=== PATIENT | male | born 1950 | race Caucasian/White ===

== ENCOUNTER 2016-05-10 12:56 | Inpatient (IN) | payer MEDICARE, OTHER ==
[~2016-05-10] VITALS: Ht 182.9 cm; Wt 111.1 kg
[2016-05-10 13:30] LABS: BASOPHILS % (AUTO) 0 % (0-10); EOSINOPHILS % (AUTO) 0 % (0-10); LYMPHOCYTES # (AUTO) 0.7 X 10^3 (1.0-4.0); LYMPHOCYTES % (AUTO) 7 % (12-44); MEAN CORPUSCULAR HEMOGLOBIN 33 PG (25-34); MEAN CORPUSCULAR HGB CONC 35 G/DL (32-36); MEAN CORPUSCULAR VOLUME 92 FL (80-99); MEAN PLATELET VOLUME 12.9 FL (7.4-10.4); MONOCYTES # (AUTO) 1.1 X 10^3 (0.0-1.0); MONOCYTES % (AUTO) 11 % (0-12); NEUTROPHILS # (AUTO) 8.4 X 10^3 (1.8-7.8); NEUTROPHILS % (AUTO) 81 % (42-75); PLATELET COUNT 100 10^3/uL (130-400); RED BLOOD COUNT 5.65 10^6/uL (4.35-5.85); RED CELL DISTRIBUTION WIDTH 16.9 % (10.0-14.5); WHITE BLOOD COUNT 10.3 10^3/uL (4.3-11.0)
[2016-05-10] MEDS ORDERED: KETOROLAC 30 MG/ML VIAL IVP ONE (13:30)
[2016-05-10] MEDS ORDERED: IOHEXOL 350 MG/ML 100 ML (OMNIPAQUE 350) VIAL IV ONE (13:30)
[2016-05-10] MEDS ORDERED: NS 100 ML (IVPB) BAG IV ONE (13:30)
[2016-05-10 13:37] LABS: ABG BASE EXCESS -0.7 MMOL/L (-2.5-2.5); ABG HCO3 24 MMOL/L (23-27); ABG OXYGEN SATURATION 80 % (94-100); ABG PCO2 38 MMHG (35-45); ABG PH 7.41 (7.37-7.43); ABG PO2 41 MMHG (79-93); ABG TCO2 24.8 MMOL/L (21.0-31.0)
[2016-05-10 13:39] LABS: ALLENS TEST YES-POS; PATIENT TEMP 98.4
[2016-05-10 13:39] LABS: INR 1.1 (0.8-1.4); PROTHROMBIN TIME PATIENT 13.4 SEC (12.2-14.7)
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
[2016-05-10 13:48] LABS: ALANINE AMINOTRANSFERASE 29 U/L (0-55); ALBUMIN 4.3 G/DL (3.2-4.5); AMYLASE 42 U/L (25-125); ANION GAP 12 MMOL/L (5-14); ASPARTATE AMINO TRANSFERASE 39 U/L (5-34); BLOOD UREA NITROGEN 18 MG/DL (7-18); BUN/CREATININE RATIO 13; CALCIUM 9.3 MG/DL (8.5-10.1); CARBON DIOXIDE 21 MMOL/L (21-32); CHLORIDE 106 MMOL/L (98-107); CREATININE SERUM 1.42 MG/DL (0.60-1.30); GFR ESTIMATED 50; GLUCOSE 110 MG/DL (70-105); LIPASE 14 U/L (8-78); MAGNESIUM 2.4 MG/DL (1.8-2.4); POTASSIUM 4.4 MMOL/L (3.6-5.0); SODIUM 139 MMOL/L (135-145); TOTAL PROTEIN 7.4 G/DL (6.4-8.2)
[2016-05-10 13:54] LABS: TROPONIN I < 0.30 NG/ML (<0.30)
[2016-05-10 13:58] LABS: BILIRUBIN,TOTAL 1.6 MG/DL (0.1-1.0)
[2016-05-10 13:59] LABS: LYMPHOCYTES % (MANUAL) 3 %; NEUTROPHILS % (MANUAL) 89 %; REACTIVE LYMPHOCYTES 3 %
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
[2016-05-10] MEDS ORDERED: fentaNYL INJECTION 100 MCG/2 ML AMP IVP STA (16:05)
[2016-05-10] MEDS ORDERED: SUFENTA 0.6MCG/ML BUPIVA 0.125 100 ML ONE (16:46)
[2016-05-10 17:00] VITALS: BP 131/70
[2016-05-10] MEDS ORDERED: CATHETER FLUSH 10 ML SYR IV PRN (17:00)
[2016-05-10] MEDS ORDERED: LACTATED RINGERS 1,000 ML IV SCH (17:25)
[2016-05-10] MEDS ORDERED: diphenhydrAMINE 50 MG/ML INJ (BENADRYL) IV PRN (17:30)
[2016-05-10] MEDS ORDERED: NALOXONE 0.4 MG/ML 1 ML (NARCAN) VIAL IV PRN ×2 (17:30)
[2016-05-10] MEDS ORDERED: ONDANSETRON 4 MG/2 ML (SDV) Z0FRAN IV PRN (17:30)
[2016-05-10] MEDS ORDERED: METOCLOPRAMIDE INJ 10 MG/2 ML (REGLAN) IV PRN (17:30)
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
[2016-05-10] MEDS: D5 1/2 NS 1000 ML IV SOLUTION 1,000 ML IV SCH ×2 (18:36→23:40)
[2016-05-10 19:00] VITALS: BP 138/77
[2016-05-10] MEDS ORDERED: FLU TRIvalent (5 YOA+) 2016-17 (AFLURIA) 0.5 ML IM ONE (19:00)
[2016-05-10] MEDS ORDERED: RT-ALBUTEROL/IPRATROPIUM 3 ML (DUONEB) VIAL INH PRN (19:45)
[2016-05-10] MEDS: RT-ALBUTEROL/IPRATROPIUM 3 ML (DUONEB) VIAL INH SCH ×2 (19:52→22:44)
[2016-05-10 20:00] VITALS: BP 90/75
[2016-05-10 21:00] VITALS: BP 96/61
[2016-05-10 22:00] VITALS: BP 98/66
[2016-05-10 23:00] VITALS: BP 102/60
[2016-05-11] VITALS (11 sets, daily range): BP systolic 88–130; BP diastolic 53–75
[2016-05-11] MEDS ORDERED: LIDOCAINE UROJET 2% GEL 10 ML PKG ONE (02:07)
[2016-05-11] MEDS: D5 1/2 NS 1000 ML IV SOLUTION 1,000 ML IV SCH (02:14)
[2016-05-11] MEDS: RT-ALBUTEROL/IPRATROPIUM 3 ML (DUONEB) VIAL INH SCH ×5 (02:37→22:02)
[2016-05-11] MEDS: EPIDURAL (SUFENTA 0.6MCG/ML BUPIVA 0.125%) 100 ML BAG EPI SCH ×2 (03:34→16:37)
[2016-05-11 04:31] LABS: BASOPHILS % (AUTO) 0 % (0-10); EOSINOPHILS # (AUTO) 0.1 10^3/uL (0.0-0.3); EOSINOPHILS % (AUTO) 1 % (0-10); LYMPHOCYTES # (AUTO) 0.8 X 10^3 (1.0-4.0); LYMPHOCYTES % (AUTO) 11 % (12-44); MEAN CORPUSCULAR HEMOGLOBIN 33 PG (25-34); MEAN CORPUSCULAR HGB CONC 35 G/DL (32-36); MEAN CORPUSCULAR VOLUME 94 FL (80-99); MEAN PLATELET VOLUME 12.6 FL (7.4-10.4); MONOCYTES # (AUTO) 0.9 X 10^3 (0.0-1.0); MONOCYTES % (AUTO) 13 % (0-12); NEUTROPHILS # (AUTO) 5.3 X 10^3 (1.8-7.8); NEUTROPHILS % (AUTO) 75 % (42-75); PLATELET COUNT 84 10^3/uL (130-400); RED BLOOD COUNT 4.96 10^6/uL (4.35-5.85); RED CELL DISTRIBUTION WIDTH 16.6 % (10.0-14.5)
[2016-05-11 04:58] LABS: ALBUMIN 3.4 G/DL (3.2-4.5); BILIRUBIN,TOTAL 1.3 MG/DL (0.1-1.0); CALCIUM 8.1 MG/DL (8.5-10.1); CREATININE SERUM 1.34 MG/DL (0.60-1.30); POTASSIUM 3.9 MMOL/L (3.6-5.0); TOTAL PROTEIN 5.9 G/DL (6.4-8.2)
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
[2016-05-11] MEDS: NICOTINE 14 MG (NICODERM) PATCH TD SCH (08:31)
[2016-05-11] MEDS: NICOTINE PATCH REMOVAL TP SCH (08:32)
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
--- NOTE | 2016-05-11 08:52 | Progress Note (SOAP) ---
Subjective Subjective/Events-last exam uneventful night. Adequate pain control with thoracic epidural. Oxygen saturation improved to more than 90 percent. Review of Systems General: No Chills, No Night Sweats, No Fatigue, No Malaise HEENT: No Head Aches, No Eye Pain, No Ear Pain, No Dysphasia, No Sinus Congestion, No Post Nasal Drip, No Sore Throat Pulmonary: No Dyspnea, No Cough, No Pleuritic Chest Pain Cardiovascular: No: Chest Pain, Edema, Lt Headedness, Orthopnea, Palpitations, Paroxysmal Noc. Dyspnea Gastrointestinal: No: Abdominal Pain, Constipation, Diarrhea, Hematochezia, Melena, Nausea, Vomiting Genitourinary: No Dysuria, No Frequency, No Incontinence, No Hematuria, No Retention Musculoskeletal: No: arm pain, back pain, foot pain, hand pain, leg pain, neck pain, other, shoulder pain Neurological: No: Change in speech, Confusion, Incoordination, Numbness, Other , Seizures, Weakness Objective Exam Vital Signs Date Time Temp Pulse Resp B/P Pulse Ox O2 Delivery O2 Flow Rate FiO2 05/11/16 08:34 97.7 75 15 104/61 90 Nasal Cannula 2.00 05/11/16 07:00 94 05/11/16 06:46 94 2.00 05/11/16 06:00 70 13 105/72 94 Nasal Cannula 2.00 05/11/16 05:00 66 16 109/60 92 Nasal Cannula 2.00 05/11/16 04:11 98.7 05/11/16 04:00 94 2.00 05/11/16 04:00 67 17 103/58 92 Nasal Cannula 2.00 05/11/16 03:00 68 16 88/62 92 Nasal Cannula 2.00 05/11/16 02:37 96 2.00 05/11/16 02:00 78 21 115/53 94 Nasal Cannula 2.00 05/11/16 01:00 86 05/11/16 01:00 86 24 117/57 93 Nasal Cannula 2.00 05/11/16 00:04 97.8 05/11/16 00:00 74 18 94/59 92 Nasal Cannula 2.00 05/11/16 00:00 94 2.00 05/10/16 23:00 73 16 102/60 92 Nasal Cannula 2.00 05/10/16 22:44 94 2.00 05/10/16 22:00 72 17 98/66 90 Nasal Cannula 2.00 05/10/16 21:00 75 17 96/61 91 Nasal Cannula 2.00 05/10/16 20:00 73 15 90/75 96 Nasal Cannula 2.00 05/10/16 20:00 92 2.00 05/10/16 19:54 92 2.00 05/10/16 19:39 93 05/10/16 19:20 98.2 Nasal Cannula 2.00 05/10/16 19:00 70 18 138/77 96 Nasal Cannula 2.00 05/10/16 19:00 93 05/10/16 17:00 93 2.00 05/10/16 17:00 98.0 77 11 131/70 97 Nasal Cannula 2.00 05/10/16 16:36 73 16 95 2 05/10/16 13:05 98.4 83 15 161/82 93 Room Air 2 05/10/16 13:05 93 Nasal Cannula 2 I & O 05/11/16 07:00 Intake Total 1110 ml Output Total 600 ml Balance 510 ml Capillary Refill : Less Than 3 Seconds General Appearance: No Apparent Distress HEENT: PERRL/EOMI Neck: Normal Inspection Respiratory: Decreased Breath Sounds Cardiovascular: Regular Rate, Rhythm Gastrointestinal: non tender soft Extremity: Normal Capillary Refill Normal Inspection Neurologic/Psychiatric: Alert Oriented x3 Skin: Warm/Dry Results Lab Laboratory Tests 05/10/16 13:20: Activated Partial Thromboplast Time 26, Alanine Aminotransferase (ALT/SGPT) 29, Albumin 4.3, Alkaline Phosphatase 120, Amylase Level 42, Anion Gap 12, Aspartate Amino Transf (AST/SGOT) 39H, BUN/Creatinine Ratio 13, Basophils # ( Auto) 0.0, Basophils (%) (Auto) 0, Blood Morphology Comment NORMAL, Blood Urea Nitrogen 18, Calcium Level 9.3, Carbon Dioxide Level 21, Chloride Level 106, Creatinine 1.42H, Eosinophils # (Auto) 0.0, Eosinophils (%) (Auto) 0, Estimat Glomerular Filtration Rate 50, Glucose Level 110H, Hematocrit 52, Hemoglobin 18.4H, INR Comment 1.1, Lipase 14, Lymphocytes # (Auto) 0.7L, Lymphocytes % ( Manual) 3, Lymphocytes (%) (Auto) 7L, Magnesium Level 2.4, Mean Corpuscular Hemoglobin 33, Mean Corpuscular Hemoglobin Concent 35, Mean Corpuscular Volume 92, Mean Platelet Volume 12.9H, Monocytes # (Auto) 1.1H, Monocytes % (Manual) 5 , Monocytes (%) (Auto) 11, Neutrophils # (Auto) 8.4H, Neutrophils % (Manual) 89 , Neutrophils (%) (Auto) 81H, Platelet Count 100L, Potassium Level 4.4, Prothrombin Time 13.4, Reactive Lymphocytes 3, Red Blood Count 5.65, Red Cell Distribution Width 16.9H, Sodium Level 139, Total Bilirubin 1.6H, Total Protein 7.4, Troponin I < 0.30, White Blood Count 10.3 05/10/16 13:28: Benjamin Test YES-POS, Arterial Blood Base Excess -0.7, Arterial Blood HCO3 24, Arterial Blood Oxygen Saturation 80L, Arterial Blood Partial Pressure CO2 38, Arterial Blood Partial Pressure O2 41L, Arterial Blood Total CO2 24.8, Arterial Blood pH 7.41, Blood Gas Inspired Oxygen 2, Blood Gas Patient Temperature 98.4, Blood Gas Puncture Site LT RADIAL, Blood Gas Ventilator Setting NO 05/11/16 03:45: Alanine Aminotransferase (ALT/SGPT) 26, Albumin 3.4, Alkaline Phosphatase 92, Anion Gap 12, Aspartate Amino Transf (AST/SGOT) 33, BUN/Creatinine Ratio 19, Basophils # (Auto) 0.0, Basophils (%) (Auto) 0, Blood Urea Nitrogen 25H, Calcium Level 8.1L, Carbon Dioxide Level 21, Chloride Level 102, Creatinine 1.34H, Eosinophils # (Auto) 0.1, Eosinophils (%) (Auto) 1, Estimat Glomerular Filtration Rate 53, Glucose Level 118H, Hematocrit 47, Hemoglobin 16.1, Lymphocytes # (Auto) 0.8L, Lymphocytes (%) (Auto) 11L, Mean Corpuscular Hemoglobin 33, Mean Corpuscular Hemoglobin Concent 35, Mean Corpuscular Volume 94, Mean Platelet Volume 12.6H, Monocytes # (Auto) 0.9, Monocytes (%) (Auto) 13H , Neutrophils # (Auto) 5.3, Neutrophils (%) (Auto) 75, Platelet Count 84L, Potassium Level 3.9, Red Blood Count 4.96, Red Cell Distribution Width 16.6H, Sodium Level 135, Total Bilirubin 1.3H, Total Protein 5.9L, White Blood Count 7.0 Assessment/Plan Assessment/Plan Assess & Plan/Chief Complaint gentleman with isolated left rib fractures. Epidural in place. Could be transferred to the floor. Diagnosis/Problems: Final Diagnosis fracture of ribs left side fixed to the ninth. Pulmonary contusion. Chronic smoking Clinical Quality Measures DVT/VTE Risk/Contraindication: Risk Factor Score Per Nursin RFS Level Per Nursing on Admit: 3=High SYLVIA CARRILLO MD May 11, 2016 8:52 am
[2016-05-11] MEDS ORDERED: CARB15DR3 OU (13:07)
[2016-05-11] MEDS ORDERED: LISI-552 PO (13:07)
[2016-05-11] MEDS ORDERED: CETI10TA17 PO (13:07)
[2016-05-11] MEDS ORDERED: PROP15DR OU (13:07)
--- NOTE | 2016-05-11 14:49 | Progress Note-Standard ---
Standard Progress Note Progress Notes/Assess & Plan Progress/Assessment & Plan 05/11/16 [id number]: Patient in ICU 10. Sitting up in bed. Thoracic epidural running at 8cc/hr. Patient reports pain of zero/10. No complaints. JOHNIE JUAN CRNA May 11, 2016 14:49
[2016-05-12 00:25] VITALS: BP 117/73
[2016-05-12] MEDS: RT-ALBUTEROL/IPRATROPIUM 3 ML (DUONEB) VIAL INH SCH ×6 (01:59→22:02)
[2016-05-12] MEDS: EPIDURAL (SUFENTA 0.6MCG/ML BUPIVA 0.125%) 100 ML BAG EPI SCH ×2 (03:35→15:08)
[2016-05-12 04:00] VITALS: BP 110/70
[2016-05-12 08:00] VITALS: BP 129/56
[2016-05-12] MEDS: NICOTINE 14 MG (NICODERM) PATCH TD SCH (08:12)
[2016-05-12] MEDS: NICOTINE PATCH REMOVAL TP SCH (08:14)
[2016-05-12] MEDS ORDERED: MAGNESIUM CITRATE 300 ML BTL PO NR (10:45)
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
[2016-05-12] MEDS: lisINopril 10 MG (PRINIVIL) TAB PO SCH (11:39)
[2016-05-12 12:54] VITALS: BP 139/69
[2016-05-12 16:00] VITALS: BP 128/59
[2016-05-12 20:00] VITALS: BP 144/67
[2016-05-13] VITALS: BP 126/58
[2016-05-13] MEDS: RT-ALBUTEROL/IPRATROPIUM 3 ML (DUONEB) VIAL INH SCH ×5 (02:20→20:34)
[2016-05-13 04:00] VITALS: BP 126/61
[2016-05-13 08:00] VITALS: BP 131/80
[2016-05-13] MEDS: EPIDURAL (SUFENTA 0.6MCG/ML BUPIVA 0.125%) 100 ML BAG EPI SCH (08:10)
[2016-05-13] MEDS ORDERED: lisINopril 10 MG (PRINIVIL) TAB PO SCH (09:00)
[2016-05-13] MEDS: NICOTINE 14 MG (NICODERM) PATCH TD SCH (09:14)
[2016-05-13] MEDS: lisINopril 10 MG (PRINIVIL) TAB PO SCH (09:14)
[2016-05-13] MEDS: NICOTINE PATCH REMOVAL TP SCH (09:14)
[2016-05-13 12:00] VITALS: BP 139/82
--- NOTE | 2016-05-13 13:37 | Progress Note-Standard ---
Standard Progress Note Progress Notes/Assess & Plan Progress/Assessment & Plan removal of epidural catheter, tip intact. REAGAN ANDREA CRNA May 13, 2016 13:37
--- NOTE | 2016-05-13 15:24 | Progress Note (SOAP) ---
Subjective Subjective/Events-last exam Patient reports doing better now that epidural and frank have been DC'd. Patient up in bedside chair. Reports he is having some discomfort of the left chest/back area. Tolerating diet. Having BMs. No N/V. No abdominal pain. Reports that it hurts to cough and deep breathe. Review of Systems General: No Chills, No Night Sweats Gastrointestinal: No: Abdominal Pain, Constipation, Nausea, Vomiting Objective Exam Vital Signs Date Time Temp Pulse Resp B/P Pulse Ox O2 Delivery O2 Flow Rate FiO2 05/13/16 15:10 91 05/13/16 12:00 99.1 94 20 139/82 92 Nasal Cannula 1.00 05/13/16 10:17 94 0.50 05/13/16 08:00 95 20 131/80 94 Nasal Cannula 1.00 05/13/16 08:00 99.6 05/13/16 08:00 2.00 05/13/16 06:42 93 0.50 05/13/16 04:00 100.0 97 20 126/61 90 Nasal Cannula 1.00 05/13/16 02:20 93 05/13/16 00:00 99.9 102 20 126/58 92 Nasal Cannula 0.00 05/12/16 22:03 93 05/12/16 20:00 2.00 05/12/16 20:00 97.8 90 18 144/67 93 Nasal Cannula 2.00 05/12/16 18:36 92 05/12/16 16:00 98.2 82 18 128/59 94 Nasal Cannula 2.00 I & O 05/13/16 07:00 Intake Total 2580 ml Output Total 1000 ml Balance 1580 ml Capillary Refill : Less Than 3 Seconds General Appearance: No Apparent Distress WD/WN HEENT: PERRL/EOMI Neck: Full Range of Motion Normal Inspection Supple Respiratory: No Accessory Muscle Use No Respiratory Distress Cardiovascular: Regular Rate, Rhythm No Edema Gastrointestinal: normal bowel sounds non tender soft Extremity: Normal Capillary Refill Normal Inspection Normal Range of Motion Neurologic/Psychiatric: Alert Oriented x3 Skin: Normal Color Warm/Dry Assessment/Plan Assessment/Plan Assess & Plan/Chief Complaint Isolated left rib fractures fifth to the midline and associated pulmonary contusion. Epidural and Frank DC'd diet. Encourage ambulation and IS. Duoneb breathing treatments. PO pain medication PRN. Diagnosis/Problems: Clinical Quality Measures DVT/VTE Risk/Contraindication: Risk Factor Score Per Nursin RFS Level Per Nursing on Admit: 3=High BRYCE AKBAR APRN May 13, 2016 15:23
[2016-05-13 16:53] VITALS: BP 123/58
[2016-05-13 20:05] VITALS: BP 129/65
[2016-05-13] MEDS: oxyCODONE/APAP 5/325MG (PERCOCET 5) TABLET PO PRN (21:02)
[2016-05-14] VITALS: BP 123/86
[2016-05-14 04:10] VITALS: BP 142/65
[2016-05-14] MEDS: oxyCODONE/APAP 5/325MG (PERCOCET 5) TABLET PO PRN ×2 (04:21→07:47)
[2016-05-14] MEDS: RT-ALBUTEROL/IPRATROPIUM 3 ML (DUONEB) VIAL INH SCH (07:43)
[2016-05-14 08:00] VITALS: BP 147/67
[2016-05-14] MEDS: NICOTINE PATCH REMOVAL TP SCH (08:47)
[2016-05-14] MEDS: NICOTINE 14 MG (NICODERM) PATCH TD SCH (08:47)
[2016-05-14] MEDS: lisINopril 10 MG (PRINIVIL) TAB PO SCH (08:48)
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
[2016-05-14] MEDS ORDERED: HYDR-3812 PO (11:55)
--- NOTE | 2016-05-14 11:57 | Discharge Inst-Simple/Standard ---
Discharge Inst-Standard Discharge Medications New, Converted or Re-Newed RX: RX on Chart Patient Instructions/Follow Up Plan of Care/Instructions/FU: To use incentive spirometry at home. F/U in 10 days Activity as Tolerated: Yes Discharge Diet: No Restrictions SYLVIA CARRILLO MD May 14, 2016 11:56 am
[2016-05-14 12:00] VITALS: BP 118/58
--- NOTE | 2016-05-14 12:00 | Progress Note (SOAP) ---
Subjective Subjective/Events-last exam Pain control much better. Able to get out of bed and move around by himself. Review of Systems General: No Chills, No Night Sweats, No Fatigue, No Malaise HEENT: No Head Aches, No Eye Pain, No Ear Pain, No Dysphasia, No Sinus Congestion, No Post Nasal Drip, No Sore Throat Pulmonary: Cough Pleuritic Chest Pain Cardiovascular: No: Chest Pain, Edema, Lt Headedness, Orthopnea, Palpitations, Paroxysmal Noc. Dyspnea Gastrointestinal: No: Abdominal Pain, Constipation, Diarrhea, Hematochezia, Melena, Nausea, Vomiting Genitourinary: No Dysuria, No Frequency, No Incontinence, No Hematuria, No Retention Musculoskeletal: No: arm pain, back pain, foot pain, hand pain, leg pain, neck pain, other, shoulder pain Neurological: No: Change in speech, Confusion, Incoordination, Numbness, Other , Seizures, Weakness Objective Exam Vital Signs Date Time Temp Pulse Resp B/P Pulse Ox O2 Delivery O2 Flow Rate FiO2 05/14/16 08:00 91 0.00 05/14/16 08:00 98.8 75 20 147/67 91 Room Air 05/14/16 07:43 91 05/14/16 04:10 99.6 78 22 142/65 92 Room Air 05/14/16 00:00 98.1 91 18 123/86 93 Room Air 05/13/16 20:34 90 05/13/16 20:05 100.2 92 18 129/65 95 Room Air 05/13/16 16:53 100.1 94 20 123/58 92 05/13/16 15:12 92 05/13/16 15:10 91 05/13/16 12:00 99.1 94 20 139/82 92 Nasal Cannula 1.00 I & O 05/14/16 07:00 Intake Total 1950 ml Output Total 625 ml Balance 1325 ml Capillary Refill : Less Than 3 Seconds General Appearance: No Apparent Distress Neck: Normal Inspection Respiratory: Lungs Clear Cardiovascular: Regular Rate, Rhythm Gastrointestinal: non tender soft no organomegaly Extremity: Normal Inspection Neurologic/Psychiatric: Alert Oriented x3 Skin: Warm/Dry Assessment/Plan Assessment/Plan Assess & Plan/Chief Complaint gentleman with isolated left rib fractures. Epidural in place. Could be transferred to the floor. isolated left rib fractures fifth to the midline. Associated pulmonary contusion. Epidural be removed within 24 hours. Magnesium citrate to address constipation. Pain control better. Discharge home Diagnosis/Problems: Final Diagnosis Fracture of ribs on the left side Clinical Quality Measures DVT/VTE Risk/Contraindication: Risk Factor Score Per Nursin RFS Level Per Nursing on Admit: 3=High SYLVIA CARRILLO MD May 14, 2016 12:00 pm
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
--- NOTE | 2016-06-14 08:12 | Anesthesia Pain Mgmt-Epidural ---
Anesthesia-Pain Mgmnt Epidural Pre-Procedure Indication: Analgesia Chart Review and Risk/Benefits/Options Discussed Procedure Date of Service: May 12, 2016 Time of Service: 13:03 Progress Note post dated note pt doing well CARMEN BALES CRNA Jun 14, 2016 08:12
== END 2016-05-14 14:06 | disposition home or self-care (01) | DRG 184 ==
LOC: ER 13:02 → ICU 14:50 → 4TH 05-11 14:59
PROVIDERS: ADMIT Surgery; ATTEND Surgery
DX: S22.42XA Multiple fractures of ribs, left side, initial encounter for closed fracture (principal); S27.321A Contusion of lung, unilateral, initial encounter; S40.012A Contusion of left shoulder, initial encounter; J41.0 Simple chronic bronchitis; I10 Essential (primary) hypertension; F17.210 Nicotine dependence, cigarettes, uncomplicated; K59.00 Constipation, unspecified; J98.4 Other disorders of lung; Z86.19 Personal history of other infectious and parasitic diseases; V29.9XXA Motorcycle rider (driver) (passenger) injured in unspecified traffic accident, initial encounter; Y92.89 Other specified places as the place of occurrence of the external cause
CPT/HCPCS: 36415; 70450; 71010; 71260; 72125; 74177; 80053; 82150; 82805; 83690; 83735; 84484; 85007; 85025; 85027; 85610; 85730; 93005; 93041; 94010; 94640; 94664; 94760; 96374; 96375

== ENCOUNTER 2018-03-16 12:28 | Outpatient (CLI) | payer MEDICARE ==
[~2018-03-16] VITALS: Ht 182.9 cm; Wt 109.9 kg
[~2018-03-16 12:28] MED LIST: ACHD5005 PO; CARB15DR3 OU; CETI10TA17 PO; LISI-552 PO; PROP15DR OU
[2018-03-16 12:42] VITALS: BP 141/75
[2018-03-16 13:04] LABS: BASOPHILS % (AUTO) 0 % (0-10); EOSINOPHILS # (AUTO) 0.1 10^3/uL (0.0-0.3); EOSINOPHILS % (AUTO) 2 % (0-10); HEMATOCRIT 50 % (40-54); HEMOGLOBIN 17.3 G/DL (13.3-17.7); LYMPHOCYTES # (AUTO) 0.7 X 10^3 (1.0-4.0); LYMPHOCYTES % (AUTO) 15 % (12-44); MEAN CORPUSCULAR HEMOGLOBIN 31 PG (25-34); MEAN CORPUSCULAR HGB CONC 35 G/DL (32-36); MEAN CORPUSCULAR VOLUME 90 FL (80-99); MEAN PLATELET VOLUME 11.1 FL (7.4-10.4); MONOCYTES # (AUTO) 0.6 X 10^3 (0.0-1.0); MONOCYTES % (AUTO) 13 % (0-12); NEUTROPHILS # (AUTO) 3.4 X 10^3 (1.8-7.8); NEUTROPHILS % (AUTO) 70 % (42-75); PLATELET COUNT 104 10^3/uL (130-400); RED BLOOD COUNT 5.52 10^6/uL (4.35-5.85); RED CELL DISTRIBUTION WIDTH 14.3 % (10.0-14.5); WHITE BLOOD COUNT 4.8 10^3/uL (4.3-11.0)
[2018-03-16 13:22] LABS: BUN/CREATININE RATIO 10; CARBON DIOXIDE 21 MMOL/L (21-32); CHLORIDE 102 MMOL/L (98-107); CREATININE SERUM 0.99 MG/DL (0.60-1.30); GFR ESTIMATED > 60; GLUCOSE 94 MG/DL (70-105); POTASSIUM 4.1 MMOL/L (3.6-5.0); SODIUM 133 MMOL/L (135-145)
--- NOTE | 2018-03-16 13:58 | Diagnostic Imaging Report ---
CLINICAL INDICATION: Preop chest x-ray for neck biopsy. EXAM: Chest x-ray PA and lateral views. COMPARISONS: Chest x-ray dated 05/11/2016. FINDINGS: Lungs/pleura: There are curvilinear opacities in both lung bases suspected to represent atelectasis. There is no lung infiltrate. Remainder of the lungs are clear. There is no pneumothorax. There is no pleural effusion. Mediastinum: Unremarkable. Pulmonary vasculature: Unremarkable. Heart: Unremarkable. Bones/extrathoracic soft tissue: There are hypertrophic spurs involving the thoracic spine. IMPRESSION: Suspected mild bibasilar atelectasis. Otherwise, there is no radiographic evidence of acute cardiopulmonary process. Dictated by: Dictated on workstation # [id number]
== END 2018-03-16 14:31 | disposition home or self-care (01) ==
LOC: PREOP 12:28
PROVIDERS: ATTEND Otolaryngology Otolaryngology/Facial Plastic Surgery
DX: Z01.810 Encounter for preprocedural cardiovascular examination (principal); Z01.811 Encounter for preprocedural respiratory examination; Z01.812 Encounter for preprocedural laboratory examination; Z11.2 Encounter for screening for other bacterial diseases; R22.1 Localized swelling, mass and lump, neck
CPT/HCPCS: 36415; 71046; 80048; 85025; 87081; 93005

== ENCOUNTER 2018-03-23 06:46 | Day surgery (SDC) | payer MEDICARE ==
[~2018-03-23] VITALS: Ht 182.9 cm; Wt 109.9 kg
[2018-03-23 07:10] VITALS: BP 130/67
[2018-03-23] MEDS ORDERED: LACTATED RINGERS 1,000 ML IV PRN (07:21)
[2018-03-23] MEDS ORDERED: CATHETER FLUSH 10 ML SYR IV PRN (07:45)
[2018-03-23] MEDS ORDERED: LIDOCAINE PF 2% 5 ML (XYLOCAINE) VIAL ONE (07:53)
[2018-03-23] MEDS ORDERED: ONDANSETRON 4 MG/2 ML (SDV) Z0FRAN ONE (07:53)
[2018-03-23] MEDS ORDERED: proPOfol 200 MG/20 ML (DIPRIVAN) VIAL IV ONE (07:53)
[2018-03-23] MEDS ORDERED: ROCURONIUM 10 MG/ML 5 ML SYRINGE IV ONE (07:53)
[2018-03-23] MEDS ORDERED: fentaNYL INJECTION 100 MCG/2 ML AMP ONE (07:53)
[2018-03-23] MEDS ORDERED: MIDAZOLAM 2 MG/2 ML (VERSED) VIAL ONE (07:53)
[2018-03-23] MEDS ORDERED: MUPIROCIN 2% OINT 22 GM (BACTROBAN) TUBE ONE (07:57)
[2018-03-23] MEDS ORDERED: LIDOCAINE/EPI 1%-1:100,000 (XYLOCAINE) 20ML ONE (07:57)
--- NOTE | 2018-03-23 09:30 | Progress Note-Pre Operative ---
Pre-Operative Progress Note H&P Reviewed The H&P was reviewed, patient examined and no changes noted. Date Seen by Provider: Mar 23, 2018 Time Seen by Provider: 08:00 Date H&P Reviewed: Mar 23, 2018 Time H&P Reviewed: 08:00 Pre-Operative Diagnosis: Right Post Aruciular Mass-possible lymphoma RAHUL DONATO MD Mar 23, 2018 09:30
[2018-03-23] MEDS ORDERED: NEOSTIGMINE 1 MG/ML 5 ML SYRINGE ONE (10:11)
[2018-03-23] MEDS ORDERED: GLYCOPYRROLATE 0.2 MG/ML (ROBINUL) 2 ML VIAL ONE (10:11)
[2018-03-23] MEDS ORDERED: PHENYLEPHRINE 100 MCG/ML 10 ML (ANESTHESIA) SYR ONE (10:14)
--- NOTE | 2018-03-23 10:19 | Progress Note-Post Operative ---
Post-Operative Progess Note Surgeon (s)/Fisher Oyster (s) Surgeon RAHUL DONATO MD [facility] Oyster n/a Pre-Operative Diagnosis Right Post Aruciular Mass-possible lymphoma Post-Operative Diagnosis same Post-Op Procedure Note Date of Procedure: Mar 23, 2018 Name of Procedure Performed: Incisional Biopsy of Right INferior PArotid Mass Description & Findings Description and Findings: n/a Anesthesia Type get Estimated Blood Loss minimal Packing none. Specimen(s) collected/removed right inferior Parotid Mass-to patholyg fresh to be treated as a lymphoma RAHUL DONATO MD Mar 23, 2018 10:19
[2018-03-23] MEDS ORDERED: ONDANSETRON 4 MG/2 ML (SDV) Z0FRAN IVP PRN (10:30)
[2018-03-23] MEDS ORDERED: MEPERIDINE (DEMEROL) INJ 50 MG/ML IVP ONE (10:30)
[2018-03-23] MEDS ORDERED: morphine INJ 10 MG/ML 1ML (SYR OR VIAL) IVP ONE (10:30)
[2018-03-23] MEDS ORDERED: ACETAMINOPHEN 325 MG TABLET PO PRN (10:30)
[2018-03-23] MEDS ORDERED: HYDROcodone/APAP 5 MG/325 MG (LORTAB) TAB PO PRN (10:30)
[2018-03-23] MEDS ORDERED: SEVOFLURANE (ULTANE) 15 ML INHAL SOLN ONE (10:33)
[2018-03-23] MEDS ORDERED: HYDR-3812 PO (10:44)
[2018-03-23 11:30] VITALS: BP 111/64
[2018-03-23 12:00] VITALS: BP_SYST 111; BP_SYST 127; BP_DIAS 64; BP_DIAS 79
--- NOTE | 2018-03-23 12:09 | NUR ---
LORTAB 1 PO GIVEN FOR PAIN THAT THE PATIENT RATES A 5. STATES, "I DON'T THINK I NEED 2 OF THEM."
--- NOTE | 2018-03-23 12:15 | Anesthesia-General Post-Op ---
General Patient Condition Mental Status/LOC: Same as Preop Cardiovascular: Satisfactory Nausea/Vomiting: Absent Respiratory: Satisfactory Pain: Controlled Complications: Absent Post Op Complications Complications None Follow Up Care/Instructions Patient Instructions None needed. Anesthesia/Patient Condition Patient Condition Patient is doing well, no complaints, stable vital signs, no apparent adverse anesthesia problems. No complications reported per nursing. JOHNIE JUAN CRNA Mar 23, 2018 12:15
== END 2018-03-23 12:15 | disposition home or self-care (01) ==
LOC: SDC 06:46
PROVIDERS: ATTEND Otolaryngology Otolaryngology/Facial Plastic Surgery
DX: R22.1 Localized swelling, mass and lump, neck (principal); I10 Essential (primary) hypertension; F17.210 Nicotine dependence, cigarettes, uncomplicated; M06.9 Rheumatoid arthritis, unspecified; E66.9 Obesity, unspecified; Z68.32 Body mass index [BMI] 32.0-32.9, adult; Z86.19 Personal history of other infectious and parasitic diseases; Z79.899 Other long term (current) drug therapy

== ENCOUNTER → 2018-06-12 | Outpatient (CLI) | payer OTHER ==
[~2018-06-12] MED LIST changes: +BARIUM SUSPENSION 2.1% (VANILLA SILQ) 450 ML PO ONE; +HOLD METFORMIN - RECEIVED CONTRAST 20 ML VIAL IV SCH; +HYDR-3812 PO; +IOHEXOL 350 MG/ML 100 ML (OMNIPAQUE 350) VIAL IV ONE
--- NOTE | 2018-06-12 09:34 | Diagnostic Imaging Report ---
INDICATION: Follicular lymphoma. Pre and postcontrast axial imaging through the abdomen and pelvis with postcontrast axial imaging through the neck and chest was performed. Correlation is made with prior CT chest, abdomen and pelvis from 05/10/2016. No prior CT neck study is available for comparison. CT neck: FINDINGS: The visualized intracranial structures are unremarkable. The posterior nasopharynx, oropharynx and larynx are unremarkable. No thyroid masses are detected. Submandibular glands are unremarkable. There appears to be an enhancing mass within the right parotid gland measuring 2.9 x 3.2 cm. There appears to be some infiltration along the inferior aspect of the right parotid as well with high density. Left parotid is unremarkable. No jugulodigastric or posterior cervical lymphadenopathy is seen. No fluid collection is identified. IMPRESSION: Right parotid mass. This appears to be somewhat ill-defined along the inferior aspect of the gland. Tissue sampling may be indicated. CT chest: FINDINGS: No axillary lymphadenopathy is identified. No definite mediastinal or hilar lymphadenopathy is identified. There are coronary arterial calcifications. No pericardial fluid is seen. There is a very small left pleural effusion. Parenchymal evaluation does show a somewhat ill-defined density in the right upper lobe measuring approximately 2.4 cm in diameter. There is some scarring or atelectasis in the posterior aspect of the left upper lobe. Otherwise, lungs appear to be clear. Old healed left-sided rib fractures again noted. IMPRESSION: 1. Small left pleural effusion. No thoracic lymphadenopathy is seen. There is some ill-defined density in the right upper lobe. Close followup to confirm stability and/or resolution is recommended with repeat study in 4-[address] abdomen and pelvis: FINDINGS: The liver demonstrates somewhat nodular contour suspicious for cirrhosis. There is an area of ill-defined low density in the right lobe of the liver suspicious for a mass. This measures approximately 6.7 cm AP diameter. Gallbladder appears to be thickwalled and contains calcifications. No biliary ductal dilatation is seen. The pancreas and spleen are unremarkable. No adrenal mass is detected. Kidneys are unremarkable apart from a tiny nonobstructing calculus in lower pole on the right. Aorta is calcified but nonaneurysmal. Patient has developed moderate ascites throughout the abdomen. There appears to be infiltration of the omentum with some nodularity suspicious for peritoneal carcinomatosis. This appears to be new since prior exam. The colon is decompressed. Small bowel loops are normal caliber. There appeared to be some varices in the upper abdomen suspicious for portal hypertension. There are some mildly prominent lymph nodes in the central retroperitoneum as well. Imaging through the pelvis demonstrates some moderate ascites. Bladder is decompressed. Prostate is normal in size. No significant inguinal or iliac lymphadenopathy is seen. IMPRESSION: 1. Development of a large area of ill-defined low density in the right lobe of the liver suspicious for a liver mass. There is nodular contour to the liver suggestive of cirrhosis. There has also been development of moderate ascites throughout the abdomen and pelvis with some upper abdominal varices suspicious for portal hypertension. There is some infiltration and nodularity to the omentum. Omental caking with peritoneal carcinomatosis is suspected. 2. Abnormal appearance to the gallbladder which contains small stones. 3. Mild central retroperitoneal lymphadenopathy. Dictated by: Dictated on workstation # [id number]
== END ==
LOC: RAD 08:28
PROVIDERS: ATTEND Internal Medicine Hematology & Oncology
DX: C82.90 Follicular lymphoma, unspecified, unspecified site (principal); K11.8 Other diseases of salivary glands; J90 Pleural effusion, not elsewhere classified; J98.4 Other disorders of lung; K76.89 Other specified diseases of liver; K66.8 Other specified disorders of peritoneum; K80.20 Calculus of gallbladder without cholecystitis without obstruction; R18.8 Other ascites
CPT/HCPCS: 70491; 71260; 74178

== ENCOUNTER 2018-06-20 14:23 | Outpatient (RCR) | payer OTHER ==
[2018-06-07 09:55] LABS: BASOPHILS % (AUTO) 1 % (0-10); EOSINOPHILS # (AUTO) 0.1 10^3/uL (0.0-0.3); EOSINOPHILS % (AUTO) 2 % (0-10); HEMATOCRIT 45 % (40-54); LYMPHOCYTES # (AUTO) 0.6 X 10^3 (1.0-4.0); LYMPHOCYTES % (AUTO) 13 % (12-44); MEAN CORPUSCULAR HEMOGLOBIN 31 PG (25-34); MEAN CORPUSCULAR HGB CONC 35 G/DL (32-36); MEAN CORPUSCULAR VOLUME 87 FL (80-99); MEAN PLATELET VOLUME 11.7 FL (7.4-10.4); MONOCYTES # (AUTO) 0.6 X 10^3 (0.0-1.0); MONOCYTES % (AUTO) 13 % (0-12); NEUTROPHILS # (AUTO) 3.1 X 10^3 (1.8-7.8); NEUTROPHILS % (AUTO) 72 % (42-75); PLATELET COUNT 134 10^3/uL (130-400); RED CELL DISTRIBUTION WIDTH 14.6 % (10.0-14.5)
[2018-06-07 10:16] LABS: ALANINE AMINOTRANSFERASE 15 U/L (0-55); ALBUMIN 3.6 GM/DL (3.2-4.5); ALKALINE PHOSPHATASE 138 U/L (40-136); BILIRUBIN,TOTAL 1.1 MG/DL (0.1-1.0); BUN/CREATININE RATIO 13; CALCIUM 8.9 MG/DL (8.5-10.1); CARBON DIOXIDE 24 MMOL/L (21-32); CHLORIDE 99 MMOL/L (98-107); CREATININE SERUM 1.19 MG/DL (0.60-1.30); GFR ESTIMATED > 60; GLUCOSE 93 MG/DL (70-105); POTASSIUM 4.1 MMOL/L (3.6-5.0); SODIUM 134 MMOL/L (135-145); TOTAL PROTEIN 6.6 GM/DL (6.4-8.2)
[~2018-06-20 14:23] MED LIST changes: -BARIUM SUSPENSION 2.1% (VANILLA SILQ) 450 ML PO ONE; -HOLD METFORMIN - RECEIVED CONTRAST 20 ML VIAL IV SCH; -IOHEXOL 350 MG/ML 100 ML (OMNIPAQUE 350) VIAL IV ONE
== END 2018-09-05 | disposition home or self-care (01) ==
LOC: ONC 14:23
PROVIDERS: ATTEND Internal Medicine Hematology & Oncology
DX: C82.90 Follicular lymphoma, unspecified, unspecified site (principal); K74.60 Unspecified cirrhosis of liver; K76.6 Portal hypertension; R18.8 Other ascites; Z86.19 Personal history of other infectious and parasitic diseases; Z85.828 Personal history of other malignant neoplasm of skin; Z79.899 Other long term (current) drug therapy
CPT/HCPCS: 36415; 80053; 82105; 82784; 83615; 83883; 84155; 84165; 85025; 99213; 99214

== ENCOUNTER 2018-09-18 14:16 | Outpatient (RCR) | payer OTHER ==
[2018-09-26] MEDS ORDERED: TAMS0.4C98 PO (12:49)
[2018-09-26] MEDS ORDERED: MIDO10TA PO (12:49)
== END 2018-12-17 | disposition home or self-care (01) ==
LOC: ONC 14:16
PROVIDERS: ATTEND Internal Medicine Hematology & Oncology
DX: C22.0 Liver cell carcinoma (principal); C82.90 Follicular lymphoma, unspecified, unspecified site; K74.60 Unspecified cirrhosis of liver; K76.6 Portal hypertension; R18.8 Other ascites; Z86.19 Personal history of other infectious and parasitic diseases; Z85.828 Personal history of other malignant neoplasm of skin; Z79.899 Other long term (current) drug therapy
CPT/HCPCS: 99213

== ENCOUNTER 2018-09-26 13:00 | Outpatient (CLI) | payer OTHER ==
[~2018-09-26] VITALS: Ht 182.9 cm; Wt 109.9 kg
[~2018-09-26 13:00] MED LIST changes: +MIDO10TA PO; +TAMS0.4C98 PO
== END 2018-09-26 13:27 | disposition home or self-care (01) ==
LOC: PREOP 13:00
PROVIDERS: ATTEND Surgery
DX: Z01.818 Encounter for other preprocedural examination (principal)

== ENCOUNTER 2018-09-29 07:30 | Day surgery (SDC) | payer OTHER ==
[~2018-09-29] VITALS: Ht 182.9 cm; Wt 109.9 kg
[2018-09-29] VITALS (10 sets, daily range): BP systolic 96–121; BP diastolic 46–70
--- NOTE | 2018-09-29 08:18 | Progress Note-Pre Operative ---
Pre-Operative Progress Note H&P Reviewed The H&P was reviewed, patient examined and no changes noted. Date Seen by Provider: Sep 29, 2018 Time Seen by Provider: 08:15 Date H&P Reviewed: Sep 29, 2018 Time H&P Reviewed: 08:15 Pre-Operative Diagnosis: hepatocellular carcinoma, symptomatic ascites ALEX RED DO Sep 29, 2018 08:18
[2018-09-29] MEDS ORDERED: PROPOFOL INJECTION 50 ML IV ONE (08:23)
[2018-09-29] MEDS ORDERED: LACTATED RINGERS 1,000 ML IV PRN (08:40)
[2018-09-29] MEDS ORDERED: ceFAZolin INJECTION 1,000 MG in WATER (STERILE) FOR INJECTION 10 ML IV ONE (08:45)
--- OUTSIDE RECORDS SUMMARY | 2018-09-29 08:49 | XMS REPORT | Clinical Summary ---
Author Author [facility] Organization [facility] Address Unknown Phone Unavailable Care Team Providers Care Process Plant Operator Name Role Phone Mary Ellen Alvarez MD Unavailable Mary Ellen Alvarez MD PCP Source Comments Some departments are not documenting in the electronic medical record. If you d o not see the information that you expected, contact Release of Information in state [facility] facility [employer] Information Management department at [phone] for further assistan ce in locating additional records.[facility] Allergies Comments Active Allergy Reactions Severity Noted Date STOMACH CRAMPS; BAD FOR LIVER; Aspirin SEE COMMENTS Low 03/16/2018 Chronic dry eyes, ears and nose stopped up; itching Seasonal Allergies SEE COMMENTS Low 08/28/2018 STOMACH CRAMPS; BAD FOR LIVER Acetaminophen STOMACH UPSET Low 08/28/2018 Medications End Date Status Medication Sig Dispensed Refills Start Date Active cetirizine (ZYRTEC) 10 mg Take 10 mg by 0 tablet mouth every morning. Active Carboxymethylcellulose Apply 1 drop 0 Sodium 1 % dlgl to both eyes at bedtime daily. Active midodrine (PROAMATINE) 5 Take three 30 tablet 1 mg tablet tablets by 9 mouth every 8 hours. Active phenazopyridine Take one 6 tablet 0 (PYRIDIUM) 100 mg tablet tablet by 9 mouth three times daily. Take after meals for up to 2 days. Active tamsulosin (FLOMAX) 0.4 Take one 90 capsule 3 mg capsule capsule by 9 mouth daily after breakfast. Do not crush, chew or open capsules. Take 30 minutes following the same meal each day. 09/04/2018 Discontinued lisinopril (PRINIVIL; 20 mg. 0 ZESTRIL) 20 mg tablet 09/04/2018 Discontinued furosemide (LASIX) 20 mg Take 20 mg by 0 tablet mouth every morning. 09/04/2018 Discontinued potassium chloride Take 20 mEq 0 (K-TAB) 20 mEq tablet by mouth daily. Take with a meal and a full glass of water. 09/04/2018 Discontinued spironolactone Take 25 mg by 0 (ALDACTONE) 25 mg tablet mouth twice daily. Take with food. 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); Elevated AFP; Liver mass, right lobe 08/28/2018 Office Visit Oncology Vish Lyons MD Navigation Follow Up 08/28/2018 Telephone Oncology Vish Lyons MD Navigation Assessment 08/21/2018 Telephone Oncology Vish Lyons MD 08/16/2018 Documentation Oncology Vish Lyons MD Appointment 08/01/2018 Telephone Oncology Vish Lyons MD Appointment Request 08/01/2018 Telephone Oncology from Last 3 Months Social History Date Tobacco Use Types Packs/Day Years Used Current Every Day Smoker Cigarettes 0.5 Smokeless Tobacco: Never Used Drinks/Week oz/Week Comments Alcohol Use Never Alcohol Habits Answer Date Recorded How often do you have a drink containing alcohol? Never 08/28/2018 How many drinks containing alcohol do you have on Not asked a typical day when you are drinking? How often do you have six or more drinks on one Not asked occasion? Sex Assigned at Date Recorded Not on file Industry Job Start Date Occupation Not on file Not on file Not on file Travel End Travel History Travel Start No recent travel history available. Last Filed Vital Signs Reading Time Taken Comments Vital Sign 119/63 09/04/2018 1:00 PM CDT Blood Pressure 72 09/04/2018 1:00 PM CDT Pulse 36.4 C (97.5 F) 09/04/2018 1:00 PM CDT Temperature 16 08/28/2018 3:57 PM CDT Respiratory Rate 95% 09/04/2018 1:00 PM CDT Oxygen Saturation - - Inhaled Oxygen Concentration 107.5 kg (237 lb) 08/29/2018 8:41 AM CDT Weight 182.9 cm (6') 08/29/2018 8:41 AM CDT Height 32.14 08/29/2018 8:41 AM CDT Body Mass Index Plan of Treatment Health Maintenance Due Date Last Done Comments PHYSICAL (COMPREHENSIVE) 1957 EXAM DTAP/TDAP VACCINES (1 - 1968 Tdap) COLORECTAL CANCER 2000 SCREENING SHINGLES RECOMBINANT 2000 VACCINE (1 of 2) ABDOMINAL AORTIC ANEURYSM 10/11/2015 SCREENING PNEUMONIA (PCV13/PPSV23) 10/11/2015 VACCINES (1 of 2 - PCV13) INFLUENZA VACCINE 12/19/2018 HEPATITIS C SCREENING Completed 08/30/2018 Procedures Comments Procedure Name Priority Date/Time Associated Diagnosis MAGNESIUM Routine 09/04/2018 5:03 AM CDT COMPREHENSIVE METABOLIC Routine 09/04/2018 PANEL 5:03 AM CDT CBC AND DIFF Routine 09/04/2018 5:03 AM CDT PROTIME INR (PT) Routine 09/04/2018 5:03 AM CDT MAGNESIUM Routine 09/03/2018 5:15 AM CDT COMPREHENSIVE METABOLIC Routine 09/03/2018 PANEL 5:15 AM CDT CBC AND DIFF Routine 09/03/2018 5:15 AM CDT UA REFLEX CULTURE LABEL Routine 09/02/2018 6:03 PM CDT URINALYSIS MICROSCOPIC Routine 09/02/2018 REFLEX TO CULTURE 6:03 PM CDT URINALYSIS DIPSTICK Routine 09/02/2018 REFLEX TO CULTURE 6:03 PM CDT MAGNESIUM Routine 09/02/2018 4:39 AM CDT COMPREHENSIVE METABOLIC Routine 09/02/2018 PANEL 4:39 AM CDT CBC AND DIFF Routine 09/02/2018 4:39 AM CDT PROTIME INR (PT) Routine 09/02/2018 4:39 AM CDT C DIFFICILE BY PCR Routine 09/01/2018 5:43 PM CDT MAGNESIUM Routine 09/01/2018 5:46 AM CDT COMPREHENSIVE METABOLIC Routine 09/01/2018 PANEL 5:46 AM CDT CBC AND DIFF Routine 09/01/2018 5:46 AM CDT PROTIME INR (PT) Routine 09/01/2018 5:46 AM CDT UA REFLEX CULTURE LABEL Routine 09/01/2018 12:48 AM CDT URINALYSIS MICROSCOPIC Routine 09/01/2018 REFLEX TO CULTURE 12:48 AM CDT URINALYSIS DIPSTICK Routine 09/01/2018 REFLEX TO CULTURE 12:48 AM CDT UREA NITROGEN-URINE Routine 08/31/2018 RANDOM 4:38 PM CDT SODIUM-URINE RANDOM Routine 08/31/2018 4:38 PM CDT CREATININE-URINE RANDOM Routine 08/31/2018 4:38 PM CDT PROTIME INR (PT) Routine 08/31/2018 5:18 AM CDT MAGNESIUM Routine 08/31/2018 5:18 AM CDT COMPREHENSIVE METABOLIC Routine 08/31/2018 PANEL 5:18 AM CDT CBC AND DIFF Routine 08/31/2018 5:18 AM CDT HEPATITIS C VIRAL LOAD Routine 08/30/2018 PCR QUANT 4:41 AM CDT HEPATITIS B SURFACE AG Routine 08/30/2018 4:41 AM CDT HEPATITIS B CORE AB TOT Routine 08/30/2018 (IGG+IGM) 4:41 AM CDT CEA(CARCINOEMBRYONIC AG) Routine 08/30/2018 4:41 AM CDT CA19.9 Routine 08/30/2018 4:41 AM CDT ALPHA FETO PROTEIN (AFP) Routine 08/30/2018 4:41 AM CDT PROTIME INR (PT) Routine 08/30/2018 4:41 AM CDT MAGNESIUM Routine 08/30/2018 4:41 AM CDT COMPREHENSIVE METABOLIC Routine 08/30/2018 PANEL 4:41 AM CDT CBC AND DIFF Routine 08/30/2018 4:41 AM CDT PTT (APTT) STAT 08/29/2018 11:10 PM CDT PTT (APTT) STAT 08/29/2018 3:00 PM CDT CBC STAT 08/29/2018 3:00 PM CDT NON-PET TECHNOLOGIST CYTOLOGY (BODY 08/29/2018 FLUIDS/TISSUE) 2:20 PM CDT IR ASPIRATION/DRAIN Routine 08/29/2018 11:00 AM CDT PERITONEAL FLUID TOTAL Routine 08/29/2018 PROTEIN 10:04 AM CDT PERITONEAL FLUID ALBUMIN Routine 08/29/2018 10:04 AM CDT CELL COUNT W/DIFF-FLUIDS Routine 08/29/2018 10:04 AM CDT GRAM STAIN Routine 08/29/2018 10:04 AM CDT CULTURE-WOUND/TISSUE/FLUI Routine 08/29/2018 D(AEROBIC 10:04 AM CDT ONLY)W/SENSITIVITY PROTIME INR (PT) Routine 08/29/2018 4:17 AM CDT MAGNESIUM Routine 08/29/2018 4:17 AM CDT COMPREHENSIVE METABOLIC Routine 08/29/2018 PANEL 4:17 AM CDT CBC AND DIFF Routine 08/29/2018 4:17 AM CDT UREA NITROGEN-URINE Routine 08/28/2018 RANDOM 10:47 PM CDT CREATININE-URINE RANDOM Routine 08/28/2018 10:47 PM CDT SODIUM-URINE RANDOM Routine 08/28/2018 10:47 PM CDT URINALYSIS, MICROSCOPIC Routine 08/28/2018 10:47 PM CDT URINALYSIS DIPSTICK Routine 08/28/2018 10:47 PM CDT US DOPPLER ABD PELV Routine 08/28/2018 RETROPER COMP 10:05 PM CDT US ABDOMEN COMPLETE Routine 08/28/2018 10:05 PM CDT ECG 12-LEAD Routine 08/28/2018 7:58 PM CDT BILIRUBIN, DIRECT Add on 08/28/2018 6:55 PM CDT PHOSPHORUS Add on 08/28/2018 6:55 PM CDT MAGNESIUM Add on 08/28/2018 6:55 PM CDT LACTIC ACID(LACTATE) STAT 08/28/2018 6:55 PM CDT PROTIME INR (PT) STAT 08/28/2018 6:55 PM CDT COMPREHENSIVE METABOLIC STAT 08/28/2018 PANEL 6:55 PM CDT CBC AND DIFF STAT 08/28/2018 6:55 PM CDT CULTURE-BLOOD Routine 08/28/2018 W/SENSITIVITY 6:55 PM CDT CULTURE-BLOOD Routine 08/28/2018 W/SENSITIVITY 6:50 PM CDT TELEMETRY STRIPS-SCAN 08/28/2018 12:00 AM CDT ECG-SCAN 08/28/2018 12:00 AM CDT from Last 3 Months Results * PROTIME INR (PT) (09/04/2018 5:03 AM CDT) Only the most recent of 7 results within the time period is included. Pathologist [facility] INR 1.1 0.8 - 1.2 MAIN LAB Specimen Blood Performing Organization Address City/[facility] Phone Number MA[facility] LAB [address] [place] [address] * CBC AND DIFF (09/04/2018 5:03 AM CDT) Only the most recent of 8 results within the time period is included. Pathologist [facility] White Blood 4.5 4.5 - 11.0 K/UL [facility] MAIN [facility] Cells RBC 5.18 4.4 - 5.5 M/UL [facility] MAIN [facility] Hemoglobin 16.0 13.5 - 16.5 GM/DL [facility]IN [facility] Hematocrit 46.5 40 - 50 % [facility] MCV 89.8 80 - 100 FL [facility] MCH 30.9 26 - 34 PG [facility] MCHC 34.4 32.0 - 36.0 G/DL [facility] RDW 18.3 (H) 11 - 15 % [facility] Platelet Count 105 (L) 150 - 400 K/UL [facility] MPV 9.4 7 - 11 FL [facility] Neutrophils 76 41 - 77 % [facility] Lymphocytes 9 (L) 24 - 44 % [facility] Monocytes 14 (H) 4 - 12 % [facility] Eosinophils 0 0 - 5 % [facility] Basophils 1 0 - 2 % [facility] Absolute 3.40 1.8 - 7.0 K/UL [facility] Neutrophil Count Absolute Lymph 0.40 (L) 1.0 - 4.8 K/UL [facility] Count Absolute 0.60 0 - 0.80 K/UL [facility] Monocyte Count Absolute 0.00 0 - 0.45 K/UL [facility] Eosinophil Count Absolute 0.00 0 - 0.20 K/UL [facility] Basophil Count Specimen Blood Performing Organization Address City/[facility]/Zipcode Phone Number MAIN LAB [address] [place] [address] * MAGNESIUM (09/04/2018 5:03 AM CDT) Only the most recent of 8 results within the time period is included. Magnesium 2.5 1.6 - 2.6 mg/dL [facility] MAIN [facility] Specimen Blood Performing Organization Address City/[facility]/Zipcode Phone Number [facility] MAIN [facility] [address] [place] [address] * COMPREHENSIVE METABOLIC PANEL (09/04/2018 5:03 AM CDT) Only the most recent of 8 results within the time period is included. Sodium 138 137 - 147 MMOL/L [facility]IN [facility] Potassium 4.2 3.5 - 5.1 MMOL/L [facility] Chloride 103 98 - 110 MMOL/L [facility] Glucose 96 70 - 100 MG/DL [facility] Blood Urea 29 (H) 7 - 25 MG/DL [facility] Nitrogen Creatinine 1.27 (H) 0.4 - 1.24 MG/DL [facility] Calcium 10.2 8.5 - 10.6 MG/DL [facility] Total Protein 6.5 6.0 - 8.0 G/DL [facility]IN [facility] Total Bilirubin 5.2 (H) 0.3 - 1.2 MG/DL [facility] Albumin 3.7 3.5 - 5.0 G/DL [facility]IN [facility] Alk Phosphatase 173 (H) 25 - 110 U/L [facility] AST (SGOT) 140 (H) 7 - 40 U/L [facility]IN [facility] CO2 22 21 - 30 MMOL/L [facility] ALT (SGPT) 25 7 - 56 U/L [facility] Anion Gap 13 (H) 3 - 12 [facility] MAIN [facility] eGFR Non 57 (L) >60 mL/min [facility]IN [facility] Comment: Hungarian The eGFR is not validated for use in drug dosing adjustments.Continue to use estimated creatinine clearance per dosing reference text.Please contact the Clinical Pharmacist for questions. eGFR >60 >60 mL/min [facility] MAIN [facility] Hungarian Comment: The eGFR is not validated for use in drug dosing adjustments.Continue to use estimated creatinine clearance per dosing reference text.Please contact the Clinical Pharmacist for questions. Specimen Blood Performing Organization Address City/[facility]/Zipcode Phone Number MAIN LAB [address] [place] [address] * UA REFLEX CULTURE LABEL (09/02/2018 6:03 PM CDT) Only the most recent of 2 results within the time period is included. UA Reflex LAB LABEL [facility] MAIN [facility] Culture Specimen Urine Performing Organization Address City/[facility]/Zipcode Phone Number MAIN LAB [address] [place] [phone] * URINALYSIS MICROSCOPIC REFLEX TO CULTURE (09/02/2018 6:03 PM CDT) Only the most recent of 2 results within the time period is included. WBCs,UA 2-10 0 - 2 /HPF [facility] MAIN [facility] RBCs,UA 0-2 0 - 3 /HPF [facility] MAIN [facility] Comment,UA Criteria for reflex to culture [facility] MAIN [facility] are WBC>10, Positive Nitrite, and/or >=+1 leukocytes. If quantity is not sufficient, an addendum will follow. MucousUA TRACE [facility] MAIN [facility] Hyaline Cast 2-5 [facility] MAIN [facility] Specimen Urine Performing Organization Address [facility] Phone Number [facility] [address] [place] [place] [phone] * URINALYSIS DIPSTICK REFLEX TO CULTURE (09/02/2018 6:03 PM CDT) Only the most recent of 2 results within the time period is included. Color,UA NGUYEN [facility] MAIN [facility] Turbidity,UA CLEAR CLEAR-CLEAR [facility] MAIN [facility] Specific 1.013 1.003 - 1.035 [facility] MAIN [facility] Brutus-Urine pH,UA 5.0 5.0 - 8.0 [facility] MAIN [facility] Protein,UA NEG NEG-NEG [facility] Glucose,UA NEG NEG-NEG [facility] Ketones,UA NEG NEG-NEG [facility] Bilirubin,UA NEG NEG-NEG [facility] Blood,UA NEG NEG-NEG [facility] Urobilinogen,UA NORMAL NORM-NORMAL [facility] Nitrite,UA NEG NEG-NEG [facility] Leukocytes,UA NEG NEG-NEG [facility] Urine Ascorbic NEG NEG-NEG [facility] MAIN [facility] Acid, UA Specimen Urine Performing Organization Address [facility] Phone Number MAIN LAB [address] [place] [address] * C DIFFICILE BY PCR (09/01/2018 5:43 PM CDT) C. difficile NEGATIVE-wait 7 days to repeat MAIN LAB Toxin B PCR test Specimen Feces Performing Organization Address City/[facility] Phone Number MAIN LAB [address] [place] [address] * UREA NITROGEN-URINE RANDOM (08/31/2018 4:38 PM CDT) Only the most recent of 2 results within the time period is included. Urea Nitrogen 507 MG/DL MAIN LAB Specimen Urine - Urine Performing Organization Address [facility] Phone Number MAIN LAB [address] [place] [address] * SODIUM-URINE RANDOM (08/31/2018 4:38 PM CDT) Only the most recent of 2 results within the time period is included. Sodium, Random 15 MMOL/L MAIN LAB Specimen Urine - Urine Performing Organization [facility] Phone Number MAIN LAB [address] [place] [address] * CREATININE-URINE RANDOM (08/31/2018 4:38 PM CDT) Only the most recent of 2 results within the time period is included. Creatinine, 255 MG/DL MAIN LAB Random Specimen Urine - Urine Performing Organization Address [facility] Phone Number MAIN LAB [address] [place] [address] * HEPATITIS B CORE AB TOT (IGG+IGM) (08/30/2018 4:41 AM CDT) Anti HBc Total NEG MAIN LAB Specimen Blood Performing Organization [facility] Phone Number [facility] [address] [place] [address] * HEPATITIS C VIRAL LOAD PCR QUANT (08/30/2018 4:41 AM CDT) Hepatitis C PCR HCV RNA Not Detected, <12 <12 IU/ML [facility] Quantitative IU/mL Comment: The test method detects HCV viral load using the Cortes RealTime assay. Please correlate results with the clinical status of the patient. Log 10 HCV <1.08 <1.08 IU/mL MAIN LAB Specimen Blood Performing Organization Address [facility] Phone Number MAIN LAB [address] [place] [address] * HEPATITIS B SURFACE AG (08/30/2018 4:41 AM CDT) HBsAg NEG NEG-NEG [facility] MAIN [facility] Specimen Blood Performing Organization Address [facility]/Zipcode Phone Number MAIN LAB [address] [place] [address] * CA19.9 (08/30/2018 4:41 AM CDT) CA 19-9 51 (H) <35 U/ml MAIN LAB Specimen Blood Performing Organization Address [facility] Phone Number MAIN LAB [address] [place] [address] * ALPHA FETO PROTEIN (AFP) (08/30/2018 4:41 AM CDT) Alpha Feto 31,677.0 (H) 0.0 - 15.0 NG/ML MAIN LAB Protein Specimen Blood Performing Organization Address [facility] Phone Number MAIN LAB [address] [place] [address] * CEA(CARCINOEMBRYONIC AG) (08/30/2018 4:41 AM CDT) CEA 4.7 (H) <3.0 NG/ML MAIN LAB Specimen Blood Performing Organization Address [facility] Phone Number MAIN LAB [address] [place] [address] * PTT (APTT) (08/29/2018 11:10 PM CDT) Only the most recent of 2 results within the time period is included. Pathologist [facility] APTT >200.0 (HH) 24.0 - 36.5 SEC [facility] Comment: Critical Result APTT:Called to Sandy HAWTHORNE RN at: 23:59:33 by: HAILEE Read back by: Sandy HAWTHORNE RN Specimen Blood Performing Organization Address [facility]/Zipcode Phone Number MAIN LAB [address] [place] [address] * CBC (08/29/2018 3:00 PM CDT) Pathologist [facility] White Blood 4.3 (L) 4.5 - 11.0 K/UL MAIN LAB Cells RBC 5.00 4.4 - 5.5 M/UL [facility] Hemoglobin 15.4 13.5 - 16.5 GM/DL [facility] Hematocrit 45.8 40 - 50 % [facility] MAIN LAB MCV 91.5 80 - 100 FL [facility] MCH 30.7 26 - 34 PG [facility] MCHC 33.6 32.0 - 36.0 G/DL [facility] RDW 18.9 (H) 11 - 15 % [facility] Platelet Count 128 (L) 150 - 400 K/UL [facility] MPV 11.0 7 - 11 FL [facility] Specimen Blood Performing Organization Address City/State/Zipcode Phone Number [facility] [address] [place] [address] * NON-PET TECHNOLOGIST CYTOLOGY (BODY FLUIDS/TISSUE) (08/29/2018 2:20 PM CDT) Cytology [facility] [email or web address] Department of Pathology and Laboratory Medicine [address] [place] [address] Surgical Pathology Office:[phone] :[phone] CYTOLOGY REPORT NAME: RUY SAM CYTOLOGY #: [id number] MR #: [id number] ALT ID #: [id number] #: [id number] LOCATION: [facility] DATE OF PROCEDURE: 08/29/2018 AGE: 67 SEX: M DATE RECEIVED: 08/30/2018 : 1950TIME RECEIVED:14:20 PHYSICIAN: VINNIE QUINONES MD DATE OF REPORT: 09/02/2018 COPY TO: QUENTIN ABERNATHY DATE OF PRINTIN09/02/2018 Material Received: A: Abdominal Fluid History: 67-year-old male with clinical history of 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 Abdominal Fluid: Chronic inflammation. Negative for malignant cells. Attestation: By this signature, I attest that I have personally formulated the final interpretation expressed in this report and that the above diagnosis is based upon my examination of the slides and/or other material indicated in this report. +++Electronically Signed Out By+++ melania/08/31/2018 Interpreted by: VAZQUEZ Hyatt MD Resident Specimen Performing Organization Address City/State/Zipcode Phone Number MAIN LAB [address] [place] [address] * IR ASPIRATION/DRAIN (08/29/2018 11:00 AM CDT) Specimen Impressions Performed At IMPRESSION: Successful ultrasound guided paracentesis.11,000 mL of fluid was [facility] RAD RESULTS removed. Approved by DANN Robles on 08/29/2018 3:04 PM By my electronic signature, I attest that I have personally reviewed the images for this examination and formulated the interpretations and opinions expressed in this report Finalized by Darius Weaver M.D. on 08/29/2018 3:21 PM. Dictated by DANN Robles on 08/29/2018 3:04 PM. Narrative Performed At Ultrasound-guided paracentesis [facility] RAD RESULTS CLINICAL INDICATION: Ascites MEDICATIONS: 10 mL subcutaneous Lidocaine 2% CUSTOM APPLICATOR:DANN Robles ATTENDING: Darius Weaver M.D. TECHNIQUE: Transverse real time images were obtained through the abdomen. The risks and benefits of this procedure were discussed and informed written consent was obtained prior to performing the procedure. The abdomen was then prepped and draped in usual sterile fashion.Limited ultrasound of the abdomen was performed.Under ultrasound guidance, a 5 [place] centesis needle was advanced into the peritoneal fluid collection and catheter advanced into the collection over the needle, and needle was removed. The catheter was connected to Vacutainer bottles and 11,000 mL fluid was removed. There were no immediate complications of the procedure. No significant blood loss. Patient tolerated procedure well. FINDINGS: Large volume free peritoneal fluid demonstrated on ultrasound. Procedure Note Interface, Radiant Results - 08/29/2018 3:24 PM CDT Ultrasound-guided paracentesis CLINICAL INDICATION: Ascites MEDICATIONS: 10 mL subcutaneous Lidocaine 2% CUSTOM APPLICATOR: DANN Robles ATTENDING: Darius Weaver M.D. TECHNIQUE: Transverse real time images were obtained through the abdomen. The risks and benefits of this procedure were discussed and informed written consent was obtained prior to performing the procedure. The abdomen was then prepped and draped in usual sterile fashion. Limited ultrasound of the abdomen was performed. Under ultrasound guidance, a 5 [place] centesis needle was advanced into the peritoneal fluid collection and catheter advanced into the collection over the needle, and needle was removed. The catheter was connected to Vacutainer bottles and 11,000 mL fluid was removed. There were no immediate complications of the procedure. No significant blood loss. Patient tolerated procedure well. FINDINGS: Large volume free peritoneal fluid demonstrated on ultrasound. IMPRESSION IMPRESSION: Successful ultrasound guided paracentesis. 11,000 mL of fluid was removed. Approved by DANN Robles on 08/29/2018 3:04 PM By my electronic signature, I attest that I have personally reviewed the images for this examination and formulated the interpretations and opinions expressed in this report Finalized by Darius Weaver M.D. on 08/29/2018 3:21 PM. Dictated by DANN Robles on 08/29/2018 3:04 PM. Performing Organization Address [facility] Phone Number RAD RESULTS * PERITONEAL FLUID TOTAL PROTEIN (08/29/2018 10:04 AM CDT) Peritoneal <1.5 g/dL MAIN LAB Fluid Total Comment: Protein Ascites fluidtotal protein >1g/dL favors secondary bacterial peritonitis over spontaneous bacterial peritonitis Specimen Peritoneal Fluid Performing Organization Address [facility] Phone Number MAIN LAB [address] [place] [address] * PERITONEAL FLUID ALBUMIN (08/29/2018 10:04 AM CDT) Peritoneal <1.5 g/dL MAIN LAB Fluid Albumin Comment: Serum to ascites albumin gradient (SAAG) >1.1 g/d is seen in portal hypertension. SAAG <1.1 g/dL is seen in cancer and infections Specimen Peritoneal Fluid Performing Organization Address [facility] Phone Number MAIN LAB [address] [place] [address] * GRAM STAIN (08/29/2018 10:04 AM CDT) Battery Name GRAM STAIN [facility] MAIN LAB Specimen PERITONEAL FLUID MAIN LAB Description Special NONE [facility] MAIN LAB Requests Gram Stain RARE MAIN LAB NEUTROPHILS FEW RBC'S NO ORGANISMS SEEN Report Status FINAL MAIN LAB 08/29/2018 Specimen Peritoneal Fluid Performing Organization Address [facility]/Zipcode Phone Number MAIN LAB [address] [place] [address] * CULTURE-WOUND/TISSUE/FLUID(AEROBIC ONLY)W/SENSITIVITY (08/29/2018 10:04 AM CDT) Battery Name ROUTINE CULTURE [facility] MAIN LAB Specimen PERITONEAL FLUID [facility] MAIN LAB Description Special NONE [facility] MAIN [facility] Requests Direct Gram RARE [facility] MAIN LAB Stain NEUTROPHILS FEW RBC'S NO ORGANISMS SEEN Culture NO GROWTH 5 DAYS [facility] MAIN LAB Report Status FINAL [facility] MAIN LAB 09/03/2018 Specimen Peritoneal Fluid Performing Organization Address [facility] Phone Number [facility] [address] [place] [address] * CELL COUNT W/DIFF-FLUIDS (08/29/2018 10:04 AM CDT) White Blood 540 /UL [facility] MAIN LAB Cells,Fluid Red Blood 2,700 /UL [facility] MAIN LAB Cells,Fluid Segmented 3 % [facility] MAIN LAB Neutrophils, Fluid Lymphocytes,Flu 50 % [facility] id Monocyte/Histo, 41 % [facility] Fluid Eosinophils, 6 % [facility] Fluid Fluid Source PERITONEAL FLUID [facility] Pathology CHRONIC INFLAMMATION [facility] Interpretation, HEMORRHAGIC FLUID Fluid Pathologist INTERPRETED BY ALEXIS FREEMAN M.D. [facility] Signature By the PATH SIGNATURE ABOVE, I attest that I have personally formulated the final interpretation expressed in this report and that the above diagnosis is based upon my examination of the slides and/or other material indicated in this report. Specimen Fluid - Peritoneal Fluid Performing Organization Address [facility] Phone Number [facility] [address] [place] [address] * URINALYSIS, MICROSCOPIC (08/28/2018 10:47 PM CDT) WBCs,UA 0-2 0 - 2 /HPF [facility] RBCs,UA 0-2 0 - 3 /HPF [facility] MucousUA TRACE [facility] Squamous 0-2 0 - 5 [facility] Epithelial Cells Hyaline Cast PACKED [facility] Specimen Urine - Urine Performing Organization Address [facility]/Zipcode Phone Number MAIN LAB [address] [place] [address] * URINALYSIS DIPSTICK (08/28/2018 10:47 PM CDT) Color,UA NGUYEN [facility] Turbidity,UA CLEAR CLEAR-CLEAR [facility] Specific 1.015 1.003 - 1.035 [facility] Brutus-Urine pH,UA 5.0 5.0 - 8.0 [facility] Protein,UA NEG NEG-NEG [facility] Glucose,UA NEG NEG-NEG [facility] Ketones,UA NEG NEG-NEG [facility] Bilirubin,UA NEG NEG-NEG [facility] Blood,UA NEG NEG-NEG [facility] Urobilinogen,UA INCREASED (A) NORM-NORMAL [facility] Nitrite,UA NEG NEG-NEG [facility] Leukocytes,UA NEG NEG-NEG [facility] Urine Ascorbic NEG NEG-NEG [facility] Acid, UA Specimen Urine - Urine Performing Organization Address City/State/Zipcode Phone Number [facility] [address] [place] [address] * US DOPPLER ABD PELV RETROPER COMP (08/28/2018 10:05 PM CDT) Specimen Impressions Performed At 1.Acute-appearing thrombus throughout the portal veins. The liver is [facility] cirrhotic with marked parenchymal heterogeneity. CT or MRI of the abdomen with liver mass protocol is recommended to evaluate for hepatocellular carcinoma. 2.Cholelithiasis and sludge in a nondistended gallbladder. Mild gallbladder wall thickening likely secondary to chronic liver disease. 3.Large volume abdominopelvic ascites and bilateral pleural effusions. Critical findings discussed with Dr. Abernathy by Dr. Gunn via telephone at 08/29/2018 9:29 AM in correlation with Leidy Marrero M.D.. Approved by Jayden Gunn D.O. on 08/29/2018 9:29 AM By my electronic signature, I attest that I have personally reviewed the images for this examination and formulated the interpretations and opinions expressed in this report Finalized by Leidy Marrero M.D. on 08/29/2018 10:55 AM. Dictated by Jayden Gunn D.O. on 08/29/2018 8:05 AM. Narrative Performed At Abdominal Ultrasound with Doppler [facility] Clinical Indication: Male, 67 years. Elevated creatinine. Hepatitis C. Cirrhosis. Ascites. Hyperbilirubinemia. Technique: Multiple grayscale sonographic images were obtained through the abdomen with additional color and spectral Doppler acquisitions. Comparison: CT June 12, 2018 Findings: Liver and Biliary System: The liver demonstrates lobular contour and diffusely markedly heterogeneous echotexture though is mildly enlarged measuring 19.5 cm. No biliary ductal dilation. The common bile duct measures 0.5 cm at the mayra hepatis. The gallbladder is nondilated and contains stones and sludge. The gallbladder wall is thickened measuring up to 0.7 cm. Main portal vein: The main portal vein is filled with echogenic material and demonstrates little to no flow compatible with thrombosis Right right portal vein: No flow demonstrated, compatible with thrombosis Left portal vein: Limited to no flow compatible with near complete or complete thrombosis Splenic vein: Normal direction of flow at midline and splenic hilum. IVC: Patent, normal pulsatility. Hepatic veins: Patent, normal pulsatility. Hepatic arteries: Normal systolic acceleration; PHA resistive index ranges 0.65-0.69. Pancreas: Visualized portions of the pancreas are unremarkable. Spleen: Normal in size. Aorta: Poorly visualized. Visualized portions are normal in caliber. Kidneys: The right kidney measures 10.1 cm in length. The left kidney measures 10.2 cm in length. No hydronephrosis. Peritoneal Space: The incompletely distended urinary bladder is unremarkable. Large volume abdominopelvic ascites. Findings of bilateral pleural effusions. Procedure Note Interface, Radiant Results - 08/29/2018 10:58 AM CDT Abdominal Ultrasound with Doppler Clinical Indication: Male, 67 years. Elevated creatinine. Hepatitis C. Cirrhosis. Ascites. Hyperbilirubinemia. Technique: Multiple grayscale sonographic images were obtained through the abdomen with additional color and spectral Doppler acquisitions. Comparison: CT June 12, 2018 Findings: Liver and Biliary System: The liver demonstrates lobular contour and diffusely markedly heterogeneous echotexture though is mildly enlarged measuring 19.5 cm. No biliary ductal dilation. The common bile duct measures 0.5 cm at the mayra hepatis. The gallbladder is nondilated and contains stones and sludge. The gallbladder wall is thickened measuring up to 0.7 cm. Main portal vein: The main portal vein is filled with echogenic material and demonstrates little to no flow compatible with thrombosis Right right portal vein: No flow demonstrated, compatible with thrombosis Left portal vein: Limited to no flow compatible with near complete or complete thrombosis Splenic vein: Normal direction of flow at midline and splenic hilum. IVC: Patent, normal pulsatility. Hepatic veins: Patent, normal pulsatility. Hepatic arteries: Normal systolic acceleration; PHA resistive index ranges 0.65-0.69. Pancreas: Visualized portions of the pancreas are unremarkable. Spleen: Normal in size. Aorta: Poorly visualized. Visualized portions are normal in caliber. Kidneys: The right kidney measures 10.1 cm in length. The left kidney measures 10.2 cm in length. No hydronephrosis. Peritoneal Space: The incompletely distended urinary bladder is unremarkable. Large volume abdominopelvic ascites. Findings of bilateral pleural effusions. IMPRESSION 1. Acute-appearing thrombus throughout the portal veins. The liver is cirrhotic with marked parenchymal heterogeneity. CT or MRI of the abdomen with liver mass protocol is recommended to evaluate for hepatocellular carcinoma. 2. Cholelithiasis and sludge in a nondistended gallbladder. Mild gallbladder wall thickening likely secondary to chronic liver disease. 3. Large volume abdominopelvic ascites and bilateral pleural effusions. Critical findings discussed with Dr. Abernathy by Dr. Gunn via telephone at 08/29/2018 9:29 AM in correlation with Leidy Marrero M.D.. Approved by Jayden Gunn D.O. on 08/29/2018 9:29 AM By my electronic signature, I attest that I have personally reviewed the images for this examination and formulated the interpretations and opinions expressed in this report Finalized by Leidy Marrero M.D. on 08/29/2018 10:55 AM. Dictated by Jayden Gunn D.O. on 08/29/2018 8:05 AM. Performing Organization Address City/State/Zipcode Phone Number [facility] * US ABDOMEN COMPLETE (08/28/2018 10:05 PM CDT) Specimen Impressions Performed At 1.Acute-appearing thrombus throughout the portal veins. The liver is [facility] cirrhotic with marked parenchymal heterogeneity. CT or MRI of the abdomen with liver mass protocol is recommended to evaluate for hepatocellular carcinoma. 2.Cholelithiasis and sludge in a nondistended gallbladder. Mild gallbladder wall thickening likely secondary to chronic liver disease. 3.Large volume abdominopelvic ascites and bilateral pleural effusions. Critical findings discussed with Dr. Abernathy by Dr. Gunn via telephone at 08/29/2018 9:29 AM in correlation with Leidy Marrero M.D.. Approved by Jayden Gunn D.O. on 08/29/2018 9:29 AM By my electronic signature, I attest that I have personally reviewed the images for this examination and formulated the interpretations and opinions expressed in this report Finalized by Leidy Marrero M.D. on 08/29/2018 10:55 AM. Dictated by Jayden Gunn D.O. on 08/29/2018 8:05 AM. Narrative Performed At Abdominal Ultrasound with Doppler [facility] Clinical Indication: Male, 67 years. Elevated creatinine. Hepatitis C. Cirrhosis. Ascites. Hyperbilirubinemia. Technique: Multiple grayscale sonographic images were obtained through the abdomen with additional color and spectral Doppler acquisitions. Comparison: CT June 12, 2018 Findings: Liver and Biliary System: The liver demonstrates lobular contour and diffusely markedly heterogeneous echotexture though is mildly enlarged measuring 19.5 cm. No biliary ductal dilation. The common bile duct measures 0.5 cm at the mayra hepatis. The gallbladder is nondilated and contains stones and sludge. The gallbladder wall is thickened measuring up to 0.7 cm. Main portal vein: The main portal vein is filled with echogenic material and demonstrates little to no flow compatible with thrombosis Right right portal vein: No flow demonstrated, compatible with thrombosis Left portal vein: Limited to no flow compatible with near complete or complete thrombosis Splenic vein: Normal direction of flow at midline and splenic hilum. IVC: Patent, normal pulsatility. Hepatic veins: Patent, normal pulsatility. Hepatic arteries: Normal systolic acceleration; PHA resistive index ranges 0.65-0.69. Pancreas: Visualized portions of the pancreas are unremarkable. Spleen: Normal in size. Aorta: Poorly visualized. Visualized portions are normal in caliber. Kidneys: The right kidney measures 10.1 cm in length. The left kidney measures 10.2 cm in length. No hydronephrosis. Peritoneal Space: The incompletely distended urinary bladder is unremarkable. Large volume abdominopelvic ascites. Findings of bilateral pleural effusions. Procedure Note Interface, Radiant Results - 08/29/2018 10:58 AM CDT Abdominal Ultrasound with Doppler Clinical Indication: Male, 67 years. Elevated creatinine. Hepatitis C. Cirrhosis. Ascites. Hyperbilirubinemia. Technique: Multiple grayscale sonographic images were obtained through the abdomen with additional color and spectral Doppler acquisitions. Comparison: CT June 12, 2018 Findings: Liver and Biliary System: The liver demonstrates lobular contour and diffusely markedly heterogeneous echotexture though is mildly enlarged measuring 19.5 cm. No biliary ductal dilation. The common bile duct measures 0.5 cm at the mayra hepatis. The gallbladder is nondilated and contains stones and sludge. The gallbladder wall is thickened measuring up to 0.7 cm. Main portal vein: The main portal vein is filled with echogenic material and demonstrates little to no flow compatible with thrombosis Right right portal vein: No flow demonstrated, compatible with thrombosis Left portal vein: Limited to no flow compatible with near complete or complete thrombosis Splenic vein: Normal direction of flow at midline and splenic hilum. IVC: Patent, normal pulsatility. Hepatic veins: Patent, normal pulsatility. Hepatic arteries: Normal systolic acceleration; PHA resistive index ranges 0.65-0.69. Pancreas: Visualized portions of the pancreas are unremarkable. Spleen: Normal in size. Aorta: Poorly visualized. Visualized portions are normal in caliber. Kidneys: The right kidney measures 10.1 cm in length. The left kidney measures 10.2 cm in length. No hydronephrosis. Peritoneal Space: The incompletely distended urinary bladder is unremarkable. Large volume abdominopelvic ascites. Findings of bilateral pleural effusions. IMPRESSION 1. Acute-appearing thrombus throughout the portal veins. The liver is cirrhotic with marked parenchymal heterogeneity. CT or MRI of the abdomen with liver mass protocol is recommended to evaluate for hepatocellular carcinoma. 2. Cholelithiasis and sludge in a nondistended gallbladder. Mild gallbladder wall thickening likely secondary to chronic liver disease. 3. Large volume abdominopelvic ascites and bilateral pleural effusions. Critical findings discussed with Dr. Abernathy by Dr. Gunn via telephone at 08/29/2018 9:29 AM in correlation with Leidy Marrero M.D.. Approved by Jayden Gunn D.O. on 08/29/2018 9:29 AM By my electronic signature, I attest that I have personally reviewed the images for this examination and formulated the interpretations and opinions expressed in this report Finalized by Leidy Marrero M.D. on 08/29/2018 10:55 AM. Dictated by Jayden Gunn D.O. on 08/29/2018 8:05 AM. Performing Organization Address City/State/Zipcode Phone Number [facility] * CULTURE-BLOOD W/SENSITIVITY (08/28/2018 6:55 PM CDT) Only the most recent of 2 results within the time period is included. Battery Name BLOOD CULTURE [facility] Specimen BLOOD [facility] Description LEFT FA Special NONE [facility] Requests Culture NO GROWTH 5 DAYS [facility] Report Status FINAL [facility] 09/04/2018 Specimen Blood Performing Organization Address City/[facility]/Zipcode Phone Number MAIN LAB [address] [place] [address] * PHOSPHORUS (08/28/2018 6:55 PM CDT) Phosphorus 4.0Comment: NOTE NEW REFERENCE 2.0 - 4.5 MG/DL [facility] RANGES Specimen Performing Organization Address [facility] Phone Number [facility] LAB [address] [place] [address] * LACTIC ACID(LACTATE) (08/28/2018 6:55 PM CDT) Lactic Acid 2.0 0.5 - 2.0 MMOL/L [facility] Specimen Blood Performing Organization Address [facility] Phone Number [facility] LAB [address] [place] [address] * BILIRUBIN, DIRECT (08/28/2018 6:55 PM CDT) Bilirubin, 0.7 (H)Comment: SLT HEMOLYSIS <0.4 MG/DL [facility] Direct Specimen Performing Organization Address [facility] Phone Number [facility] [address] [place] [address] * TELEMETRY STRIPS-SCAN (08/28/2018 12:00 AM CDT) Narrative Performed At Ordered by an unspecified provider. * ECG-SCAN (08/28/2018 12:00 AM CDT) Narrative Performed At Ordered by an unspecified provider. 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 08/28/2018 7:52 PM Full Code 08/28/2018 6:37 PM Provider has discussed Code Status No, more discussion w/Patient or Family? needed
--- OUTSIDE RECORDS SUMMARY | 2018-09-29 08:50 | XMS REPORT | Encounter Summary ---
Author Author [facility] Organization [facility] Address Unknown Phone Unavailable Care Team Providers Care Manager User Interface Name Role Phone Mary Ellen Alvarez MD Unavailable Mary Ellen Alvarez MD PCP Reason for Visit * Auth/Cert Referred By Contact Referred To Contact Status Reason Specialty Diagnoses / Procedures Diagnoses Hypotension DEHYDRATION LOW BLOOD PRESSURE Encounter Details Care Team Description Date Type Department Vinnie Quinones MD [address] [facility] [address] [place] [address] [phone] OEbonie Ortiz MD [address] [facility] [place] [address] [phone] Austen Samuels MD [address] [facility] [address] [place] [address] [phone] Hypotension 08/28/[address] [facility] 09/04/2018 [address] [place] [address] Social History Date Tobacco Use Types Packs/Day [...] Travel Start No recent travel history available. documented as of this encounter Last Filed Vital Signs Reading Time Taken Comments Vital Sign 119/63 09/04/2018 1:00 PM CDT Blood Pressure 72 09/04/2018 1:00 PM CDT Pulse 36.4 C (97.5 F) 09/04/2018 1:00 PM CDT Temperature - - Respiratory Rate 95% 09/04/2018 1:00 PM CDT Oxygen Saturation - - Inhaled Oxygen Concentration 107.5 kg (237 lb) 08/29/2018 8:41 AM CDT Weight 182.9 cm (6') 08/29/2018 8:41 AM CDT Height 32.14 08/29/2018 8:41 AM CDT Body Mass Index documented in this encounter Functional Status Date of Assessment Functional Status Response 08/29/2018 Does the patient have a hearing impairment: No 08/28/2018 Does the patient have a visual impairment: Yes 08/28/2018 Does the patient have impaired ambulation: Yes - use of cane......sob 08/28/2018 Does the patient have an activity of daily living Yes - no room to eat; (ADL) impairment: very bloated; wants all water out of him 08/28/2018 Does the patient have an instrumental activity of No daily living (IADL) impairment: Date of Assessment Cognitive Status Response 08/28/2018 Does the patient have a cognitive impairment: Yes - seems a little disoriented; "frazzled" documented as of this encounter Discharge Summaries * Lillian Paz MD - 09/04/2018 3:43 PM CDT Physician Discharge Summary Name: Liudmila Sam Date Of : 1950 Age: 67 years Admit date: 08/28/2018 Discharge date: 09/04/2018 Attending Physician: Dr. Samuels Service: Oncology Physician Summary completed by: Lillian Paz MD Reason for hospitalization: Hypotension, dehydration Significant PMH: Medical History: Diagnosis Date Arthritis Cancer of skin Hearing reduced Hypertension Liver cancer (HCC) Lymphoma (HCC) Vision decreased Allergies: Aspirin; Seasonal allergies; and Tylenol [acetaminophen] Admission Physical Exam notable for: Admission Lab/Radiology studies notable for: Brief Hospital Course: The patient was admitted and the following issues were a ddressed during this hospitalization: (with pertinent details). Mr. 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 Found to have pre renal FAINA 2/2 to intravascular volume depletion. 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 He underwent diagnostic and therapeutic para on 08/29 with reportedly 11 liters taken off. Fluid SAAG sugges tive of Port HTN; no evidence of SBP; cytology without evidence of malignant eliot ls. He received albumin x2. He was started on midodrine with improvement in bloo d pressures. His FAINA resolved with these interventions. Of note, he developed dysuria while he was inpatient thought likely secondary to trauma from straight cath. Urology was consulted and recommended pyridium and t amsulosin which were added to his medication regimen. He was discharged once his FAINA and hypotension resolved with plan for follow up with his local oncologist Dr. Mary Ellen Alvarez who will arrange for hospice care and palliation of his symptoms. Condition at Discharge: Stable Discharge Diagnoses: Hospital Problems Resolved Problems RESOLVED: Hypotension Surgical Procedures: As noted in hospital course Significant Diagnostic Studies and Procedures: noted in brief hospital course Consults: Hepatology Patient Disposition: Home Patient instructions/medications: Activity as Tolerated It is important to keep increasing your activity level after you leave the hosp ital. Moving around can help prevent blood clots, lung infection (pneumonia) an d other problems. Gradually increasing the number of times you are up moving ar ound will help you return to your normal activity level more quickly. Continue to increase the number of times you are up to the chair and walking daily to ret urn to your normal activity level. Begin to work toward your normal activity lev el at discharge Report These Signs and Symptoms Please contact your doctor if you have any of the following symptoms: temperatu re higher than 100 degrees F, uncontrolled pain, persistent nausea and/or vomiti ng, difficulty breathing, chest pain, severe abdominal pain, headache, unable to urinate, unable to have bowel movement or drainage with a foul odor Questions About Your Stay For questions or concerns regarding your hospital stay, call [phone]. Discharging attending physician: AUSTEN SAMUELS [[id number]] Low Sodium Diet You will need to monitor the amount of sodium in your diet. Do not eat more josue n 2g (grams) or 2000mg (milligrams) per day. If you have questions regarding your diet at home, you may contact a dietitian a t . Current Discharge Medication List START taking these medications Details midodrine (PROAMATINE) 5 mg tablet Take three tablets by mouth every 8 hours. Qty: 30 tablet, Refills: 1 PRESCRIPTION TYPE: Normal phenazopyridine (PYRIDIUM) 100 mg tablet Take one tablet by mouth three times da kathryn. Take after meals for up to 2 days. Qty: 6 tablet, Refills: 0 PRESCRIPTION TYPE: Normal tamsulosin (FLOMAX) 0.4 mg capsule Take one capsule by mouth daily after breakfa st. Do not crush, chew or open capsules. Take 30 minutes following the same meal each day. Qty: 90 capsule, Refills: 3 PRESCRIPTION TYPE: Normal CONTINUE these medications which have NOT CHANGED Details Carboxymethylcellulose Sodium 1 % dlgl Apply 1 drop to both eyes at bedtime edmond y. PRESCRIPTION TYPE: Historical Med cetirizine (ZYRTEC) 10 mg tablet Take 10 mg by mouth every morning. PRESCRIPTION TYPE: Historical Med The following medications were removed from your list. This list includes medic ations discontinued this stay and those removed from your prior med list in our system furosemide (LASIX) 20 mg tablet lisinopril (PRINIVIL; ZESTRIL) 20 mg tablet potassium chloride (K-TAB) 20 mEq tablet spironolactone (ALDACTONE) 25 mg tablet Scheduled appointments: Follow up with your oncologist Dr. Alvarez Pending items needing follow up: None Signed: Lillian Paz MD 09/05/2018 cc: Primary Care Physician: Mary Ellen Alvarez Verified Referring physicians: Vish Lyons MD Additional provider(s): documented in this encounter Discharge Instructions * Patient Instructions* Krystal Tobar RN - 08/29/2018 8:19 AM CDT INTERVENTIONAL RADIOLOGY DISCHARGE INSTRUCTIONS PARACENTESIS A paracentesis is the removal of an abnormal buildup of fluid in your abdomina l cavity. This fluid buildup is called ascites and may be caused by conditions such as liver disease, heart failure, or cancer.During this procedure, a needle is inserted into your abdomen to drain the fluid. The fluid may then be sent to the lab for testing if medically indicated. Removal of the fluid may also r elieve belly pressure and shortness of breath caused by the ascites. POST-PROCEDURE ACTIVITY: A responsible adult must drive you home. If you receive sedation, you yusuf uld not drive or operate heavy machinery or do anything that requires concentrat ion for at least 24 hours after the procedure. It is recommended that a responsible adult be with you until morning. Rest today; you may resume normal activity tomorrow. POST-PROCEDURE SITE CARE: Keep the bandage dry. You may remove it after 24 hours. A dry gauze bandage may be reapplied as necessary to protect your clothing as the site may sometimes leak for several days after the procedure. You may shower in 24 hours, after the bandage is removed. Do not submerge the site underwater for 1 week or until fully healed (no tub bath, swimming/hot tub, etc.) Be sure your hands are clean when touching near the site. Do not use ointments, creams or powders on the puncture site. DIET/MEDICATIONS: You may resume your previous diet after the procedure. If you receive sedation or narcotic pain medications, avoid any foods or beve rages containing alcohol for at least 24 hours after the procedure. Please see the Medication Reconciliation sheet for instructions on resuming y our home medications. CALL THE DOCTOR IF: Bright red blood has soaked the bandage. You have severe abdominal pain unrelieved by pain medications. Some sorenes s is to be expected. You have blood in your urine. You have signs of infection: ? Chills, fever greater than 101F. ? Increased redness, warmth or swelling at the puncture site. ? Pus draining from the puncture site. For any of the above symptoms or for problems or concerns related to the procedu re, call [phone] for Tuesday-Tuesday 7-5. After-hours and weekends, ple ase call [phone] and ask for the Interventional Machinist Supervisor Outside tania milton * Appointments* Lillian Paz MD - 09/04/2018 2:48 PM CDT Follow up with your oncologist Dr. Alvarez documented in this encounter Medications at Time of Discharge Start Date End Date Medication Sig Dispensed Refills Carboxymethylcellulose Apply 1 drop 0 Sodium 1 % dlgl to both eyes at bedtime daily. cetirizine (ZYRTEC) 10 mg Take 10 mg by 0 tablet mouth every morning. 09/04/2018 midodrine (PROAMATINE) 5 Take three 30 tablet 1 mg tablet tablets by mouth every 8 hours. 09/04/2018 phenazopyridine Take one 6 tablet 0 (PYRIDIUM) 100 mg tablet tablet by mouth three times daily. Take after meals for up to 2 days. 09/04/2018 tamsulosin (FLOMAX) 0.4 Take one 90 capsule 3 mg capsule capsule by mouth daily after breakfast. Do not crush, chew or open capsules. Take 30 minutes following the same meal each day. documented as of this encounter Progress Notes * Jazmin Buck RN - 09/04/2018 3:41 PM CDT Liudmila Sam discharged on 09/04/2018. . Discharge instructions reviewed with patient. Valuables returned: Personal Items / Valuables: (glasses, dentures are in, T shirt). Home medications: . Functional assessment at discharge complete: Yes . Discharge instructions reviewed with patient and patient stated understanding. P eripheral IV removed. Patient wheeled off unit with nursing staff. Transportatio n provided by patient and is discharging home. * Jess Araiza, PT - 09/04/2018 9:20 AM CDT PHYSICAL THERAPY NOTE Per discussion with OT, patient reports no concerns with mobility with no PT goa ls identified. PT will discontinue service, please re-consult if the patient has a decline in functional status. Therapist: Jess Araiza, PT Date: 09/04/2018 * Merrill Medellin, OT - 09/04/2018 9:10 AM CDT OCCUPATIONAL THERAPY DISCONTINUE NOTE Patient denies changes from baseline ADLs and functional mobility and reports no history of balance loss or falls in the last three months. Patient has not had a procedure or surgery that would make getting dressed difficult, including putting on socks and shoes. Patient has not demonstrated or reported new diffic ulties with vision when completing functional tasks. Patient endorses no concer ns with functional skills at home. Currently, the patient is ambulating (in gloria m/ on unit) without difficulty. Encouraged patient to continue to perform functional skills/ADLs while in the hospital and discussed the ability for the patient to complete their ADLs wi th the bedside nursing staff. Occupational therapy services will be discontinue d at this time, please re-consult if the patient has a change in functional stat us. Merrill Medellin OTR/L [id number] * Lillian Paz MD - 09/04/2018 7:32 AM CDT General Progress Note Name: Liudmila Sam Today's Date: 09/04/2018 Admission Date: 08/28/2018 LOS: 7 days Assessment/Plan: Active Problems: Hypotension Mr. 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 #Acute Kidney Injury - improving #Dysuria - Cr 1.81 on admission; Baseline Cr 1-1.2 -Suspect component of FAINA from intravascular volume depletion and elevated intra abdominal pressures - Dysuria suspected to be from irritation s/p straight cath - FeNA and FeUrea revealing prerenal physiology - s/p 500 ml 5% albumin on 08/31 with an additional dose of albumin that evening with 500 ml of NS - repeat UA without protein, only 2-10 WBC, negative nitrite and neg Leuk's not meeting criteria for cx. RBC's most likely from straight cath - repeat UA form 09/02 with only 2-10 WBC's, no RBC's or protein Plan - continue midodrine 15 mg q8h - Continue Pyridium for sx control of dysuria - Urology consulted, recommend no acute surgical intervention. Add tamsulosin 0. 4mg #Cirrhosis #Ascites #Acute Portal Vein Occlusion - Likely 2/2 to Hep C - HCV tx with [facility] in past and has never had screening EGD for varices - Abd US Doppler with acute thrombus through the portal V system and cirrhotic a ppearing liver. After discussion with hepatology, we feel the poor flow is 2/2 t o tumor and not acute thrombosis - s/p diagnostic and therapeutic para on 08/29 with reportedly 11 liters taken of f. 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 Alvarez in [place] who was referred to Dr. Lyons with the sameer ent's first appointment being 08/28/2018 - Staging PET scanfor Lymphomaon 06/02/2018 showed a large central right lobe liver mass which was PET avid with SUV 9.9.FDG avid lymphadenopathy in the chest abdomen and subcutaneous nodules in the flanks as well as peritoneum and o mentum. - Staging CT scan on 06/12/[address] Ponce revealed cirrhotic liver with ill -defined low-density right lobe liver mass measuring 6.7 cm. Moderate ascites. Infiltration of omentum and nodularity suspicious for peritoneal carcinomatos is. - AFP greater than 20,000 on 06/20/2018. Plan - After discussion with Dr. Eloy and Hepatology team, with increased risk of best er biopsy, will defer for now. #Diarrhea (resolved) -C. Diff negative #Hx of Parotid Lymphoma - Dx on 04/09/18 - Follows with Dr. Alvarez in [place] at the [facility] - PET scan from 06/06/2018 with possible metastatic lymphoma multifocal in distri bution to neck, abdomen, and chest (including liver, omentum and peritoneum) -Set up hospice care outpatient via primary oncologist #Tobacco Use Disorder - Nicotine patch FEN: No IVF, Replete prn, Low Na diet DVT: Lovenox Code: Full Dispo: Discharge today Patient seen and discussed with Dr. Samuels Subjective Liudmila Sma is a 67 y.o. male. No acute overnight events. Continues to have unchanged dysuria. He denies any li ghtheadedness. He denies fever, chill, nausea, vomiting, constipation/diarrhea, abdominal pain, dyspnea, chest pain. Endorsing dysuria Medications Scheduled Meds: dextran 70/hypromellose (NATURAL BALANCE TEARS) 0.1/0.3 % ophthalmic solution 1- 2 drop 1-2 drop Both Eyes TID heparin (porcine) PF syringe 5,000 Units 5,000 Units Subcutaneous Q8H melatonin tablet 3 mg 3 mg Oral QHS midodrine (PROAMATINE) tablet 15 mg 15 mg Oral Q8H nicotine (NICODERM CQ STEP 2) 14 mg/day patch 1 patch 1 patch Transdermal QDAY phenazopyridine (PYRIDIUM) tablet 100 mg 100 mg Oral TID Continuous Infusions: PRN and Respiratory Meds:loperamide PRN, methylcellulose PRN, ondansetron (ZOFRA N) IV Q6H PRN, vitamin A & D PRN Review of Systems: A 14 point review of systems was negative except for what is described above Objective: Vital Signs: Last Filed Vital Signs: 24 Lindy r Range BP: 117/61 (09/04 0521) Temp: 36.4 C (97.5 F) (09/04 520) Pulse: 95 (09/04 520) Respirations: 18 PER MINUTE (09/04 520) SpO2: 97 % (09/04 520) O2 Delivery: None (Room Air) (09/04 520) BP: (117-124)/(56-69) Temp: [36.3 C (97.4 F)-36.5 C (97.7 F)] Pulse: [69-95] Respirations: [18 PER MINUTE] SpO2: [96 %-98 %] O2 Delivery: None (Room Air) Intensity Pain Scale (Self Report): 8 (09/03/18 1000) Intensity Pain Scale (Self Report): 8 (09/03/18 1000) Vitals: 08/28/18202508/29/18 0841 Weight: 107.7 kg (237 lb 7 oz) 107.5 kg (237 lb) Intake/Output Summary: (Last 24 hours) Intake/Output Summary (Last 24 hours) at 09/04/2018 0732 Last data filed at 09/03/2018 2204 Gross per 24 hour Intake 473 ml Output 0 ml Net 473 ml Stool Occurrence: 0 Physical Exam General: Alert, cooperative, no distress, appears stated age Lungs: Clear to auscultation bilaterally Heart: Regular rate and rhythm, S1, S2 normal, no murmur, click rub or gallop Abdomen: Soft, distended, no TTP. Bowel sounds normal. No masses. Hepatomega ly Extremities: Extremities normal, atraumatic, no cyanosis, severe pitting edema in LE Peripheral pulses: 2+ and symmetric, all extremities Skin: raised macular plaque on the patients center chest, several atypical appea ring lesions on head, back and chest concerning for lesser-trelat Lab Review 24-hour labs: Results for orders placed or performed during the hospital encounter of 08/28/18 (from the past 24 hour(s)) PROTIME INR (PT) Collection Time: 09/04/18 5:03 AM Result Value Ref Range INR 1.1 0.8 - 1.2 CBC AND DIFF Collection Time: 09/04/18 5:03 AM Result Value Ref Range White Blood Cells 4.5 4.5 - 11.0 K/UL RBC 5.18 4.4 - 5.5 M/UL Hemoglobin 16.0 13.5 - 16.5 GM/DL Hematocrit 46.5 40 - 50 % MCV 89.8 80 - 100 FL MCH 30.9 26 - 34 PG MCHC 34.4 32.0 - 36.0 G/DL RDW 18.3 (H) 11 - 15 % Platelet Count 105 (L) 150 - 400 K/UL MPV 9.4 7 - 11 FL Neutrophils 76 41 - 77 % Lymphocytes 9 (L) 24 - 44 % Monocytes 14 (H) 4 - 12 % Eosinophils 0 0 - 5 % Basophils 1 0 - 2 % Absolute Neutrophil Count 3.40 1.8 - 7.0 K/UL Absolute Lymph Count 0.40 (L) 1.0 - 4.8 K/UL Absolute Monocyte Count 0.60 0 - 0.80 K/UL Absolute Eosinophil Count 0.00 0 - 0.45 K/UL Absolute Basophil Count 0.00 0 - 0.20 K/UL COMPREHENSIVE METABOLIC PANEL Collection Time: 09/04/18 5:03 AM Result Value Ref Range Sodium 138 137 - 147 MMOL/L Potassium 4.2 3.5 - 5.1 MMOL/L Chloride 103 98 - 110 MMOL/L Glucose 96 70 - 100 MG/DL Blood Urea Nitrogen 29 (H) 7 - 25 MG/DL Creatinine 1.27 (H) 0.4 - 1.24 MG/DL Calcium 10.2 8.5 - 10.6 MG/DL Total Protein 6.5 6.0 - 8.0 G/DL Total Bilirubin 5.2 (H) 0.3 - 1.2 MG/DL Albumin 3.7 3.5 - 5.0 G/DL Alk Phosphatase 173 (H) 25 - 110 U/L AST (SGOT) 140 (H) 7 - 40 U/L CO2 22 21 - 30 MMOL/L ALT (SGPT) 25 7 - 56 U/L Anion Gap 13 (H) 3 - 12 eGFR Non 57 (L) >60 mL/min eGFR >60 >60 mL/min MAGNESIUM Collection Time: 09/04/18 5:03 AM Result Value Ref Range Magnesium 2.5 1.6 - 2.6 mg/dL Point of Care Testing (Last 24 hours) Glucose: 96 (09/04/18 0503) Radiology and other Diagnostics Review: Pertinent radiology reviewed. Associated attestation - Austen Samuels MD - 09/04/2018 6:59 PM CDT Attestation by Dr. Samuels: I interviewed and examined this patient with Dr. Paz and confirmed her history and physical findings. I have personally revi ewed the lab data and x-ray studies. Together we formulated the assessment and plans outlined below. 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 I reviewed this with him and discussed with Dr. Lyons. Mr. Long james understands his time is limited and would like to go home and focus on sympt om control. He wishes to go home today. We reviewed his case with his local on cologist, Dr. Mary Ellen Alvarez, who will arrange for hospice care and assist with pa lliation of his symptoms. Dysuria - appreciate Urology assistance, will continue pyridium and add tamsulos in as suggested. Cirrhosis Parotid lymphoma OK for d/c as outlined. * Quentin Abernathy DO - 09/03/2018 11:00 AM CDT General Progress Note Name: Liudmila Sam Today's Date: 09/03/2018 Admission Date: 08/28/2018 LOS: 6 days Assessment/Plan: Active Problems: Hypotension Mr. 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 #Acute Kidney Injury - improving #Dysuria - Cr 1.81 on admission; Baseline Cr 1-1.2 Suspect component of FAINA from intravascular volume depletion and elevated intraa bdominal pressures - dysuria suspected to be from irritation s/p straight cath - UA without protein, blood - FeNA and FeUrea revealing prerenal physiology and remain this way - s/p 500 ml 5% albumin on 08/31 with an additional dose of albumin that evening with 500 ml of NS - repeat UA without protein, only 2-10 WBC, negative nitrite and neg Leuk's not meeting criteria for cx. RBC's most likely from straight cath - repeat UA form 09/02 with only 2-10 WBC's, no RBC's or protein Plan - continue midodrine 15 mg q8h - Will trial Pyridium for sx control of dysuria #Cirrhosis #Ascites #Acute Portal Vein Occlusion - Likely 2/2 to Hep C - HCV tx with [facility] in past and has never has screening EGD for varices - Abd US Doppler with acute thrombus through the portal V system and cirrhotic a ppearing liver. After discussion with hepatology, we feel the poor flow is 2/2 t o tumor and not acute thrombosis - s/p diagnostic and therapeutic para on 08/29 with reportedly 11 liters taken of f. 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 Alvarez in [place] who was referred to Dr. Lyons with the sameer ent's first appointment being 08/28/2018 - Staging PET scanfor Lymphomaon 06/02/2018 showed a large central right lobe liver mass which was PET avid with SUV 9.9.FDG avid lymphadenopathy in the chest abdomen and subcutaneous nodules in the flanks as well as peritoneum and o mentum. - Staging CT scan on 06/12/[address] Ponce revealed cirrhotic liver with ill -defined low-density right lobe liver mass measuring 6.7 cm. Moderate ascites. Infiltration of omentum and nodularity suspicious for peritoneal carcinomatos is. - AFP greater than 20,000 on 06/20/2018. Plan - After discussion with Dr. Lyons and Hepatology team, with increased risk of best er biopsy, will defer for now. #Diarrhea -C. 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 Alvarez in [place] at the [facility] - PET scan from 06/06/2018 with possible metastatic lymphoma multifocal in distri bution to neck, abdomen, and chest (including liver, omentum and peritoneum) #Tobacco Use Disorder - Nicotine patch FEN: No IVF, Replete prn, Low Na diet DVT: Lovenox Code: Full Dispo: Continue admit to Oncology Patient discussed with Dr. Vega. Quentin Abernathy DO, MA PGY-1, Internal Medicine Pager [phone] Subjective Liudmila Sam is a 67 y.o. male. No acute overnight events. Patient states diarrhea has resolved, but is still having dysuria. He denies any lightheadedness. He denies fever, chill, nausea, vomiting, constipation/diarrhea, abdominal pain, dyspnea, chest pain. Endorsing dysuria Medications Scheduled Meds: dextran 70/hypromellose (NATURAL BALANCE TEARS) 0.1/0.3 % ophthalmic solution 1- 2 drop 1-2 drop Both Eyes TID heparin (porcine) PF syringe 5,000 Units 5,000 Units Subcutaneous Q8H melatonin tablet 3 mg 3 mg Oral QHS midodrine (PROAMATINE) tablet 15 mg 15 mg Oral Q8H nicotine (NICODERM CQ STEP 2) 14 mg/day patch 1 patch 1 patch Transdermal QDAY phenazopyridine (PYRIDIUM) tablet 100 mg 100 mg Oral TID Continuous Infusions: PRN and Respiratory Meds:loperamide PRN, methylcellulose PRN, ondansetron (ZOFRA N) IV Q6H PRN Review of Systems: A 14 point review of systems was negative except for what is described above Objective: Vital Signs: Last Filed Vital Signs: 24 Lindy r Range BP: 117/60 (09/03 624) Temp: 36.8 C (98.2 F) (09/03 624) Pulse: 69 (09/03 0729) Respirations: 18 PER MINUTE (09/03 624) SpO2: 97 % (09/03 624) O2 Delivery: None (Room Air) (09/03 624) BP: (117-126)/(60-65) Temp: [36.2 C (97.2 F)-36.8 C (98.2 F)] Pulse: [69-94] Respirations: [18 PER MINUTE] SpO2: [97 %-98 %] O2 Delivery: None (Room Air) Intensity Pain Scale (Self Report): Asleep (09/03/18 0400) Vitals: 08/28/18 2026 08/29/18 0841 Weight: 107.7 kg (237 lb 7 oz) 107.5 kg (237 lb) Intake/Output Summary: (Last 24 hours) Intake/Output Summary (Last 24 hours) at 09/03/2018 1100 Last data filed at 09/03/2018 0500 Gross per 24 hour Intake 500 ml Output 15 ml Net 485 ml Stool Occurrence: 5(small solid stools) Physical Exam General: Alert, cooperative, no distress, appears stated age Eyes: Conjunctivae/corneas clear. PERRL, EOMs intact. Neck: Supple, symmetrical, trachea midline, no adenopathy, no JVD, Right sided mass posterior to ear Lungs: Clear to auscultation bilaterally Heart: Regular rate and rhythm, S1, S2 normal, no murmur, click rub or gallop Abdomen: Soft, distended, no TTP. Bowel sounds normal. No masses. Hepatomega ly Extremities: Extremities normal, atraumatic, no cyanosis, severe pitting edema in LE Peripheral pulses: 2+ and symmetric, all extremities Skin: raised macular plaque on the patients center chest, several atypical appea ring lesions on head, back and chest concerning for lesser-trelat Neurologic: CNII - XII intact. Normal strength, sensation throughout. No keenan ixis Psych: Appropriate Lab Review 24-hour labs: Results for orders placed or performed during the hospital encounter of 08/28/18 (from the past 24 hour(s)) URINALYSIS DIPSTICK REFLEX TO CULTURE Collection Time: 09/02/18 6:03 PM Result Value Ref Range Color,UA NGUYEN Turbidity,UA CLEAR CLEAR-CLEAR Specific [place]-Urine 1.013 1.003 - 1.035 pH,UA 5.0 5.0 - 8.0 Protein,UA NEG NEG-NEG Glucose,UA NEG NEG-NEG Ketones,UA NEG NEG-NEG Bilirubin,UA NEG NEG-NEG Blood,UA NEG NEG-NEG Urobilinogen,UA NORMAL NORM-NORMAL Nitrite,UA NEG NEG-NEG Leukocytes,UA NEG NEG-NEG Urine Ascorbic Acid, UA NEG NEG-NEG URINALYSIS MICROSCOPIC REFLEX TO CULTURE Collection Time: 09/02/18 6:03 PM Result Value Ref Range WBCs,UA 2-10 0 - 2 /HPF RBCs,UA 0-2 0 - 3 /HPF Comment,UA Criteria for reflex to culture are WBC>10, Positive Nitrite, and/or >=+1 leukocytes. If quantity is not sufficient, an addendum will follow. MucousUA TRACE Hyaline Cast 2-5 CBC AND DIFF Collection Time: 09/03/18 5:15 AM Result Value Ref Range White Blood Cells 4.8 4.5 - 11.0 K/UL RBC 5.36 4.4 - 5.5 M/UL Hemoglobin 16.2 13.5 - 16.5 GM/DL Hematocrit 48.5 40 - 50 % MCV 90.5 80 - 100 FL MCH 30.2 26 - 34 PG MCHC 33.3 32.0 - 36.0 G/DL RDW 18.5 (H) 11 - 15 % Platelet Count 126 (L) 150 - 400 K/UL MPV 9.4 7 - 11 FL Neutrophils 77 41 - 77 % Lymphocytes 8 (L) 24 - 44 % Monocytes 14 (H) 4 - 12 % Eosinophils 1 0 - 5 % Basophils 0 0 - 2 % Absolute Neutrophil Count 3.70 1.8 - 7.0 K/UL Absolute Lymph Count 0.40 (L) 1.0 - 4.8 K/UL Absolute Monocyte Count 0.70 0 - 0.80 K/UL Absolute Eosinophil Count 0.00 0 - 0.45 K/UL Absolute Basophil Count 0.00 0 - 0.20 K/UL COMPREHENSIVE METABOLIC PANEL Collection Time: 09/03/18 5:15 AM Result Value Ref Range Sodium 136 (L) 137 - 147 MMOL/L Potassium 4.0 3.5 - 5.1 MMOL/L Chloride 101 98 - 110 MMOL/L Glucose 102 (H) 70 - 100 MG/DL Blood Urea Nitrogen 30 (H) 7 - 25 MG/DL Creatinine 1.41 (H) 0.4 - 1.24 MG/DL Calcium 9.6 8.5 - 10.6 MG/DL Total Protein 6.4 6.0 - 8.0 G/DL Total Bilirubin 4.3 (H) 0.3 - 1.2 MG/DL Albumin 3.7 3.5 - 5.0 G/DL Alk Phosphatase 171 (H) 25 - 110 U/L AST (SGOT) 144 (H) 7 - 40 U/L CO2 26 21 - 30 MMOL/L ALT (SGPT) 27 7 - 56 U/L Anion Gap 9 3 - 12 eGFR Non 50 (L) >60 mL/min eGFR >60 >60 mL/min MAGNESIUM Collection Time: 09/03/18 5:15 AM Result Value Ref Range Magnesium 2.5 1.6 - 2.6 mg/dL Point of Care Testing (Last 24 hours) Glucose: (!) 102 (09/03/18 0515) Radiology and other Diagnostics Review: Pertinent radiology reviewed. Associated attestation - Ebonie Vega MD - 09/03/2018 10:58 PM CDT ATTESTATION I personally performed the zabala portions of the E/M visit, discussed case with re sident and concur with resident documentation of history, physical exam, assessm ent, and treatment plan unless otherwise noted. Some clinical improvement howev er with persistent pain at the urethral meatus, will initiate trial of pyridium and continue barrier cream. Pending this, will need to consider urology evaluat ion if not improved/resolved. Staff name: Ebonie Vega MD Date: 09/03/2018 * Jazmin Buck RN - 09/02/2018 6:36 PM CDT RN notified MD Noriega of patient's penile pain and was instructed to do another post void bladder scan. Patient's post void bladder scan was 298 ml and instr ucted RN to straight cath patient however patient refused. notified of refusa l. No new orders at this time. Will CTM. * Reagan Noriega MD - 09/02/2018 7:25 AM CDT General Progress Note Name: Liudmila Sam Today's Date: 09/02/2018 Admission Date: 08/28/2018 LOS: 5 days Assessment/Plan: Active Problems: Hypotension Mr. 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 #Acute Kidney Injury - improving #Dysuria - Cr 1.81 on admission; Baseline Cr 1-1.2 Suspect component of FAINA from intravascular volume depletion and elevated intraa bdominal pressures - UA without protein, blood - FeNA and FeUrea revealing prerenal physiology and remain this way - s/p 500 ml 5% albumin on 08/31 with an additional dose of albumin that evening with 500 ml of NS - repeat UA without protein, only 2-10 WBC, negative nitrite and neg Leuk's not meeting criteria for cx. RBC's most likely from straight cath Plan - continue midodrine 15 mg q8h #Cirrhosis #Ascites #Acute Portal Vein Occlusion - Likely 2/2 to Hep C - HCV tx with [facility] in past and has never has screening EGD for varices - Abd US Doppler with acute thrombus through the portal V system and cirrhotic a ppearing liver. After discussion with hepatology, we feel the poor flow is 2/2 t o tumor and not acute thrombosis - s/p diagnostic and therapeutic para on 08/29 with reportedly 11 liters taken of f. 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 Alvarez in [place] who was referred to Dr. Lyons with the sameer ent's first appointment being 08/28/2018 - Staging PET scanfor Lymphomaon 06/02/2018 showed a large central right lobe liver mass which was PET avid with SUV 9.9.FDG avid lymphadenopathy in the chest abdomen and subcutaneous nodules in the flanks as well as peritoneum and o mentum. - Staging CT scan on 06/12/[address] Ponce revealed cirrhotic liver with ill -defined low-density right lobe liver mass measuring 6.7 cm. Moderate ascites. Infiltration of omentum and nodularity suspicious for peritoneal carcinomatos is. - AFP greater than 20,000 on 06/20/2018. Plan - After discussion with Dr. Lyons and Hepatology team, with increased risk of best er biopsy, will defer for now. #Diarrhea -C. 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 Alvarez in [place] at the [facility] - PET scan from 06/06/2018 with possible metastatic lymphoma multifocal in distri bution to neck, abdomen, and chest (including liver, omentum and peritoneum) #Tobacco Use Disorder - Nicotine patch FEN: No IVF, Replete prn, Low Na diet DVT: Lovenox Code: Full Dispo: Continue admit to Oncology Patient discussed with Dr. Vega. Reagan Noriega M.D. Department of Internal Medicine, PGY-2 Subjective Liudmila Sam is a 67 y.o. male. No acute overnight events. Patient states that he continues to have diarrhea. Otherwise, he feels improved. He denies any lightheadedness. Discussed plan to monitor Cr off albumin and discharge in AM if remains improved . He had no questions or concerns. He denies fever, chill, nausea, vomiting, constipation, abdominal pain, dyspnea, chest pain. Endorsing diarrhea. Medications Scheduled Meds: dextran 70/hypromellose (NATURAL BALANCE TEARS) 0.1/0.3 % ophthalmic solution 1- 2 drop 1-2 drop Both Eyes TID heparin (porcine) PF syringe 5,000 Units 5,000 Units Subcutaneous Q8H melatonin tablet 3 mg 3 mg Oral QHS midodrine (PROAMATINE) tablet 15 mg 15 mg Oral Q8H nicotine (NICODERM CQ STEP 2) 14 mg/day patch 1 patch 1 patch Transdermal QDAY Continuous Infusions: PRN and Respiratory Meds:loperamide PRN, methylcellulose PRN, ondansetron (ZOFRA N) IV Q6H PRN Review of Systems: A 14 point review of systems was negative except for what is described above Objective: Vital Signs: Last Filed Vital Signs: 24 Lindy r Range BP: 123/64 (09/02 1399) Temp: 36.4 C (97.5 F) (09/02 1399) Pulse: 73 (09/02 1399) Respirations: 18 PER MINUTE (09/02 1399) SpO2: 98 % (09/02 1399) O2 Delivery: None (Room Air) (09/02 1399) BP: (112-123)/(52-64) Temp: [36.3 C (97.3 F)-36.8 C (98.3 F)] Pulse: [70-91] Respirations: [18 PER MINUTE] SpO2: [95 %-98 %] O2 Delivery: None (Room Air) Vitals: 08/28/18 2026 08/29/18 0841 Weight: 107.7 kg (237 lb 7 oz) 107.5 kg (237 lb) Intake/Output Summary: (Last 24 hours) Intake/Output Summary (Last 24 hours) at 09/02/2018 1418 Last data filed at 09/02/2018 0537 Gross per 24 hour Intake 713 ml Output Net 713 ml Stool Occurrence: 1 Physical Exam General: Alert, cooperative, no distress, appears stated age Eyes: Conjunctivae/corneas clear. PERRL, EOMs intact. Neck: Supple, symmetrical, trachea midline, no adenopathy, no JVD, Right sided mass posterior to ear Lungs: Clear to auscultation bilaterally Heart: Regular rate and rhythm, S1, S2 normal, no murmur, click rub or gallop Abdomen: Soft, distended, no TTP. Bowel sounds normal. No masses. Hepatomega ly Extremities: Extremities normal, atraumatic, no cyanosis, severe pitting edema in LE Peripheral pulses: 2+ and symmetric, all extremities Skin: raised macular plaque on the patients center chest, several atypical appea ring lesions on head, back and chest concerning for lesser-trelat Neurologic: CNII - XII intact. Normal strength, sensation throughout. No keenan ixis Psych: Appropriate Lab Review 24-hour labs: Results for orders placed or performed during the hospital encounter of 08/28/18 (from the past 24 hour(s)) C DIFFICILE BY PCR Collection Time: 09/01/18 5:43 PM Result Value Ref Range C. difficile Toxin B PCR NEGATIVE-wait 7 days to repeat test PROTIME INR (PT) Collection Time: 09/02/18 4:39 AM Result Value Ref Range INR 1.1 0.8 - 1.2 CBC AND DIFF Collection Time: 09/02/18 4:39 AM Result Value Ref Range White Blood Cells 4.9 4.5 - 11.0 K/UL RBC 5.48 4.4 - 5.5 M/UL Hemoglobin 16.9 (H) 13.5 - 16.5 GM/DL Hematocrit 49.8 40 - 50 % MCV 90.9 80 - 100 FL MCH 30.8 26 - 34 PG MCHC 33.9 32.0 - 36.0 G/DL RDW 18.2 (H) 11 - 15 % Platelet Count 137 (L) 150 - 400 K/UL MPV 9.8 7 - 11 FL Neutrophils 78 (H) 41 - 77 % Lymphocytes 9 (L) 24 - 44 % Monocytes 12 4 - 12 % Eosinophils 0 0 - 5 % Basophils 1 0 - 2 % Absolute Neutrophil Count 3.80 1.8 - 7.0 K/UL Absolute Lymph Count 0.40 (L) 1.0 - 4.8 K/UL Absolute Monocyte Count 0.60 0 - 0.80 K/UL Absolute Eosinophil Count 0.00 0 - 0.45 K/UL Absolute Basophil Count 0.00 0 - 0.20 K/UL COMPREHENSIVE METABOLIC PANEL Collection Time: 09/02/18 4:39 AM Result Value Ref Range Sodium 136 (L) 137 - 147 MMOL/L Potassium 4.4 3.5 - 5.1 MMOL/L Chloride 100 98 - 110 MMOL/L Glucose 100 70 - 100 MG/DL Blood Urea Nitrogen 38 (H) 7 - 25 MG/DL Creatinine 1.69 (H) 0.4 - 1.24 MG/DL Calcium 10.2 8.5 - 10.6 MG/DL Total Protein 6.9 6.0 - 8.0 G/DL Total Bilirubin 4.5 (H) 0.3 - 1.2 MG/DL Albumin 4.1 3.5 - 5.0 G/DL Alk Phosphatase 185 (H) 25 - 110 U/L AST (SGOT) 143 (H) 7 - 40 U/L CO2 24 21 - 30 MMOL/L ALT (SGPT) 21 7 - 56 U/L Anion Gap 12 3 - 12 eGFR Non 41 (L) >60 mL/min eGFR 49 (L) >60 mL/min MAGNESIUM Collection Time: 09/02/18 4:39 AM Result Value Ref Range Magnesium 2.7 (H) 1.6 - 2.6 mg/dL Point of Care Testing (Last 24 hours) Glucose: 100 (09/02/18 0439) Radiology and other Diagnostics Review: Pertinent radiology reviewed. Associated attestation - Ebonie Vega MD - 09/02/2018 11:39 PM CDT ATTESTATION I personally performed the zabala portions of the E/M visit, discussed case with re sident and concur with resident documentation of history, physical exam, assessm ent, and treatment plan unless otherwise noted. Staff name: Ebonie Vega MD Date: 09/02/2018 * Quentin Abernathy, DO - 09/01/2018 12:42 PM CDT General Progress Note Name: Liudmila Sam Today's Date: 09/01/2018 Admission Date: 08/28/2018 LOS: 4 days Assessment/Plan: Active Problems: Hypotension Mr. 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 #Cirrhosis #Ascites #Acute Portal Vein Thrombosis - Likely 2/2 to Hep C - HCV tx with [facility] in past and has never has screening EGD for varices - Abd US Doppler with acute thrombus through the portal V system and cirrhotic a ppearing liver. After discussion with hepatology, we feel the poor flow is 2/2 t o tumor and not acute thrombosis - s/p diagnostic and therapeutic para on 08/29 with reportedly 11 liters taken of f. 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 Suspect component of FAINA from i ntravascular volume depletion and elevated intraabdominal pressures -1.81 on adx - UA without protein, blood - FeNA and FeUrea revealing prerenal physiology and remain this way - s/p 500 ml 5% albumin on 08/31 with an additional dose of albumin that evening with 500 ml of NS - repeat UA without protein, only 2-10 WBC, negative nitrite and neg Leuk's not meeting criteria for cx. RBC's most likely from straight cath Plan - will give 500 ml albumin today #Liver Mass - Follows with a Dr. Alvarez in [place] who was referred to Dr. Lyons with the sameer ent's first appointment being 08/28/2018 - Staging PET scanfor Lymphomaon 06/02/2018 showed a large central right lobe liver mass which was PET avid with SUV 9.9.FDG avid lymphadenopathy in the chest abdomen and subcutaneous nodules in the flanks as well as peritoneum and o mentum. - Staging CT scan on 06/12/[address] Ponce revealed cirrhotic liver with ill -defined low-density right lobe liver mass measuring 6.7 cm. Moderate ascites. Infiltration of omentum and nodularity suspicious for peritoneal carcinomatos is. - AFP greater than 20,000 on 06/20/2018. Plan - After discussion with Dr. Lyons and Hepatology team, with increased risk of best er biopsy, will defer for now. #Hx of Parotid Lymphoma - Dx on 04/09/18 - Follows with Dr. Alvarez in [place] at the [facility] - PET scan from 06/06/2018 with possible metastatic lymphoma multifocal in distri bution to neck, abdomen, and chest (including liver, omentum and peritoneum) #Tobacco Use Disorder - Nicotine patch FEN: No IVF, Replete prn, Low Na diet DVT: Lovenox Code: Full Dispo: Continue admit to Oncology Patient discussed with Dr. Joni Abernathy, DO, MA PGY-1, Internal Medicine Pager [phone] Subjective Liudmila Sam is a 67 y.o. male. Overnight patient had significant pain with urination. He states he found the inability to urinate painful. Patient states he is feeling better this morning. He states his breathing is fine. He denies an y f/c, chest pain, sob, n/v/abdominal pain/c/d, urinary complaints. He denies an y melena, hematochezia. Medications Scheduled Meds: dextran 70/hypromellose (NATURAL BALANCE TEARS) 0.1/0.3 % ophthalmic solution 1- 2 drop 1-2 drop Both Eyes TID heparin (porcine) PF syringe 5,000 Units 5,000 Units Subcutaneous Q8H melatonin tablet 3 mg 3 mg Oral QHS midodrine (PROAMATINE) tablet 15 mg 15 mg Oral Q8H nicotine (NICODERM CQ STEP 2) 14 mg/day patch 1 patch 1 patch Transdermal QDAY Continuous Infusions: PRN and Respiratory Meds:methylcellulose PRN, ondansetron (ZOFRAN) IV Q6H PRN Review of Systems: A 14 point review of systems was negative except for what is described above Objective: Vital Signs: Last Filed Vital Signs: 24 Lindy r Range BP: 115/54 (09/01 1003) Temp: 36.3 C (97.3 F) (09/01 1003) Pulse: 74 (09/01 1003) Respirations: 18 PER MINUTE (09/01 1003) SpO2: 96 % (09/01 1003) O2 Delivery: None (Room Air) (09/01 1003) BP: (110-119)/(54-68) Temp: [36.3 C (97.3 F)-36.6 C (97.8 F)] Pulse: [67-97] Respirations: [16 PER MINUTE-18 PER MINUTE] SpO2: [95 %-97 %] O2 Delivery: None (Room Air) Intensity Pain Scale (Self Report): 10 (08/31/182100) Vitals: 08/28/18202508/29/18 0841 Weight: 107.7 kg (237 lb 7 oz) 107.5 kg (237 lb) Intake/Output Summary: (Last 24 hours) Intake/Output Summary (Last 24 hours) at 09/01/2018 1242 Last data filed at 09/01/2018 0544 Gross per 24 hour Intake 960 ml Output 155 ml Net 805 ml Stool Occurrence: 1 Physical Exam General: Alert, cooperative, no distress, appears stated age Eyes: Conjunctivae/corneas clear. PERRL, EOMs intact. Neck: Supple, symmetrical, trachea midline, no adenopathy, thyroid: no enlargem ent/tenderness/nodules, no carotid bruit and no JVD, Right sided mass posterior to ear Lungs: Clear to auscultation bilaterally Heart: Regular rate and rhythm, S1, S2 normal, no murmur, click rub or gallop Abdomen: Soft, distended, no TTP. Bowel sounds normal. No masses. Hepatomega ly Extremities: Extremities normal, atraumatic, no cyanosis, severe pitting edema in LE Peripheral pulses: 2+ and symmetric, all extremities Skin: raised macular plaque on the patients center chest, several atypical appea ring lesions on head, back and chest concerning for lesser-trelat Neurologic: CNII - XII intact. Normal strength, sensation throughout. No keenan ixis Psych: Appropriate Lab Review 24-hour labs: Results for orders placed or performed during the hospital encounter of 08/28/18 (from the past 24 hour(s)) CREATININE-URINE RANDOM Collection Time: 08/31/18 4:38 PM Result Value Ref Range Creatinine, Random 255 MG/DL SODIUM-URINE RANDOM Collection Time: 08/31/18 4:38 PM Result Value Ref Range Sodium, Random 15 MMOL/L UREA NITROGEN-URINE RANDOM Collection Time: 08/31/18 4:38 PM Result Value Ref Range Urea Nitrogen 507 MG/DL URINALYSIS DIPSTICK REFLEX TO CULTURE Collection Time: 09/01/18 12:48 AM Result Value Ref Range Color,UA NGUYEN Turbidity,UA 1+ (A) CLEAR-CLEAR Specific [place]-Urine 1.014 1.003 - 1.035 pH,UA 5.0 5.0 - 8.0 Protein,UA NEG NEG-NEG Glucose,UA NEG NEG-NEG Ketones,UA NEG NEG-NEG Bilirubin,UA NEG NEG-NEG Blood,UA 3+ (A) NEG-NEG Urobilinogen,UA NORMAL NORM-NORMAL Nitrite,UA NEG NEG-NEG Leukocytes,UA NEG NEG-NEG Urine Ascorbic Acid, UA NEG NEG-NEG URINALYSIS MICROSCOPIC REFLEX TO CULTURE Collection Time: 09/01/18 12:48 AM Result Value Ref Range WBCs,UA 2-10 0 - 2 /HPF RBCs,UA 20-50 0 - 3 /HPF Comment,UA Criteria for reflex to culture are WBC>10, Positive Nitrite, and/or >=+1 leukocytes. If quantity is not sufficient, an addendum will follow. MucousUA TRACE Squamous Epithelial Cells 0-2 0 - 5 Hyaline Cast 2-5 PROTIME INR (PT) Collection Time: 09/01/18 5:46 AM Result Value Ref Range INR 1.1 0.8 - 1.2 CBC AND DIFF Collection Time: 09/01/18 5:46 AM Result Value Ref Range White Blood Cells 4.8 4.5 - 11.0 K/UL RBC 5.26 4.4 - 5.5 M/UL Hemoglobin 16.0 13.5 - 16.5 GM/DL Hematocrit 48.1 40 - 50 % MCV 91.5 80 - 100 FL MCH 30.3 26 - 34 PG MCHC 33.2 32.0 - 36.0 G/DL RDW 18.3 (H) 11 - 15 % Platelet Count 125 (L) 150 - 400 K/UL MPV 10.3 7 - 11 FL Neutrophils 76 41 - 77 % Lymphocytes 11 (L) 24 - 44 % Monocytes 12 4 - 12 % Eosinophils 0 0 - 5 % Basophils 1 0 - 2 % Absolute Neutrophil Count 3.70 1.8 - 7.0 K/UL Absolute Lymph Count 0.50 (L) 1.0 - 4.8 K/UL Absolute Monocyte Count 0.60 0 - 0.80 K/UL Absolute Eosinophil Count 0.00 0 - 0.45 K/UL Absolute Basophil Count 0.00 0 - 0.20 K/UL COMPREHENSIVE METABOLIC PANEL Collection Time: 09/01/18 5:46 AM Result Value Ref Range Sodium 133 (L) 137 - 147 MMOL/L Potassium 4.4 3.5 - 5.1 MMOL/L Chloride 99 98 - 110 MMOL/L Glucose 94 70 - 100 MG/DL Blood Urea Nitrogen 42 (H) 7 - 25 MG/DL Creatinine 2.11 (H) 0.4 - 1.24 MG/DL Calcium 9.6 8.5 - 10.6 MG/DL Total Protein 6.3 6.0 - 8.0 G/DL Total Bilirubin 4.0 (H) 0.3 - 1.2 MG/DL Albumin 3.7 3.5 - 5.0 G/DL Alk Phosphatase 176 (H) 25 - 110 U/L AST (SGOT) 161 (H) 7 - 40 U/L CO2 22 21 - 30 MMOL/L ALT (SGPT) 24 7 - 56 U/L Anion Gap 12 3 - 12 eGFR Non 31 (L) >60 mL/min eGFR 38 (L) >60 mL/min MAGNESIUM Collection Time: 09/01/18 5:46 AM Result Value Ref Range Magnesium 2.5 1.6 - 2.6 mg/dL Point of Care Testing (Last 24 hours) Glucose: 94 (09/01/18 0546) Radiology and other Diagnostics Review: Pertinent radiology reviewed. Associated attestation - Vinnie Quinones MD - 09/01/2018 3:17 PM CDT ATTESTATION I personally performed the zabala portions of the E/M visit, discussed case with re sident and concur with resident documentation of history, physical exam, assessm ent, and treatment plan unless otherwise noted. Liver Decompensation - appreciate hepatology input - pt's liver function appears quite poor Liver Mass - Possible HCC - discussed risk benefit with oncology and given elevated CEA it is likely this is HCC, no bx needed Hypotension - agree with midodrine - vascularly deplete from liver dz FAINA - pt's baseline is normal to 1.2, per outside records - pt now with acute rise likely from hypoperfusion - agree with albumin use - I am concerned pt may be slipping into HRS Ascites - s/p large volume tap Urinary Retention - place frank PVT - no AC Hx of Lymphoma - pt receives care at [facility] Dispo - cont to provide albumin support - goal at current is to optimize patient's clinical parameters. I suspect he lewis l eventually pursue hospice care and we have discussed this with him. If he does not improve in the next 24-48 hours would discuss d/c on hospice. Staff name: Vinnie Quinones MD Date: 09/01/2018 * Quentin Abernathy DO - 08/31/2018 12:43 PM CDT General Progress Note Name: Liudmila Sam Today's Date: 08/31/2018 Admission Date: 08/28/2018 LOS: 3 days Assessment/Plan: Active Problems: Hypotension Mr. 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 #Cirrhosis #Ascites #Acute Portal Vein Thrombosis - Likely 2/2 to Hep C - HCV tx with Harvoni in past and has never has screening EGD for varices - Abd US Doppler with acute thrombus through the portal V system and cirrhotic a ppearing liver. After discussion with hepatology, we feel the poor flow is 2/2 t o tumor and not acute thrombosis - s/p diagnostic and therapeutic para on 08/29 with reportedly 11 liters taken of f. Fluid SAAG suggestive of Port HTN; no evidence of SBP MELD-Na score: 23 at 08/31/2018 5:18 AM MELD score: 20 at 08/31/2018 5:18 AM Calculated from: Serum Creatinine: 2.35 MG/DL at 08/31/2018 5:18 AM Serum Sodium: 133 MMOL/L at 08/31/2018 5:18 AM Total Bilirubin: 2.8 MG/DL at 08/31/2018 5:18 AM INR(ratio): 1.1 at 08/31/2018 5:18 AM Age: 67 years - Hepatitis B surface Ag negative, Hepatitis B core Ab negative Plan - Consulted hepatology - appreciate input see below - Daily MELD labs - Hold 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 Lasix and Aldactone in setting of hypotension - viral panel pending including HCV PCR - f/u cytology from para #Hyperbilirubinemia - T bili 3.2 on admission - Suspect 2/2 to hepatic congestion Plan > CTM #Hypotension - Likely 2/2 to volume depletion from third-spacing and underlying liver disease - asx Plan - Hold 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 Lisinopril 20 mg daily - Increased Midodrine to 15 mg q8 mg #Elevated Cr - Cr 1.81 on admission - Unclear if this is FAINA vs CKD (no prior labs). Suspect component of FAINA from i ntravascular volume depletion and elevated intraabdominal pressures -1.81 on adx - UA without protein, blood - FeNA and FeUrea revealing prerenal physiology Plan - Repeat Urine studies with continued rise - Will give 500 ml 5% Albumin #Liver Mass - Follows with a Dr. Alvarez in [place] who was referred to Dr. Lyons with the sameer ent's first appointment being 08/28/2018 - Staging PET scanfor Lymphomaon 06/02/2018 showed a large central right lobe liver mass which was PET avid with SUV 9.9.FDG avid lymphadenopathy in the chest abdomen and subcutaneous nodules in the flanks as well as peritoneum and o mentum. - Staging CT scan on 06/12/[address] Ponce revealed cirrhotic liver with ill -defined low-density right lobe liver mass measuring 6.7 cm. Moderate ascites. Infiltration of omentum and nodularity suspicious for peritoneal carcinomatos is. - AFP greater than 20,000 on 06/20/2018. Plan - After discussion with Dr. Lyons and Hepatology team, with increased risk of best er biopsy, will defer for now. #Hx of Parotid Lymphoma - Dx on 04/09/18 - Follows with Dr. Alvarez in [place] at the [facility] - PET scan from 06/06/2018 with possible metastatic lymphoma multifocal in distri bution to neck, abdomen, and chest (including liver, omentum and peritoneum) #Tobacco Use Disorder - Nicotine patch FEN: No IVF, Replete prn, Low Na diet with NPO at midnight DVT: Lovenox Code: Full Dispo: Continue admit to Oncology Patient discussed with Dr. Joni Abernathy DO, MA PGY-1, Internal Medicine Pager [phone] Subjective Liudmila Sma is a 67 y.o. male. Patient states he is feeling well this morn ing. He states his breathing has significantly improved as well as his abdominal pain. He denies any f/c, chest pain, sob, n/v/abdominal pain/c/d, urinary compl aints. He denies any melena, hematochezia. Medications Scheduled Meds: dextran 70/hypromellose (NATURAL BALANCE TEARS) 0.1/0.3 % ophthalmic solution 1- 2 drop 1-2 drop Both Eyes TID enoxaparin (LOVENOX) syringe 40 mg 40 mg Subcutaneous QDAY(21) melatonin tablet 3 mg 3 mg Oral QHS midodrine (PROAMATINE) tablet 15 mg 15 mg Oral Q8H nicotine (NICODERM CQ STEP 2) 14 mg/day patch 1 patch 1 patch Transdermal QDAY Continuous Infusions: PRN and Respiratory Meds:methylcellulose PRN, ondansetron (ZOFRAN) IV Q6H PRN Review of Systems: A 14 point review of systems was negative except for what is described above Objective: Vital Signs: Last Filed Vital Signs: 24 Lindy r Range BP: 101/59 (08/31 920) Temp: 36.2 C (97.2 F) (08/31 920) Pulse: 65 (08/31 920) Respirations: 17 PER MINUTE (08/31 920) SpO2: 98 % (08/31 920) O2 Delivery: None (Room Air) (08/31 920) BP: (81-102)/(42-59) Temp: [36.2 C (97.1 F)-36.5 C (97.7 F)] Pulse: [60-78] Respirations: [14 PER MINUTE-18 PER MINUTE] SpO2: [92 %-98 %] O2 Delivery: None (Room Air) Vitals: 08/28/18202508/29/18 0841 Weight: 107.7 kg (237 lb 7 oz) 107.5 kg (237 lb) Intake/Output Summary: (Last 24 hours) Intake/Output Summary (Last 24 hours) at 08/31/2018 1243 Last data filed at 08/31/2018 0610 Gross per 24 hour Intake 0 ml Output Net 0 ml Stool Occurrence: 0 Physical Exam General: Alert, cooperative, no distress, appears stated age Eyes: Conjunctivae/corneas clear. PERRL, EOMs intact. Neck: Supple, symmetrical, trachea midline, no adenopathy, thyroid: no enlargem ent/tenderness/nodules, no carotid bruit and no JVD, Right sided mass posterior to ear Lungs: Clear to auscultation bilaterally Heart: Regular rate and rhythm, S1, S2 normal, no murmur, click rub or gallop Abdomen: Soft, distended, no TTP. Bowel sounds normal. No masses. Hepatomega ly Extremities: Extremities normal, atraumatic, no cyanosis, severe pitting edema in LE Peripheral pulses: 2+ and symmetric, all extremities Skin: raised macular plaque on the patients center chest, several atypical appea ring lesions on head, back and chest concerning for lesser-trelat Neurologic: CNII - XII intact. Normal strength, sensation throughout. No keenan ixis Psych: Appropriate Lab Review 24-hour labs: Results for orders placed or performed during the hospital encounter of 08/28/18 (from the past 24 hour(s)) CBC AND DIFF Collection Time: 08/31/18 5:18 AM Result Value Ref Range White Blood Cells 4.1 (L) 4.5 - 11.0 K/UL RBC 5.34 4.4 - 5.5 M/UL Hemoglobin 16.3 13.5 - 16.5 GM/DL Hematocrit 48.5 40 - 50 % MCV 90.8 80 - 100 FL MCH 30.6 26 - 34 PG MCHC 33.7 32.0 - 36.0 G/DL RDW 18.3 (H) 11 - 15 % Platelet Count 122 (L) 150 - 400 K/UL MPV 9.9 7 - 11 FL Neutrophils 71 41 - 77 % Lymphocytes 10 (L) 24 - 44 % Monocytes 17 (H) 4 - 12 % Eosinophils 1 0 - 5 % Basophils 1 0 - 2 % Absolute Neutrophil Count 2.90 1.8 - 7.0 K/UL Absolute Lymph Count 0.40 (L) 1.0 - 4.8 K/UL Absolute Monocyte Count 0.70 0 - 0.80 K/UL Absolute Eosinophil Count 0.00 0 - 0.45 K/UL Absolute Basophil Count 0.00 0 - 0.20 K/UL COMPREHENSIVE METABOLIC PANEL Collection Time: 08/31/18 5:18 AM Result Value Ref Range Sodium 133 (L) 137 - 147 MMOL/L Potassium 4.1 3.5 - 5.1 MMOL/L Chloride 99 98 - 110 MMOL/L Glucose 84 70 - 100 MG/DL Blood Urea Nitrogen 35 (H) 7 - 25 MG/DL Creatinine 2.35 (H) 0.4 - 1.24 MG/DL Calcium 8.8 8.5 - 10.6 MG/DL Total Protein 5.9 (L) 6.0 - 8.0 G/DL Total Bilirubin 2.8 (H) 0.3 - 1.2 MG/DL Albumin 3.2 (L) 3.5 - 5.0 G/DL Alk Phosphatase 164 (H) 25 - 110 U/L AST (SGOT) 151 (H) 7 - 40 U/L CO2 25 21 - 30 MMOL/L ALT (SGPT) 23 7 - 56 U/L Anion Gap 9 3 - 12 eGFR Non 28 (L) >60 mL/min eGFR 34 (L) >60 mL/min MAGNESIUM Collection Time: 08/31/18 5:18 AM Result Value Ref Range Magnesium 2.4 1.6 - 2.6 mg/dL PROTIME INR (PT) Collection Time: 08/31/18 5:18 AM Result Value Ref Range INR 1.1 0.8 - 1.2 Point of Care Testing (Last 24 hours) Glucose: 84 (08/31/18 0518) Radiology and other Diagnostics Review: Pertinent radiology reviewed. Associated attestation - Vinnie Quinones MD - 08/31/2018 4:04 PM CDT ATTESTATION I personally performed the zabala portions of the E/M visit, discussed case with re sident and concur with resident documentation of history, physical exam, assessm ent, and treatment plan unless otherwise noted. Liver Decompensation - appreciate hepatology input - pt's liver function appears quite poor Liver Mass - Possible HCC - discussed risk benefit with oncology and given elevated CEA it is likely this is HCC, no bx needed Hypotension - agree with midodrine - vascularly deplete from liver dz FAINA - pt's baseline is normal to 1.2, per outside records - pt now with acute rise likely from hypoperfusion - agree with albumin use - I am concerned pt may be slipping into HRS Ascites - s/p large volume tap Urinary Retention - place frank PVT - no AC Hx of Lymphoma - pt receives care at [facility] Dispo - lengthy conversation with pt regarding progression of care and discussion that hospice may be best route for this patient. Staff name: Vinnie Quinones MD Date: 08/31/2018 * Quentin Abernathy DO - 08/30/2018 11:41 AM CDT General Progress Note Name: Liudmila Sam Today's Date: 08/30/2018 Admission Date: 08/28/2018 LOS: 2 days Assessment/Plan: Active Problems: Hypotension Mr. 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 #Cirrhosis #Ascites #Acute Portal Vein Thrombosis - Likely 2/2 to Hep C - HCV tx with Harvoni in past and has never has screening EGD for varices - Abd US Doppler with acute thrombus through the portal V system and cirrhotic a ppearing liver. After discussion with hepatology, we feel the poor flow is 2/2 t o tumor and not acute thrombosis - s/p diagnostic and therapeutic para on 08/29 with reportedly 11 liters taken of f. Fluid SAAG suggestive of Port HTN; no evidence of SBP MELD-Na score: 18 at 08/30/2018 4:41 AM MELD score: 17 at 08/30/2018 4:41 AM Calculated from: Serum Creatinine: 1.84 MG/DL at 08/30/2018 4:41 AM Serum Sodium: 136 MMOL/L at 08/30/2018 4:41 AM Total Bilirubin: 3.0 MG/DL at 08/30/2018 4:41 AM INR(ratio): 1.1 at 08/30/2018 4:41 AM Age: 67 years Plan - Consulted hepatology - appreciate input see below - Daily MELD labs - Hold 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 Lasix and Aldactone in setting of hypotension - viral panel pending including HCV PCR, HBVc Ab total and HBVs Ag - f/u cytology from para #Hyperbilirubinemia - T bili 3.2 on admission - Suspect 2/2 to hepatic congestion Plan > CTM #Hypotension - Likely 2/2 to volume depletion from third-spacing and underlying liver disease - asx Plan - Hold 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 Lisinopril 20 mg daily - Increased Midodrine to 15 mg TID #Elevated Cr - Cr 1.81 on admission - Unclear if this is FAINA vs CKD (no prior labs). Suspect component of FAINA from i ntravascular volume depletion and elevated intraabdominal pressures -1.81 on adx - UA without protein, blood - FeNA and FeUrea revealing prerenal physiology Plan - CTM #Liver Mass - Follows with a Dr. Alvarez in [place] who was referred to Dr. Lyons with the sameer ent's first appointment being 08/28/2018 - Staging PET scanfor Lymphomaon 06/02/2018 showed a large central right lobe liver mass which was PET avid with SUV 9.9.FDG avid lymphadenopathy in the chest abdomen and subcutaneous nodules in the flanks as well as peritoneum and o mentum. - Staging CT scan on 06/12/[address] Ponce revealed cirrhotic liver with ill -defined low-density right lobe liver mass measuring 6.7 cm. Moderate ascites. Infiltration of omentum and nodularity suspicious for peritoneal carcinomatos is. - AFP greater than 20,000 on 06/20/2018. Plan - After discussion with Dr. Lyons and Hepatology team, with increased risk of best er biopsy, will defer for now. #Hx of Parotid Lymphoma - Dx on 04/09/18 - Follows with Dr. Alvarez in [place] at the [facility] - PET scan from 06/06/2018 with possible metastatic lymphoma multifocal in distri bution to neck, abdomen, and chest (including liver, omentum and peritoneum) #Tobacco Use Disorder - Nicotine patch FEN: No IVF, Replete prn, Low Na diet with NPO at midnight DVT: Lovenox Code: Full Dispo: Continue admit to Oncology Patient discussed with Dr. Joni Abernathy DO, MA PGY-1, Internal Medicine Pager [phone] Subjective Liudmila Sam is a 67 y.o. male. Patient states he is feeling much better th is morning. He states his breathing has significantly improved as well as his ab dominal pain. He denies any f/c, chest pain, sob, n/v/abdominal pain/c/d, urinar y complaints. He denies any melena, hematochezia. Medications Scheduled Meds: acetaminophen (TYLENOL) tablet 650 mg 650 mg Oral ONCE dextran 70/hypromellose (NATURAL BALANCE TEARS) 0.1/0.3 % ophthalmic solution 1- 2 drop 1-2 drop Both Eyes TID melatonin tablet 3 mg 3 mg Oral QHS midodrine (PROAMATINE) tablet 10 mg 10 mg Oral TID (10-30-16) nicotine (NICODERM CQ STEP 2) 14 mg/day patch 1 patch 1 patch Transdermal QDAY Continuous Infusions: PRN and Respiratory Meds:methylcellulose PRN, ondansetron (ZOFRAN) IV Q6H PRN Review of Systems: A 14 point review of systems was negative except for what is described above Objective: Vital Signs: Last Filed Vital Signs: 24 Lindy r Range BP: 90/48 (08/30 918) Temp: 36.3 C (97.3 F) (08/30 918) Pulse: 63 (08/30 918) Respirations: 20 PER MINUTE (08/30 918) SpO2: 94 % (08/30 918) O2 Delivery: None (Room Air) (08/30 918) SpO2 Pulse: 79 (08/29 1200) BP: (72-109)/(41-54) Temp: [36.3 C (97.3 F)-36.7 C (98.1 F)] Pulse: [0-84] Respirations: [14 PER MINUTE-20 PER MINUTE] SpO2: [90 %-97 %] O2 Delivery: None (Room Air) Intensity Pain Scale (Self Report): Asleep (08/29/18 1600) Vitals: 08/28/18 2026 08/29/18 0841 Weight: 107.7 kg (237 lb 7 oz) 107.5 kg (237 lb) Intake/Output Summary: (Last 24 hours) Intake/Output Summary (Last 24 hours) at 08/30/2018 1141 Last data filed at 08/30/2018 1121 Gross per 24 hour Intake 480 ml Output 450 ml Net 30 ml Stool Occurrence: 0 Physical Exam General: Alert, cooperative, no distress, appears stated age Eyes: Conjunctivae/corneas clear. PERRL, EOMs intact. Neck: Supple, symmetrical, trachea midline, no adenopathy, thyroid: no enlargem ent/tenderness/nodules, no carotid bruit and no JVD, Right sided mass posterior to ear Lungs: Clear to auscultation bilaterally Heart: Regular rate and rhythm, S1, S2 normal, no murmur, click rub or gallop Abdomen: Soft, distended, no TTP. Bowel sounds normal. No masses. Hepatomega ly Extremities: Extremities normal, atraumatic, no cyanosis, severe pitting edema in LE Peripheral pulses: 2+ and symmetric, all extremities Skin: raised macular plaque on the patients center chest, several atypical appea ring lesions on head, back and chest concerning for lesser-trelat Neurologic: CNII - XII intact. Normal strength, sensation throughout. No keenan ixis Psych: Appropriate Lab Review 24-hour labs: Results for orders placed or performed during the hospital encounter of 08/28/18 (from the past 24 hour(s)) CBC Collection Time: 08/29/18 3:00 PM Result Value Ref Range White Blood Cells 4.3 (L) 4.5 - 11.0 K/UL RBC 5.00 4.4 - 5.5 M/UL Hemoglobin 15.4 13.5 - 16.5 GM/DL Hematocrit 45.8 40 - 50 % MCV 91.5 80 - 100 FL MCH 30.7 26 - 34 PG MCHC 33.6 32.0 - 36.0 G/DL RDW 18.9 (H) 11 - 15 % Platelet Count 128 (L) 150 - 400 K/UL MPV 11.0 7 - 11 FL PTT (APTT) Collection Time: 08/29/18 3:00 PM Result Value Ref Range APTT 31.5 24.0 - 36.5 SEC PTT (APTT) Collection Time: 08/29/18 11:10 PM Result Value Ref Range APTT >200.0 (HH) 24.0 - 36.5 SEC CBC AND DIFF Collection Time: 08/30/18 4:41 AM Result Value Ref Range White Blood Cells 3.6 (L) 4.5 - 11.0 K/UL RBC 5.23 4.4 - 5.5 M/UL Hemoglobin 16.1 13.5 - 16.5 GM/DL Hematocrit 48.2 40 - 50 % MCV 92.2 80 - 100 FL MCH 30.7 26 - 34 PG MCHC 33.3 32.0 - 36.0 G/DL RDW 18.3 (H) 11 - 15 % Platelet Count 97 (L) 150 - 400 K/UL MPV 10.5 7 - 11 FL Neutrophils 66 41 - 77 % Lymphocytes 16 (L) 24 - 44 % Monocytes 16 (H) 4 - 12 % Eosinophils 1 0 - 5 % Basophils 1 0 - 2 % Absolute Neutrophil Count 2.40 1.8 - 7.0 K/UL Absolute Lymph Count 0.60 (L) 1.0 - 4.8 K/UL Absolute Monocyte Count 0.60 0 - 0.80 K/UL Absolute Eosinophil Count 0.00 0 - 0.45 K/UL Absolute Basophil Count 0.00 0 - 0.20 K/UL COMPREHENSIVE METABOLIC PANEL Collection Time: 08/30/18 4:41 AM Result Value Ref Range Sodium 136 (L) 137 - 147 MMOL/L Potassium 4.3 3.5 - 5.1 MMOL/L Chloride 101 98 - 110 MMOL/L Glucose 86 70 - 100 MG/DL Blood Urea Nitrogen 31 (H) 7 - 25 MG/DL Creatinine 1.84 (H) 0.4 - 1.24 MG/DL Calcium 9.2 8.5 - 10.6 MG/DL Total Protein 5.9 (L) 6.0 - 8.0 G/DL Total Bilirubin 3.0 (H) 0.3 - 1.2 MG/DL Albumin 3.2 (L) 3.5 - 5.0 G/DL Alk Phosphatase 147 (H) 25 - 110 U/L AST (SGOT) 143 (H) 7 - 40 U/L CO2 26 21 - 30 MMOL/L ALT (SGPT) 18 7 - 56 U/L Anion Gap 9 3 - 12 eGFR Non 37 (L) >60 mL/min eGFR 45 (L) >60 mL/min MAGNESIUM Collection Time: 08/30/18 4:41 AM Result Value Ref Range Magnesium 2.4 1.6 - 2.6 mg/dL PROTIME INR (PT) Collection Time: 08/30/18 4:41 AM Result Value Ref Range INR 1.1 0.8 - 1.2 ALPHA FETO PROTEIN (AFP) Collection Time: 08/30/18 4:41 AM Result Value Ref Range Alpha Feto Protein 31,677.0 (H) 0.0 - 15.0 NG/ML CA19.9 Collection Time: 08/30/18 4:41 AM Result Value Ref Range CA 19-9 51 (H) <35 U/ml CEA(CARCINOEMBRYONIC AG) Collection Time: 08/30/18 4:41 AM Result Value Ref Range CEA 4.7 (H) <3.0 NG/ML HEPATITIS B CORE AB TOT (IGG+IGM) Collection Time: 08/30/18 4:41 AM Result Value Ref Range Anti HBc Total NEG HEPATITIS B SURFACE AG Collection Time: 08/30/18 4:41 AM Result Value Ref Range HBsAg NEG NEG-NEG Point of Care Testing (Last 24 hours) Radiology and other Diagnostics Review: Pertinent radiology reviewed. Associated attestation - Vinnie Quinones MD - 08/30/2018 3:22 PM CDT ATTESTATION I personally performed the zabala portions of the E/M visit, discussed case with re sident and concur with resident documentation of history, physical exam, assessm ent, and treatment plan unless otherwise noted. Liver Decompensation - appreciate hepatology input - agree with viral testing Liver Mass - Possible HCC - discussed risk benefit with oncology and given elevated CEA it is likely this is HCC, no bx needed Hypotension - agree with midodrine - vascularly deplete from liver dz FAINA - pt's baseline is normal to 1.2, per outside records - pt now with acute rise likely from hypoperfusion - monitor with addition of midodrine Ascites - s/p large volume tap PVT - no AC Hx of Lymphoma - pt receives care at [facility] - I fear that medically pt may not be a true candidate for any kind of therapy i n regards to his cancer - will discuss with pt's primary oncologist Staff name: Vinnie Quinones MD Date: 08/30/2018 * Sofy Sanchez APRN - 08/30/2018 8:03 AM CDT General Progress Note Name: Liudmila Sam Today's Date: 08/30/2018 Admission Date: 08/28/2018 LOS: 2 days Assessment/Plan: Active Problems: Hypotension Liudmila Sam is a 67 yr old male admitted from Dr. Lyons's clinic 08/28 where patient had been referred for second opinion of his cancer diagnosis. He was adm itted for hypotension and large ascites. Hepatology is consulted for findings of portal vein thrombosis and suspected HCC. He has history of arthritis, skin can cer, hypertension and lymphoma Cirrhosis likely sec to HCV, h/o heavy alcohol use MELD-Na score: 18 at 08/30/2018 4:41 AM MELD score: 17 at 08/30/2018 4:41 AM Calculated from: Serum Creatinine: 1.84 MG/DL at 08/30/2018 4:41 AM Serum Sodium: 136 MMOL/L at 08/30/2018 4:41 AM Total Bilirubin: 3.0 MG/DL at 08/30/2018 4:41 AM INR(ratio): 1.1 at 08/30/2018 4:41 AM Age: 67 years - h/o HCV, treated with Harvoni by the [facility] in [place], per patient, achieved SV R - FU pending labs, HCV PCR, HBVc Ab total, HBVs Ag Liver mass concerning for HCC Omental thickening and studding - staging PET for lymphoma 06/02/18 showed a large central right lobe liver mass, lymphadenopathy in the chest, abdomen and subcutaneous nodules in the flanks as well as peritoneum and omentum - CT scan 06/12/2018 at OSH revealed cirrhotic liver with ill-defined low-density right lobe liver mass measuring 6.7 cm with anterior branch right portal vein t hrombus due to tumor involvement, moderate ascites, infiltration of omentum and nodularity suspicious for peritoneal carcinomatosis - Ca 19-9 51 - CEA 4.7 - AFP 31,677 <-- 4/2 >20,000 - FU cytology from paracentesis Fluid management - massive ascites, no h/o paracentesis, removed 11L fluid, received appropriate albumin replacement, no evidence of SBP, FU fluid studies, cytology - LE edema with erythema bilat LE - 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 diuretics on hold given hypotension - low sodium diet Renal - FAINA, unclear baseline Cr - Cr 1.55 <-- 1.81 - 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 diuretics on hold given hypotension, BP 70-80/40-50s Hypotension - in setting of cirrhosis, volume depletion - holding 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 diuretics and Lisinopril - increase Midodrine to 15mg TID - give 1L 5% albumin h/o follicular grade 1 non-Hodgkin's lymphoma, clinically stage III Right parotid mass Multiple seborrheic keratosis Reported skin cancer/melanoma Lung nodule, unclear etiology, metastasis from know malignancy vs primary lesion Patient discussed with Dr. Claros. Hepatology plan discussed with primary team. Subjective Liudmila Sam is a 67 y.o. male OOB, ambulating in room. Denies new concerns overnight. Slept well in between VS for hypotension. He continues to feel relief after paracentesis yesterday, does not think the fluid is reaccumulating. Denies fever, SOB, CP, dizziness, lightheaded, abd pain, n/v.. BM yesterday AM. Not a ble to eat and drink before liver biopsy which he says is scheduled at 4p today. Medications Scheduled Meds: acetaminophen (TYLENOL) tablet 650 mg 650 mg Oral ONCE dextran 70/hypromellose (NATURAL BALANCE TEARS) 0.1/0.3 % ophthalmic solution 1- 2 drop 1-2 drop Both Eyes TID melatonin tablet 3 mg 3 mg Oral QHS midodrine (PROAMATINE) tablet 10 mg 10 mg Oral TID (10-30-16) nicotine (NICODERM CQ STEP 2) 14 mg/day patch 1 patch 1 patch Transdermal QDAY Continuous Infusions: PRN and Respiratory Meds:methylcellulose PRN, ondansetron (ZOFRAN) IV Q6H PRN Objective: Vital Signs: Last Filed Vital Signs: 24 Lindy r Range BP: 80/43 (08/31 643) Temp: 36.6 C (97.8 F) (08/30 525) Pulse: 68 (08/30 525) Respirations: 14 PER MINUTE (08/30 525) SpO2: 94 % (08/30 525) O2 Delivery: None (Room Air) (08/30 525) SpO2 Pulse: 79 (08/29 1200) Height: 182.9 cm (72") (08/29 08) BP: (70-109)/(41-63) Temp: [36.3 C (97.3 F)-36.7 C (98.1 F)] Pulse: [0-88] Respirations: [14 PER MINUTE-30 PER MINUTE] SpO2: [89 %-97 %] O2 Delivery: None (Room Air) Intensity Pain Scale (Self Report): Asleep (08/29/18 1600) Vitals: 08/28/186 08/29/18 0841 Weight: 107.7 kg (237 lb 7 oz) 107.5 kg (237 lb) Intake/Output Summary: (Last 24 hours) Intake/Output Summary (Last 24 hours) at 08/30/2018 0803 Last data filed at 08/30/2018 0530 Gross per 24 hour Intake 360 ml Output 14442 ml Net -16914 ml Stool Occurrence: 0 Physical Exam Gen: alert, oriented, in no distress HEENT: NCAT, palpable area of erythematous swelling/firmness on right neck, + s cleral icterus Resp: CTAB, non labored at rest, RA CV: RRR, 3+ bilat LE pitting edema Abd: soft, obese, mildly distended, flank edema, BS+ Ext: erythema and swelling to bilat LE, skin dry cracking Skin: multiple scattered lesions, over back, chest, right leg, top of head; scat tered bruising Neuro: non focal exam, no asterixis Psych: pleasant affect, cooperative, mood stable Lab Review 24-hour labs: Results for orders placed or performed during the hospital encounter of 08/28/18 (from the past 24 hour(s)) CELL COUNT W/DIFF-FLUIDS Collection Time: 08/29/18 10:04 AM Result Value Ref Range White Blood Cells,Fluid 540 /UL Red Blood Cells,Fluid 2,700 /UL Segmented Neutrophils, Fluid 3 % Lymphocytes,Fluid 50 % Monocyte/Histo,Fluid 41 % Eosinophils, Fluid 6 % Fluid Source PERITONEAL FLUID Pathology Interpretation,Fluid Pathologist Signature PERITONEAL FLUID ALBUMIN Collection Time: 08/29/18 10:04 AM Result Value Ref Range Peritoneal Fluid Albumin <1.5 g/dL PERITONEAL FLUID TOTAL PROTEIN Collection Time: 08/29/18 10:04 AM Result Value Ref Range Peritoneal Fluid Total Protein <1.5 g/dL CULTURE-WOUND/TISSUE/FLUID(AEROBIC ONLY)W/SENSITIVITY Collection Time: 08/29/18 10:04 AM Result Value Ref Range Battery Name ROUTINE CULTURE Specimen Description PERITONEAL FLUID Special Requests NONE Direct Gram Stain RARE NEUTROPHILS FEW RBC'S NO ORGANISMS SEEN Culture Report Status GRAM STAIN Collection Time: 08/29/18 10:04 AM Result Value Ref Range Battery Name GRAM STAIN Specimen Description PERITONEAL FLUID Special Requests NONE Gram Stain RARE NEUTROPHILS FEW RBC'S NO ORGANISMS SEEN Report Status FINAL 08/29/2018 CBC Collection Time: 08/29/18 3:00 PM Result Value Ref Range White Blood Cells 4.3 (L) 4.5 - 11.0 K/UL RBC 5.00 4.4 - 5.5 M/UL Hemoglobin 15.4 13.5 - 16.5 GM/DL Hematocrit 45.8 40 - 50 % MCV 91.5 80 - 100 FL MCH 30.7 26 - 34 PG MCHC 33.6 32.0 - 36.0 G/DL RDW 18.9 (H) 11 - 15 % Platelet Count 128 (L) 150 - 400 K/UL MPV 11.0 7 - 11 FL PTT (APTT) Collection Time: 08/29/18 3:00 PM Result Value Ref Range APTT 31.5 24.0 - 36.5 SEC PTT (APTT) Collection Time: 08/29/18 11:10 PM Result Value Ref Range APTT >200.0 (HH) 24.0 - 36.5 SEC CBC AND DIFF Collection Time: 08/30/18 4:41 AM Result Value Ref Range White Blood Cells 3.6 (L) 4.5 - 11.0 K/UL RBC 5.23 4.4 - 5.5 M/UL Hemoglobin 16.1 13.5 - 16.5 GM/DL Hematocrit 48.2 40 - 50 % MCV 92.2 80 - 100 FL MCH 30.7 26 - 34 PG MCHC 33.3 32.0 - 36.0 G/DL RDW 18.3 (H) 11 - 15 % Platelet Count 97 (L) 150 - 400 K/UL MPV 10.5 7 - 11 FL Neutrophils 66 41 - 77 % Lymphocytes 16 (L) 24 - 44 % Monocytes 16 (H) 4 - 12 % Eosinophils 1 0 - 5 % Basophils 1 0 - 2 % Absolute Neutrophil Count 2.40 1.8 - 7.0 K/UL Absolute Lymph Count 0.60 (L) 1.0 - 4.8 K/UL Absolute Monocyte Count 0.60 0 - 0.80 K/UL Absolute Eosinophil Count 0.00 0 - 0.45 K/UL Absolute Basophil Count 0.00 0 - 0.20 K/UL COMPREHENSIVE METABOLIC PANEL Collection Time: 08/30/18 4:41 AM Result Value Ref Range Sodium 136 (L) 137 - 147 MMOL/L Potassium 4.3 3.5 - 5.1 MMOL/L Chloride 101 98 - 110 MMOL/L Glucose 86 70 - 100 MG/DL Blood Urea Nitrogen 31 (H) 7 - 25 MG/DL Creatinine 1.84 (H) 0.4 - 1.24 MG/DL Calcium 9.2 8.5 - 10.6 MG/DL Total Protein 5.9 (L) 6.0 - 8.0 G/DL Total Bilirubin 3.0 (H) 0.3 - 1.2 MG/DL Albumin 3.2 (L) 3.5 - 5.0 G/DL Alk Phosphatase 147 (H) 25 - 110 U/L AST (SGOT) 143 (H) 7 - 40 U/L CO2 26 21 - 30 MMOL/L ALT (SGPT) 18 7 - 56 U/L Anion Gap 9 3 - 12 eGFR Non 37 (L) >60 mL/min eGFR 45 (L) >60 mL/min MAGNESIUM Collection Time: 08/30/18 4:41 AM Result Value Ref Range Magnesium 2.4 1.6 - 2.6 mg/dL PROTIME INR (PT) Collection Time: 08/30/18 4:41 AM Result Value Ref Range INR 1.1 0.8 - 1.2 ALPHA FETO PROTEIN (AFP) Collection Time: 08/30/18 4:41 AM Result Value Ref Range Alpha Feto Protein 31,677.0 (H) 0.0 - 15.0 NG/ML CA19.9 Collection Time: 08/30/18 4:41 AM Result Value Ref Range CA 19-9 51 (H) <35 U/ml CEA(CARCINOEMBRYONIC AG) Collection Time: 08/30/18 4:41 AM Result Value Ref Range CEA 4.7 (H) <3.0 NG/ML Point of Care Testing (Last 24 hours) Radiology and other Diagnostics Review: Pertinent radiology reviewed. Sofy Sanchez APRN Pager [phone] Associated attestation - Ziyad Claros MD - 08/30/2018 11:26 PM CDT ATTESTATION I personally performed the zabala portions of the E/M visit, discussed case with Nu rse Practitioner and concur with documentation of history, physical exam, assess ment, and treatment plan unless otherwise noted. Course reviewed. Patient without new complaints. Blood pressures have been run romulo low with systolic BPs in the 70s to 80s although patient has been asymptoma tic. Denies abdominal pain. Heparin drip has been discontinued. On exam he appears comfortable. Abdomen is soft, mild hepatomegaly but no splen omegaly is present. He has persistent ascites. He has persistent lower extremit y edema. No asterixis. Labs and imaging reviewed white blood cell count 3.6 hemoglobin 16.1 platelet co unt 97 INR 1.1. Sodium 136 creatinine 1.84 up from 1.55 yesterday. Bilirubin 3 .0 AST 143 ALT 18 alkaline phosphatase 147. CA 199 level 51, CEA 4.7, alpha- fetoprotein 31,677. Patient with history of multiple complex issues including history of parotid lym phoma, reported history of multiple melanomas, now with concerns for large infil trative liver mass with portal vein involvement and marked alpha-fetoprotein ren vation consistent with hepatocellular carcinoma. Patient additionally with feat ures of decompensated cirrhosis with large amount of ascites present. Current c oncern has been for ongoing hypotension and volume overload in setting of hepati c decompensation. MELD score is 18 today. Portal vein thrombosis has been ident ified however appears to be tumor related thrombus therefore agree with disconti nuation of heparin. There has been discussion of biopsy of the liver mass to co nfirm hepatocellular carcinoma although with underlying large volume ascites thi s could carry significant risk for bleeding. Overall concern with the patient's comorbidities and overall disease state he would be unlikely to be a candidate for palliative therapy although would defer to oncology team. Recommend IV albu min and increased midodrine for blood pressure support. Patient may benefit fro m palliative care consult given overall poor prognosis and current clinical stat us. Discussed in detail with Dr. Quinones and primary service today. Continue supp ortive care. Staff name: Ziyad Claros MD Date: 08/30/2018 * Tracie Carlson, RN - 08/30/2018 5:40 AM CDT Pt with BP 72/41. Pt asymptomatic. Dr. Pitts notified and orders to give m orning dose of 10mg midodrine early. Will CTM. * Quentin Abernathy DO - 08/29/2018 2:29 PM CDT General Progress Note Name: Liudmila Sam Today's Date: 08/29/2018 Admission Date: 08/28/2018 LOS: 1 day Assessment/Plan: Active Problems: Hypotension Mr. 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 #Cirrhosis #Ascites #Acute Portal Vein Thrombosis - Likely 2/2 to Hep C - HCV tx with Harvoni in past and has never has screening EGD for varices - Abd US Doppler with acute thrombus through the portal V system and cirrhotic a ppearing liver - s/p diagnostic and therapeutic para on 08/29 with reportedly 11 liters taken of f. Fluid SAAG suggestive of Port HTN MELD-Na score: 18 at 08/29/2018 4:17 AM MELD score: 16 at 08/29/2018 4:17 AM Calculated from: Serum Creatinine: 1.55 MG/DL at 08/29/2018 4:17 AM Serum Sodium: 134 MMOL/L at 08/29/2018 4:17 AM Total Bilirubin: 2.9 MG/DL at 08/29/2018 4:17 AM INR(ratio): 1.1 at 08/29/2018 4:17 AM Age: 67 years Plan - Heparin gtt (will d/c at midnight in anticipation of Liver biopsy) - Consult hepatology - f/u ascitic fluid studies - Daily MELD labs - Hold 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 Lasix and Aldactone in setting of hypotension #Hyperbilirubinemia - T bili 3.2 on admission - Suspect 2/2 to hepatic congestion Plan > CTM #Hypotension - Likely 2/2 to volume depletion from third-spacing and underlying liver disease - asx Plan - Hold 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 Lisinopril 20 mg daily - CTM as this has improved #Elevated Cr - Cr 1.81 on admission - Unclear if this is FAINA vs CKD (no prior labs). Suspect component of FAINA from i ntravascular volume depletion and elevated intraabdominal pressures -1.81 on adx - UA without protein, blood - FeNA and FeUrea revealing prerenal physiology Plan - CTM #Liver Mass - Follows with a Dr. Alvarez in [place] who was referred to Dr. Lyons with the sameer ent's first appointment being 08/28/2018 - Staging PET scanfor Lymphomaon 06/02/2018 showed a large central right lobe liver mass which was PET avid with SUV 9.9.FDG avid lymphadenopathy in the chest abdomen and subcutaneous nodules in the flanks as well as peritoneum and o mentum. - Staging CT scan on 06/12/[address] Ponce revealed cirrhotic liver with ill -defined low-density right lobe liver mass measuring 6.7 cm. Moderate ascites. Infiltration of omentum and nodularity suspicious for peritoneal carcinomatos is. - AFP greater than 20,000 on 06/20/2018. Plan - Liver bx tomorrow #Hx of Parotid Lymphoma - Dx on 04/09/18 - Follows with Dr. Alvarez in [place] at the [facility] - PET scan from 06/06/2018 with possible metastatic lymphoma multifocal in distri bution to neck, abdomen, and chest (including liver, omentum and peritoneum) #Tobacco Use Disorder - Nicotine patch FEN: No IVF, Replete prn, Low Na diet with NPO at midnight DVT: Heparin GTT Code: Full Dispo: Continue admit to Oncology Patient discussed with Dr. Quinones Subjective Liudmila Sam is a 67 y.o. male. Patient seen after para and states he feels much better. He states he feels a little whoozy when he gets up. When asked to describe, he denies lightheadedness or dizziness, but states he feels off balanc e with all the fluid that was taken off his belly. He denies f/c, chest pain and states his SOB is significantly improved. He denies any n/v, but admits to lower abdominal pain. Denies constipation, diarrhea, melena, or hematochezia. Medications Scheduled Meds: acetaminophen (TYLENOL) tablet 650 mg 650 mg Oral ONCE dextran 70/hypromellose (GENTEAL TEARS; BION TEARS) ophthalmic solution 1-2 drop 1-2 drop Both Eyes TID heparin (porcine) BOLUS for continuous inf (bag) 8,600 Units 80 Units/kg Intrave nous ONCE And heparin (porcine) BOLUS for continuous inf (bag) 2,150-4,300 Units 20-40 Units/k g Intravenous As Prescribed nicotine (NICODERM CQ STEP 2) 14 mg/day patch 1 patch 1 patch Transdermal QDAY Continuous Infusions: heparin (porcine) 20,000 units/D5W 500 mL infusion (std conc)(premade) PRN and Respiratory Meds:methylcellulose PRN, ondansetron (ZOFRAN) IV Q6H PRN Review of Systems: A 14 point review of systems was negative except for what is described above Objective: Vital Signs: Last Filed Vital Signs: 24 Lindy r Range BP: 88/54 (08/29 121) Temp: 36.3 C (97.3 F) (08/29 1216) Pulse: 84 (08/29 1230) Respirations: 18 PER MINUTE (08/29 1216) SpO2: 95 % (08/29 1216) O2 Delivery: None (Room Air) (08/29 121) SpO2 Pulse: 79 (08/29 1200) Height: 182.9 cm (72") (08/29 0841) BP: (70-114)/(43-65) Temp: [36.3 C (97.3 F)-36.7 C (98.1 F)] Pulse: [0-89] Respirations: [16 PER MINUTE-30 PER MINUTE] SpO2: [89 %-98 %] O2 Delivery: None (Room Air) Intensity Pain Scale (Self Report): 8 (08/29/18 1230) Vitals: 08/28/18 2026 08/29/18 0841 Weight: 107.7 kg (237 lb 7 oz) 107.5 kg (237 lb) Intake/Output Summary: (Last 24 hours) Intake/Output Summary (Last 24 hours) at 08/29/2018 1430 Last data filed at 08/29/2018 1336 Gross per 24 hour Intake 640 ml Output 48888 ml Net -50201 ml Stool Occurrence: 0 Physical Exam General: Alert, cooperative, no distress, appears stated age Eyes: Conjunctivae/corneas clear. PERRL, EOMs intact. Neck: Supple, symmetrical, trachea midline, no adenopathy, thyroid: no enlargem ent/tenderness/nodules, no carotid bruit and no JVD Lungs: Clear to auscultation bilaterally Heart: Regular rate and rhythm, S1, S2 normal, no murmur, click rub or gallop Abdomen: Soft, distended, mild ttp, diffusely worse in the lower abdomen. Renzo l sounds normal. No masses. No organomegaly. Extremities: Extremities normal, atraumatic, no cyanosis, severe pitting edema in LE Peripheral pulses: 2+ and symmetric, all extremities Skin: Skin color, texture, turgor normal. No rashes or lesions Neurologic: CNII - XII intact. Normal strength, sensation throughout. Psych: Appropriate Lab Review 24-hour labs: Results for orders placed or performed during the hospital encounter of 08/28/18 (from the past 24 hour(s)) CBC AND DIFF Collection Time: 08/28/18 6:55 PM Result Value Ref Range White Blood Cells 4.3 (L) 4.5 - 11.0 K/UL RBC 5.44 4.4 - 5.5 M/UL Hemoglobin 17.2 (H) 13.5 - 16.5 GM/DL Hematocrit 49.2 40 - 50 % MCV 90.5 80 - 100 FL MCH 31.5 26 - 34 PG MCHC 34.8 32.0 - 36.0 G/DL RDW 18.1 (H) 11 - 15 % Platelet Count 136 (L) 150 - 400 K/UL MPV 10.5 7 - 11 FL Segmented Neutrophils 80 (H) 41 - 77 % Bands 1 0 - 10 % Lymphocytes 8 (L) 24 - 44 % Monocytes 9 4 - 12 % Eosinophil 1 0 - 5 % Basophil 1 0 - 2 % ANISO PRESENT POIK PRESENT POLY PRESENT Ovalocyte PRESENT Platelet Estimate SLT DEC Absolute Neutrophil Count Manual 3.48 1.8 - 7.0 K/UL COMPREHENSIVE METABOLIC PANEL Collection Time: 08/28/18 6:55 PM Result Value Ref Range Sodium 134 (L) 137 - 147 MMOL/L Potassium 4.5 3.5 - 5.1 MMOL/L Chloride 98 98 - 110 MMOL/L Glucose 90 70 - 100 MG/DL Blood Urea Nitrogen 30 (H) 7 - 25 MG/DL Creatinine 1.81 (H) 0.4 - 1.24 MG/DL Calcium 9.3 8.5 - 10.6 MG/DL Total Protein 6.8 6.0 - 8.0 G/DL Total Bilirubin 3.2 (H) 0.3 - 1.2 MG/DL Albumin 3.3 (L) 3.5 - 5.0 G/DL Alk Phosphatase 203 (H) 25 - 110 U/L AST (SGOT) 197 (H) 7 - 40 U/L CO2 25 21 - 30 MMOL/L ALT (SGPT) 27 7 - 56 U/L Anion Gap 11 3 - 12 eGFR Non 38 (L) >60 mL/min eGFR 45 (L) >60 mL/min PROTIME INR (PT) Collection Time: 08/28/18 6:55 PM Result Value Ref Range INR 1.1 0.8 - 1.2 LACTIC ACID(LACTATE) Collection Time: 08/28/18 6:55 PM Result Value Ref Range Lactic Acid 2.0 0.5 - 2.0 MMOL/L MAGNESIUM Collection Time: 08/28/18 6:55 PM Result Value Ref Range Magnesium 2.5 1.6 - 2.6 mg/dL PHOSPHORUS Collection Time: 08/28/18 6:55 PM Result Value Ref Range Phosphorus 4.0 2.0 - 4.5 MG/DL BILIRUBIN, DIRECT Collection Time: 08/28/18 6:55 PM Result Value Ref Range Bilirubin, Direct 0.7 (H) <0.4 MG/DL URINALYSIS DIPSTICK Collection Time: 08/28/18 10:47 PM Result Value Ref Range Color,UA NGUYEN Turbidity,UA CLEAR CLEAR-CLEAR Specific [place]-Urine 1.015 1.003 - 1.035 pH,UA 5.0 5.0 - 8.0 Protein,UA NEG NEG-NEG Glucose,UA NEG NEG-NEG Ketones,UA NEG NEG-NEG Bilirubin,UA NEG NEG-NEG Blood,UA NEG NEG-NEG Urobilinogen,UA INCREASED (A) NORM-NORMAL Nitrite,UA NEG NEG-NEG Leukocytes,UA NEG NEG-NEG Urine Ascorbic Acid, UA NEG NEG-NEG URINALYSIS, MICROSCOPIC Collection Time: 08/28/18 10:47 PM Result Value Ref Range WBCs,UA 0-2 0 - 2 /HPF RBCs,UA 0-2 0 - 3 /HPF MucousUA TRACE Squamous Epithelial Cells 0-2 0 - 5 Hyaline Cast PACKED SODIUM-URINE RANDOM Collection Time: 08/28/18 10:47 PM Result Value Ref Range Sodium, Random 22 MMOL/L CREATININE-URINE RANDOM Collection Time: 08/28/18 10:47 PM Result Value Ref Range Creatinine, Random 254 MG/DL UREA NITROGEN-URINE RANDOM Collection Time: 08/28/18 10:47 PM Result Value Ref Range Urea Nitrogen 597 MG/DL CBC AND DIFF Collection Time: 08/29/18 4:17 AM Result Value Ref Range White Blood Cells 3.4 (L) 4.5 - 11.0 K/UL RBC 4.76 4.4 - 5.5 M/UL Hemoglobin 14.8 13.5 - 16.5 GM/DL Hematocrit 43.1 40 - 50 % MCV 90.6 80 - 100 FL MCH 31.1 26 - 34 PG MCHC 34.3 32.0 - 36.0 G/DL RDW 18.4 (H) 11 - 15 % Platelet Count 109 (L) 150 - 400 K/UL MPV 9.7 7 - 11 FL Neutrophils 71 41 - 77 % Lymphocytes 11 (L) 24 - 44 % Monocytes 16 (H) 4 - 12 % Eosinophils 1 0 - 5 % Basophils 1 0 - 2 % Absolute Neutrophil Count 2.40 1.8 - 7.0 K/UL Absolute Lymph Count 0.40 (L) 1.0 - 4.8 K/UL Absolute Monocyte Count 0.50 0 - 0.80 K/UL Absolute Eosinophil Count 0.00 0 - 0.45 K/UL Absolute Basophil Count 0.00 0 - 0.20 K/UL COMPREHENSIVE METABOLIC PANEL Collection Time: 08/29/18 4:17 AM Result Value Ref Range Sodium 134 (L) 137 - 147 MMOL/L Potassium 4.0 3.5 - 5.1 MMOL/L Chloride 102 98 - 110 MMOL/L Glucose 95 70 - 100 MG/DL Blood Urea Nitrogen 30 (H) 7 - 25 MG/DL Creatinine 1.55 (H) 0.4 - 1.24 MG/DL Calcium 8.8 8.5 - 10.6 MG/DL Total Protein 5.7 (L) 6.0 - 8.0 G/DL Total Bilirubin 2.9 (H) 0.3 - 1.2 MG/DL Albumin 2.7 (L) 3.5 - 5.0 G/DL Alk Phosphatase 178 (H) 25 - 110 U/L AST (SGOT) 154 (H) 7 - 40 U/L CO2 24 21 - 30 MMOL/L ALT (SGPT) 21 7 - 56 U/L Anion Gap 8 3 - 12 eGFR Non 45 (L) >60 mL/min eGFR 54 (L) >60 mL/min MAGNESIUM Collection Time: 08/29/18 4:17 AM Result Value Ref Range Magnesium 2.3 1.6 - 2.6 mg/dL PROTIME INR (PT) Collection Time: 08/29/18 4:17 AM Result Value Ref Range INR 1.1 0.8 - 1.2 PERITONEAL FLUID ALBUMIN Collection Time: 08/29/18 10:04 AM Result Value Ref Range Peritoneal Fluid Albumin <1.5 g/dL PERITONEAL FLUID TOTAL PROTEIN Collection Time: 08/29/18 10:04 AM Result Value Ref Range Peritoneal Fluid Total Protein <1.5 g/dL Point of Care Testing (Last 24 hours) Radiology and other Diagnostics Review: Pertinent radiology reviewed. Associated attestation - Vinnie Quinones MD - 08/29/2018 9:55 PM CDT ATTESTATION I personally performed the zabala portions of the E/M visit, discussed case with re sident and concur with resident documentation of history, physical exam, assessm ent, and treatment plan unless otherwise noted. Liver Decompensation - appreciate hepatology input - agree with viral testing Liver Mass - Possible HCC - will discuss transjugular bx with IR Hypotension - agree with midodrine FAINA - unclear baseline - midodrine will help if 2/2 poor perfusion Ascites - s/p large volume tap PVT - stop heparin per GI (Ordered) - agree with this Hx of Lymphoma - pt receives care at [facility] - hold chemical ppx due to possible bx (Ordered) Dispo - reassess for bx in am - plan is for bx and then d/c home if doing well Staff name: Vinnie Quinones MD Date: 08/29/2018 * Krystal Tobar, TROY - 08/29/2018 11:33 AM CDT Patient attempted to use the bathroom after he could get up after paracentesis p rocedure. Patient stated " I tried to go but nothing came out." * Ebonie Barrientos RN - 08/29/2018 10:38 AM CDT 08/29/18 1034 Vitals BP (!) 89/52 Per Lucy, okay to continue draining ascites fluid off. Please check BPs after each bottle drained. And if BPs decrease to 70s again, administer 250mL saline b olus again and continue to monitor. * Ebonie Barrientos RN - 08/29/2018 10:27 AM CDT 08/29/18 1015 08/29/18 1016 08/29/18 1020 Vitals BP (!) 77/48 (!) 74/46 (!) 70/43 Notified Lucy Lawson NP of declining BPs. Paracentesis procedure paused. Albumi n infusing per protocol. Per Lucy, give saline bolus of 250mL then recheck. Se e MAR. * Krystal Tobar RN - 08/29/2018 8:19 AM CDT Patient informed of IR procedure and post procedure plan. All questions answered . Patient verbalized understanding. * Melquiades Brantley RT - 08/28/2018 8:26 PM CDT RT Adult Assessment Note NAME:Liudmila Sam :1950 AGE: 67 y.o. ADMISSION DATE: 08/28/2018 DAYS ADMITTED: LOS: 0 days RT Treatment Plan: Additional Comments: Impressions of the patient: Patient in no distress. Intervention(s)/outcome(s): Criteria Not Met. Patient education that was completed: None Recommendations to the care team: None Vital Signs: Pulse: 80 RR: 16 PER MINUTE SpO2: 98 % O2 Device: Liter Flow: O2%: 21 % Breath Sounds: Clear (implies normal) Respiratory Effort: Non-Labored * Cristy Mazariegos RN - 08/28/2018 8:00 PM CDT Patient arrived to room # ([place] [address]) via wheelchair accompanied by transport. Pa tient transferred to the chair without assistance. Bedside safety checks complet ed. Initial patient assessment completed. Refer to flowsheet for details. Admission skin assessment completed with: Daisy Yoo RN Pressure injury present on arrival?: No 1. Head/Face/Neck: No 2. Trunk/Back: No 3. Upper Extremities: No 4. Lower Extremities: No 5. Pelvic/Coccyx: No 6. Assessed for device associated injury? Yes 7. Malnutrition Screening Tool (Nursing Nutrition Assessment) Completed? Yes See Doc Flowsheet for additional wound details. documented in this encounter H&P Notes * Charles Burden DO - 08/28/2018 5:20 PM CDT Admission History and Physical Examination Name: Liudmila Sam 4 Admission Date: 08/28/2018 Assessment/Plan: Active Problems: Hypotension Mr. 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 #Cirrhosis #Ascites - Likely 2/2 to Hep C - HCV tx with Harvoni in past - Never has screening EGD for varices - Never had paracentesis Plan - Abd U/S to evaluate for PVT - Will obtain diagnostic and therapeutic paracentesis - Daily MELD labs - Hold 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 Lasix and Aldactone in setting of hypotension #Hyperbilirubinemia - T bili 3.2 on admission - Suspect 2/2 to hepatic congestion Plan - Will differentiate #Hypotension - Likely 2/2 to volume depletion from third-spacing and underlying liver disease Plan - Hold 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 Lisinopril 20 mg daily - Obtain blood cx x2. Hold off on abx at this time as patient does not have s/s of infection. Low threshold to cover for SBP #Elevated Cr - Cr 1.81 on admission - Unclear if this is FAINA vs CKD (no prior labs). Suspect component of FAINA from i ntravascular volume depletion and elevated intraabdominal pressures Plan - Urine lytes - UA - Renal U/S #Liver Mass - Follows with a Dr. Alvarez in [place] who was referred to Dr. Lyons with the the medical center ent's first appointment being 08/28/2018 - Staging PET scan for Lymphoma on 06/02/2018 showed a large central right lobe l iver mass which was PET avid with SUV 9.9. FDG avid lymphadenopathy in the ches t abdomen and subcutaneous nodules in the flanks as well as peritoneum and oment um. - Staging CT scan on 06/12/[address] Ponce revealed cirrhotic liver with ill -defined low-density right lobe liver mass measuring 6.7 cm. Moderate ascites. Infiltration of omentum and nodularity suspicious for peritoneal carcinomatosis. - AFP greater than 20,000 on 06/20/2018. Plan - Will need eval to determine exact pathology when stabilized #Hx of Parotid Lymphoma - Dx on 04/09/18 - Follows with Dr. Alvarez in [place] at the [facility] - PET scan from 06/06/2018 with possible metastatic lymphoma multifocal in distri bution to neck, abdomen, and chest (including liver, omentum and peritoneum) #Tobacco Use Disorder - Nicotine patch FEN: IVF as above, Replete prn, Low Na diet DVT: Plan to initiate after paracentesis Code: Full Dispo: Admit to Oncology Patient discussed with Dr. Leahy. Charles Burden DO MS Internal Medicine, PGY-2 Pager [phone] __ Primary Care Physician: Mary Ellen Alvarez Verified Chief Complaint: Hypotension History of Present Illness: Liudmila Sam is a 67 y.o. male with a past medic al history of hepatitis C status post treatment with Harvoni complicated by deve lopment of cirrhosis, parotid lymphoma, hypertension, and undiagnosed liver mass who presents from oncology clinic for evaluation of hypotension. The patient reports that in approximately January 2018 he began to notice abdom inal distention. That subsequently progressed to bilateral lower extremity rosie a in March 2018. He was evaluated and diagnosed with parotid lymphoma in 2018. Staging scans showed a cirrhotic liver with liver mass and was subseque ntly referred to oncology here at . He has not received any treatment for his lymphoma. He was treated with Harvoni for his hepatitis C he thinks approximat jeremy 2 years ago. The patient states that his swelling has been getting worse re cently. He does not weigh himself daily so he is unsure of what his normal weig ht is but knows that he is heavier than normal. He does note that he was on diu retics at one point but recently ran out of them. He denies any fevers or chills . He denies any lightheadedness or dizziness upon standing. He does have nausea but no episodes of vomiting. He has early satiety due to his abdominal distenti on and consequently poor po intake. He reports shortness of breath and a cough when lying supine. He denies any diarrhea or blood in stool. He denies any dif ficulty with urination. Medical History: Diagnosis Date Arthritis Cancer of skin Hearing reduced Hypertension Liver cancer (HCC) Lymphoma (HCC) Vision decreased Surgical History: Procedure Laterality Date COLONOSCOPY HX APPENDECTOMY LYMPH NODE BIOPSY MOHS SURGERY Family history reviewed; non-contributory Social History Tobacco Use Smoking status: Current Every Day Smoker Packs/day: 0.50 Types: Cigarettes Smokeless tobacco: Never Used Substance and Sexual Activity Alcohol use: Never Frequency: Never Drug use: Never Sexual activity: Not on file Immunizations (includes history and patient reported): There is no immunization history on file for this patient. Allergies: Aspirin; Seasonal allergies; and Tylenol [acetaminophen] Medications: Medications Prior to Admission Medication Sig Carboxymethylcellulose Sodium 0.25 % dpet Bedtime cetirizine (ZYRTEC) 10 mg tablet Take 10 mg by mouth every morning. HYDROcodone/acetaminophen (NORCO) 5/325 mg tablet 325 tablets lisinopril (PRINIVIL; ZESTRIL) 20 mg tablet 20 mg. PEG 400-Propylene Glycol 0.4-0.3 % dpet Three Times A Day Review of Systems: CONSTITUTIONAL: No fever. No chills. EYES: No pain. No erythema. No blurred vision ENT: No ear pain. No rhinorrhea. No sore throat CARDIOVASCULAR: No chest pain. No palpitations. + lower extremity edema. + ortho pnea RESPIRATORY: + shortness of breath. + cough. No sputum production. No hemoptysis GASTROINTESTINAL: No abdominal pain. Decreased appetite. + nausea. No vomiting. No diarrhea. No constipation. No hematemesis. No hematochezia. No melena. GENITOURINARY: No frequency. No urgency. No dysuria. No hematuria MUSCULOSKELETAL: No arthralgias. No myalgias. HEMATOLOGICAL: No bleeding. No bruising. + LAD NEUROLOGIC: No headache. + weakness. No numbness or tingling of the extremities. PSYCHIATRIC: No confusion. Physical Exam: Vital Signs: Last Filed In 24 Hours Vital Signs: 24 Hour Range BP: 87/44 (08/28 1619) Temp: 36.3 C (97.4 F) (08/28 155) Pulse: 88 (08/28 1556) SpO2: 96 % (08/28 1556) BP: (84-88)/(44-48) Temp: [36.3 C (97.4 F)] Pulse: [88] SpO2: [96 %] GENERAL: Alert and oriented. In no apparent distress. HEENT: Normocephalic and atraumatic. EOMI. PERRLA. NECK: Supple. No carotid bruits.+ submandibular LAD LUNGS: Clear to auscultation bilaterally. HEART: Regular rate and rhythm without murmur, rub or gallop ABDOMEN: Soft, nontender. + Distension with fluid wave. Minimal bowel sounds. EXTREMITIES: 3+ BLE edema, No clubbing, no cyanosis. Radial and DP 2+ B/L NEUROLOGIC: Cranial nerves II-XII are grossly intact. PSYCHIATRIC: Normal mood and affect SKIN: + Brown growths that appear stuck on. Palmar erythema noted Lab/Radiology/Other Diagnostic Tests: 24-hour labs: Results for orders placed or performed during the hospital encounter of 08/28/18 (from the past 24 hour(s)) CBC AND DIFF Collection Time: 08/28/18 6:55 PM Result Value Ref Range White Blood Cells 4.5 - 11.0 K/UL RBC 4.4 - 5.5 M/UL Hemoglobin 13.5 - 16.5 GM/DL Hematocrit 40 - 50 % MCV 80 - 100 FL MCH 26 - 34 PG MCHC 32.0 - 36.0 G/DL RDW 11 - 15 % Platelet Count 150 - 400 K/UL MPV 7 - 11 FL COMPREHENSIVE METABOLIC PANEL Collection Time: 08/28/18 6:55 PM Result Value Ref Range Sodium 134 (L) 137 - 147 MMOL/L Potassium 4.5 3.5 - 5.1 MMOL/L Chloride 98 98 - 110 MMOL/L Glucose 90 70 - 100 MG/DL Blood Urea Nitrogen 30 (H) 7 - 25 MG/DL Creatinine 1.81 (H) 0.4 - 1.24 MG/DL Calcium 9.3 8.5 - 10.6 MG/DL Total Protein 6.8 6.0 - 8.0 G/DL Total Bilirubin 3.2 (H) 0.3 - 1.2 MG/DL Albumin 3.3 (L) 3.5 - 5.0 G/DL Alk Phosphatase 203 (H) 25 - 110 U/L AST (SGOT) 197 (H) 7 - 40 U/L CO2 25 21 - 30 MMOL/L ALT (SGPT) 27 7 - 56 U/L Anion Gap 11 3 - 12 eGFR Non 38 (L) >60 mL/min eGFR 45 (L) >60 mL/min LACTIC ACID(LACTATE) Collection Time: 08/28/18 6:55 PM Result Value Ref Range Lactic Acid 2.0 0.5 - 2.0 MMOL/L MAGNESIUM Collection Time: 08/28/18 6:55 PM Result Value Ref Range Magnesium 2.5 1.6 - 2.6 mg/dL PHOSPHORUS Collection Time: 08/28/18 6:55 PM Result Value Ref Range Phosphorus 4.0 2.0 - 4.5 MG/DL Pertinent radiology reviewed. Charles Burden DO Associated attestation - Vinnie Quinones MD - 08/29/2018 9:49 PM CDT ATTESTATION I reviewed the history and exam documented by the resident last night. Please s ee my additional notes for documentation of my exam, assessment and plan. Staff name: Vinnie Quinones MD Date: 08/29/2018 documented in this encounter Consult Notes * Vik Jeronimo MD - 09/04/2018 10:31 AM CDT Associated Order(s): CONSULT UROLOGY PHYSICIAN [facility] Urology Consult 09/04/2018 Patient: Liudmila Sam Admission Date: 08/28/2018, LOS: 7 days Admission Diagnosis: Hypotension [I95.9] ASSESSMENT: 67 y.o. 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 Urology was consulted for new onset dysuria. PLAN: -- No acute surgical intervention -- It is difficult to say why exactly he is having this pain but he is clear josue t the pain occurs with bowel movements as well as with urination -- This makes it unlikely that he suffered an isolated injury with straight cath eterization; furthermore, he did not feel that catheterization was overly painfu l -- I explained that urinary retention with bladder spasms can cause both dysuria and pain with bowel movements, however it would be very strange to have no disc omfort in between episodes of stooling and voiding -- There was nothing abnormal on his prostate exam and if he did have BPH and lo wer urinary tract obstruction, it would be odd for him to have no symptoms whats oever before coming to the hospital -- His creatinine has trended in the right direction and his bladder is not edda edly distended on the recent ultrasound, but I did explain that we could place a n indwelling urinary catheter for maximal decompression to see if it helps resol ve his pain, and also that bladder scanning will continue to be somewhat inaccur ate for assessing his post void residual volumes -- At this time, he does not want a catheter to be placed and wants to continue conservative management -- Can continue pyridium and if his blood pressure stabilizes/remains stable, wo uld recommend tamsulosin 0.4 mg daily -- If he were to have an interval longer than 4 hours without urination, would r ecommend placing an indwelling urinary catheter. -- Urology will drop to standby status Discussed with Dr. Wilson who formulated the plan of care. Vik Jeronimo MD Urology PGY3 [phone] Please call urology construction operations manager with questions __ HPI: Liudmila Sam is a 67 y.o. male with past medical history of possible ne w hepatocellular carcinoma diagnosis, known parotid lymphoma, history of hepatit is C, hypertension that presents from oncology clinic for hypotension and dehydr ation on 08/28. He had an FAINA on admission to 1.8 which has trended down to 1.2 a nd was likely due to dehydration. He has cirrhosis and suspicion for new onset hepatocellular carcinoma with a 7 cm liver mass and has undergone two paracentes es which removed 11 and 7 liters each. It appears there was no malignant effusio n based on evaluation of the fluid, however his staging CT for parotid lymphoma on 06/12/18 revealed the liver mass and also suspicion for peritoneal carcinomato sis with an AFP greater than 20k on 06/20/18. Bladder scanning has been inaccurate given the high volume of fluid in his abdom en but have been recorded twice in the chart as 550 and 300. He underwent straig ht catheterization to get a clearer picture of his post void volumes twice, it a ppears 3 days ago, but otherwise has been voiding spontaneously. Reportedly the second catheter was slightly traumatic although there was no report of any blood and urology was not contacted. His voids have been somewhat erratic and he desc ribes very clearly that there was no pain present before the last 4 days or so, however it is not simply dysuria. He reports a steady sequence of feeling an urge to urinate or have a bowel movem ent, and then he will go into the restroom and sit down. He then "has to take ca re of the bowels first", where he will have a small bowel movement, and he says there is a marked pain with having a bowel movement. Once the stool passes, he t hen begins to urinate, but he has to stand up and either void in the shower or o n the floor. There is dysuria with this and then a marked feeling of relief. It is mostly a trickle of urine to begin with but then he describes a full stream a t times. He does feel like he is emptying his bladder, it is just in this somewh at strange sequence every time. Medical History: Diagnosis Date Arthritis Cancer of skin Hearing reduced Hypertension Liver cancer (HCC) Lymphoma (HCC) Vision decreased Surgical History: Procedure Laterality Date COLONOSCOPY HX APPENDECTOMY LYMPH NODE BIOPSY MOHS SURGERY Medications: No current facility-administered medications on file prior to encounter. Current Outpatient Medications on File Prior to Encounter Medication Sig Dispense Refill Carboxymethylcellulose Sodium 1 % dlgl Apply 1 drop to both eyes at bedtime daily. cetirizine (ZYRTEC) 10 mg tablet Take 10 mg by mouth every morning. furosemide (LASIX) 20 mg tablet Take 20 mg by mouth every morning. lisinopril (PRINIVIL; ZESTRIL) 20 mg tablet 20 mg. potassium chloride (K-TAB) 20 mEq tablet Take 20 mEq by mouth daily. Take wi th a meal and a full glass of water. spironolactone (ALDACTONE) 25 mg tablet Take 25 mg by mouth twice daily. Reg e with food. Allergies: Aspirin; Seasonal allergies; and Tylenol [acetaminophen] Social History Socioeconomic History Marital status: Single Spouse name: Not on file Number of children: Not on file Years of education: Not on file Highest education level: Not on file Occupational History Not on file Tobacco Use Smoking status: Current Every Day Smoker Packs/day: 0.50 Types: Cigarettes Smokeless tobacco: Never Used Substance and Sexual Activity Alcohol use: Never Frequency: Never Drug use: Never Sexual activity: Not on file Other Topics Concern Not on file Social History Narrative Not on file No family history on file. Vitals: Vital Signs: Last Filed In 24 Hours Vital Signs: 24 Hour Range BP: 127/60 (09/04 1023) Temp: 36.3 C (97.4 F) (09/04 1023) Pulse: 74 (09/04 1023) Respirations: 18 PER MINUTE (09/04 1023) SpO2: 97 % (09/04 1023) O2 Delivery: None (Room Air) (09/04 102) BP: (117-127)/(56-69) Temp: [36.3 C (97.4 F)-36.5 C (97.7 F)] Pulse: [69-95] Respirations: [18 PER MINUTE] SpO2: [96 %-98 %] O2 Delivery: None (Room Air) Intake/Output: Intake/Output Summary (Last 24 hours) at 09/04/2018 1111 Last data filed at 09/03/2018 2204 Gross per 24 hour Intake 473 ml Output 0 ml Net 473 ml Physical Exam: General: No acute distress, resting comfortably, well-nourished Head: atraumatic Eyes: Pupils 3 mm bilateral, PERRLA, normal conjunctiva Ears: tympanic membranes clear and waxy with no blood Nose: no abnormalities Throat: pink, moist pharynx with no abnormalities, trachea midline, no neck tend erness Chest: symmetrical, non-labored breathing, CTABL Cardiac: regular rate and rhythm, no murmurs, 2+ radial and dorsalis pedis pulse s Abdomen: soft, non-distended, non-tender, +BS all four quadrants, no dullness to percussion : normal genitalia for sex and age, no CVA tenderness Extremities: no c/c/e. Neuro: CNII-XII intact, normal strength at mercerizer, elbows and knees, ankles, hi l sensation all 4 extremities Psych: appropriate mood and affect ROS: A complete 14 point ROS was obtained and was negative except for those listed in HPI Lab/Radiology/Other Diagnostic Tests: Recent Labs 09/02/18 0439 09/03/18 0515 09/04/18 0503 HGB 16.9* 16.2 16.0 HCT 49.8 48.5 46.5 WBC 4.9 4.8 4.5 PLTCT 137* 126* 105* NA 136* 136* 138 K 4.4 4.0 4.2 CL 100 101 103 CO2 24 26 22 BUN 38* 30* 29* CR 1.69* 1.41* 1.27* GLU 100 102* 96 CA 10.2 9.6 10.2 MG 2.7* 2.5 2.5 ALBUMIN 4.1 3.7 3.7 TOTPROT 6.9 6.4 6.5 TOTBILI 4.5* 4.3* 5.2* AST 143* 144* 140* ALT 21 27 25 ALKPHOS 185* 171* 173* INR 1.1 -- 1.1 Glucose: 96 (09/04/18 0503) * Sofy Sanchez, GREENSKEEPER - 08/29/2018 6:54 PM CDT Associated Order(s): CONSULT HEPATOLOGY PHYSICIAN General Consult Note Admission Date: 08/28/2018 LOS: 1 day Reason for Consult: Portal htn with portal vein thrombosis and suspected HCC. Mayela camacho assist in work up and mgmt. Consult type: Opinion with orders Assessment/Plan Liudmila Sam is a 67 yr old male admitted from Dr. Lyons's clinic 08/28 where patient had been referred for second opinion of his cancer diagnosis. He was adm itted for hypotension and large ascites. Hepatology is consulted for findings of portal vein thrombosis and suspected HCC. He has history of arthritis, skin can cer, hypertension and lymphoma Cirrhosis likely sec to HCV, h/o heavy alcohol use MELD-Na score: 18 at 08/29/2018 4:17 AM MELD score: 16 at 08/29/2018 4:17 AM Calculated from: Serum Creatinine: 1.55 MG/DL at 08/29/2018 4:17 AM Serum Sodium: 134 MMOL/L at 08/29/2018 4:17 AM Total Bilirubin: 2.9 MG/DL at 08/29/2018 4:17 AM INR(ratio): 1.1 at 08/29/2018 4:17 AM Age: 67 years - h/o HCV, treated with Harvoni by the [facility] in [place], per patient, achieved SV R - obtain HCV PCR, HBVc Ab total, HBVs Ag Liver mass concerning for HCC Omental thickening and studding - staging PET for lymphoma 06/02/18 showed a large central right lobe liver mass, lymphadenopathy in the chest, abdomen and subcutaneous nodules in the flanks as well as peritoneum and omentum - CT scan 06/12/2018 at OSH revealed cirrhotic liver with ill-defined low-density right lobe liver mass measuring 6.7 cm, moderate ascites, infiltration of oment um and nodularity suspicious for peritoneal carcinomatosis - AFP 06/20/18, > 20,000 - percutaneous liver biopsy high risk for bleeding given ascites, if plan to pur ebenezer transjugular biopsy would review with IR for feasibility - check Ca 19-9, CEA and AFP - FU cytology from paracentesis - unclear if patient would be a treatment candidate if HCC given elevated T bili and MELD score - given concern for multiple malignancies, may consider goals of care discussion and involvement of Palliative Care team if appropriate PV thrombosis - likely tumor thrombus - recommend DC Heparin gtt Fluid management - massive ascites, no h/o paracentesis, removed 11L fluid, received appropriate albumin replacement, no evidence of SBP, FU fluid studies, cytology - LE edema with erythema bilat LE - 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 Claros's attestation. History of Present Illness: Liudmila Sam is a 67 y.o. male patient says he w as referred to see Dr. Vital due to large liver tumor that he has been told is l ikely HCC. He is aware of the parotid mass, lymphoma and skin cancers but states , "everything is on hold because this liver thing is the most important." He rep orts swelling of his lower extremities and fluid in his abdomen started around C hristmas last year. This was initially helped with taking diuretics but has prog ressed so significantly that his ADLs are affected. He admits to being out of di uretics at one point but states he could get them represcribed. His abdominal as cites as progressive to the point that he has SOB with increased activity, and d ecreased activity tolerance, is unable to lie flat to sleep and when he attempts to lay down, he coughs severely. Denies productive cough. He has abdominal disc omfort and is surprised by the relief he feels with paracentesis today, even fee ls a little hungry. He has been unable to eat and drink much, stating "one banan a fills me up." He attempts to drink Ensure as meals. He denies ever being told he had cirrhosis or problems with his kidneys. He reports he had hepatitis twice in his life; once at 10 years old, and reports his whole family was quarantined for a time. He developed severe jaundice at that time. He also reports hepatitis when he served in the and was hospitalized for ~ 1 week at [facility]. He reports being dismissed after LFTs normalized, he did not have jaundice. He has never had a transfusion to his knowledge. He had a colonoscopy ~ 2 years ago for BRBPR, at the [facility], [place], had 5 polyps removed and was told he needed repeat colonoscopy every 5 years. He denies feeling confused, fevers, chills, sore throat, difficulty swallowing, radiating CP, dizziness, syncope, falls or palpit ations, yellowing of skin or eyes, melena, dysuria. He is constantly nauseous, n o vomiting. He has pruritis. He has never had an EGD. He has pain in joints, kne es, ankles and elbows. He takes eye drops for dry eyes. BM this AM. He lives alone but has a brother living near him who is a supportive family [facility]. He has been retired for ~ 6 years. 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 Moved to the [place] area when his mother was diagnosed with Alzheimer's disease. She currently living in a intermediate in [place]. His father has been for 45 years. of "old age." No known family history of liver disease. Ambul ates with cane. Reports history of heavy alcohol use ~ 20 years ago, drinking 12 pack of beer brittany peralta. 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 Until 2017, patient drank occasionally however no alcohol since 01/2018. He stopped drinking on his own b ecause he was "tired of feeling unwell and tired of partying." He smokes 1/2 pac k per day of cigarettes. He denies h/o IV drugs. Last snorted cocaine ~ 10 years ago. Last used marijuana last summer. Medical History: Diagnosis Date Arthritis Cancer of skin Hearing reduced Hypertension Liver cancer (HCC) Lymphoma (HCC) Vision decreased Surgical History: Procedure Laterality Date COLONOSCOPY HX APPENDECTOMY LYMPH NODE BIOPSY MOHS SURGERY Social History Socioeconomic History Marital status: Single Spouse name: Not on file Number of children: Not on file Years of education: Not on file Highest education level: Not on file Occupational History Not on file Social Needs Financial resource strain: Not on file Food insecurity: Worry: Not on file Inability: Not on file Transportation needs: Medical: Not on file Non-medical: Not on file Tobacco Use Smoking status: Current Every Day Smoker Packs/day: 0.50 Types: Cigarettes Smokeless tobacco: Never Used Substance and Sexual Activity Alcohol use: Never Frequency: Never Drug use: Never Sexual activity: Not on file Lifestyle Physical activity: Days per week: Not on file Minutes per session: Not on file Stress: Not on file Relationships Social connections: Talks on phone: Not on file Gets together: Not on file Attends uatsdin service: Not on file Active member of club or organization: Not on file Attends meetings of clubs or organizations: Not on file Relationship status: Not on file Intimate partner violence: Fear of current or ex partner: Not on file Emotionally abused: Not on file Physically abused: Not on file Forced sexual activity: Not on file Other Topics Concern Not on file Social History Narrative Not on file No family history on file. As above. Allergies: Aspirin; Seasonal allergies; and Tylenol [acetaminophen] Scheduled Meds: acetaminophen (TYLENOL) tablet 650 mg 650 mg Oral ONCE dextran 70/hypromellose (GENTEAL TEARS; BION TEARS) ophthalmic solution 1-2 drop 1-2 drop Both Eyes TID heparin (porcine) BOLUS for continuous inf (bag) 2,150-4,300 Units 20-40 Units/k g Intravenous As Prescribed nicotine (NICODERM CQ STEP 2) 14 mg/day patch 1 patch 1 patch Transdermal QDAY Continuous Infusions: heparin (porcine) 20,000 units/D5W 500 mL infusion (std conc)(premade) 1,935 Units/hr (08/29/18 1554) PRN and Respiratory Meds:methylcellulose PRN, ondansetron (ZOFRAN) IV Q6H PRN Review of Systems: 10 point ROS negative except for as above in HPI. Vital Signs: Last Filed in 24 hours Vital Signs: 24 hour Range BP: 109/53 (08/29 1700) Temp: 36.4 C (97.6 F) (08/29 1699) Pulse: 79 (08/29 170) Respirations: 16 PER MINUTE (08/29 1699) SpO2: 97 % (08/29 1699) O2 Delivery: None (Room Air) (08/29 1699) SpO2 Pulse: 79 (08/29 1200) Height: 182.9 cm (72") (08/29 0841) BP: (70-114)/(43-65) Temp: [36.3 C (97.3 F)-36.7 C (98.1 F)] Pulse: [0-89] Respirations: [16 PER MINUTE-30 PER MINUTE] SpO2: [89 %-98 %] O2 Delivery: None (Room Air) Physical Exam: Gen: alert, oriented, in no distress, appear chronically ill HEENT: NCAT, palpable area of erythematous swelling/firmness on right neck, + s cleral icterus, oral mucosa moist without lesion, edentulous, wearing corrective lenses Resp: CTAB, non labored at rest, RA CV: RRR, 3+ bilat LE pitting edema to knees, peripheral pulses 2+ UE, difficult to palpate in LE due to edema Abd: soft, obese, mildly distended after paracentesis, flank edema, erythema ove r abdomen, BS+ Ext: erythema and swelling to bilat LE, skin dry cracking Skin: multiple scattered lesions, over back, chest, right leg, top of head; scat tered bruising Neuro: non focal exam, no asterixis Psych: pleasant affect, cooperative, mood stable Lab/Radiology/Other Diagnostic Tests: 24-hour labs: Results for orders placed or performed during the hospital encounter of 08/28/18 (from the past 24 hour(s)) URINALYSIS DIPSTICK Collection Time: 08/28/18 10:47 PM Result Value Ref Range Color,UA NGUYEN Turbidity,UA CLEAR CLEAR-CLEAR Specific [place]-Urine 1.015 1.003 - 1.035 pH,UA 5.0 5.0 - 8.0 Protein,UA NEG NEG-NEG Glucose,UA NEG NEG-NEG Ketones,UA NEG NEG-NEG Bilirubin,UA NEG NEG-NEG Blood,UA NEG NEG-NEG Urobilinogen,UA INCREASED (A) NORM-NORMAL Nitrite,UA NEG NEG-NEG Leukocytes,UA NEG NEG-NEG Urine Ascorbic Acid, UA NEG NEG-NEG URINALYSIS, MICROSCOPIC Collection Time: 08/28/18 10:47 PM Result Value Ref Range WBCs,UA 0-2 0 - 2 /HPF RBCs,UA 0-2 0 - 3 /HPF MucousUA TRACE Squamous Epithelial Cells 0-2 0 - 5 Hyaline Cast PACKED SODIUM-URINE RANDOM Collection Time: 08/28/18 10:47 PM Result Value Ref Range Sodium, Random 22 MMOL/L CREATININE-URINE RANDOM Collection Time: 08/28/18 10:47 PM Result Value Ref Range Creatinine, Random 254 MG/DL UREA NITROGEN-URINE RANDOM Collection Time: 08/28/18 10:47 PM Result Value Ref Range Urea Nitrogen 597 MG/DL CBC AND DIFF Collection Time: 08/29/18 4:17 AM Result Value Ref Range White Blood Cells 3.4 (L) 4.5 - 11.0 K/UL RBC 4.76 4.4 - 5.5 M/UL Hemoglobin 14.8 13.5 - 16.5 GM/DL Hematocrit 43.1 40 - 50 % MCV 90.6 80 - 100 FL MCH 31.1 26 - 34 PG MCHC 34.3 32.0 - 36.0 G/DL RDW 18.4 (H) 11 - 15 % Platelet Count 109 (L) 150 - 400 K/UL MPV 9.7 7 - 11 FL Neutrophils 71 41 - 77 % Lymphocytes 11 (L) 24 - 44 % Monocytes 16 (H) 4 - 12 % Eosinophils 1 0 - 5 % Basophils 1 0 - 2 % Absolute Neutrophil Count 2.40 1.8 - 7.0 K/UL Absolute Lymph Count 0.40 (L) 1.0 - 4.8 K/UL Absolute Monocyte Count 0.50 0 - 0.80 K/UL Absolute Eosinophil Count 0.00 0 - 0.45 K/UL Absolute Basophil Count 0.00 0 - 0.20 K/UL COMPREHENSIVE METABOLIC PANEL Collection Time: 08/29/18 4:17 AM Result Value Ref Range Sodium 134 (L) 137 - 147 MMOL/L Potassium 4.0 3.5 - 5.1 MMOL/L Chloride 102 98 - 110 MMOL/L Glucose 95 70 - 100 MG/DL Blood Urea Nitrogen 30 (H) 7 - 25 MG/DL Creatinine 1.55 (H) 0.4 - 1.24 MG/DL Calcium 8.8 8.5 - 10.6 MG/DL Total Protein 5.7 (L) 6.0 - 8.0 G/DL Total Bilirubin 2.9 (H) 0.3 - 1.2 MG/DL Albumin 2.7 (L) 3.5 - 5.0 G/DL Alk Phosphatase 178 (H) 25 - 110 U/L AST (SGOT) 154 (H) 7 - 40 U/L CO2 24 21 - 30 MMOL/L ALT (SGPT) 21 7 - 56 U/L Anion Gap 8 3 - 12 eGFR Non 45 (L) >60 mL/min eGFR 54 (L) >60 mL/min MAGNESIUM Collection Time: 08/29/18 4:17 AM Result Value Ref Range Magnesium 2.3 1.6 - 2.6 mg/dL PROTIME INR (PT) Collection Time: 08/29/18 4:17 AM Result Value Ref Range INR 1.1 0.8 - 1.2 CELL COUNT W/DIFF-FLUIDS Collection Time: 08/29/18 10:04 AM Result Value Ref Range White Blood Cells,Fluid 540 /UL Red Blood Cells,Fluid 2,700 /UL Segmented Neutrophils, Fluid 3 % Lymphocytes,Fluid 50 % Monocyte/Histo,Fluid 41 % Eosinophils, Fluid 6 % Fluid Source PERITONEAL FLUID Pathology Interpretation,Fluid Pathologist Signature PERITONEAL FLUID ALBUMIN Collection Time: 08/29/18 10:04 AM Result Value Ref Range Peritoneal Fluid Albumin <1.5 g/dL PERITONEAL FLUID TOTAL PROTEIN Collection Time: 08/29/18 10:04 AM Result Value Ref Range Peritoneal Fluid Total Protein <1.5 g/dL CULTURE-WOUND/TISSUE/FLUID(AEROBIC ONLY)W/SENSITIVITY Collection Time: 08/29/18 10:04 AM Result Value Ref Range Battery Name ROUTINE CULTURE Specimen Description PERITONEAL FLUID Special Requests NONE Direct Gram Stain RARE NEUTROPHILS FEW RBC'S NO ORGANISMS SEEN Culture Report Status GRAM STAIN Collection Time: 08/29/18 10:04 AM Result Value Ref Range Battery Name GRAM STAIN Specimen Description PERITONEAL FLUID Special Requests NONE Gram Stain RARE NEUTROPHILS FEW RBC'S NO ORGANISMS SEEN Report Status FINAL 08/29/2018 CBC Collection Time: 08/29/18 3:00 PM Result Value Ref Range White Blood Cells 4.3 (L) 4.5 - 11.0 K/UL RBC 5.00 4.4 - 5.5 M/UL Hemoglobin 15.4 13.5 - 16.5 GM/DL Hematocrit 45.8 40 - 50 % MCV 91.5 80 - 100 FL MCH 30.7 26 - 34 PG MCHC 33.6 32.0 - 36.0 G/DL RDW 18.9 (H) 11 - 15 % Platelet Count 128 (L) 150 - 400 K/UL MPV 11.0 7 - 11 FL PTT (APTT) Collection Time: 08/29/18 3:00 PM Result Value Ref Range APTT 31.5 24.0 - 36.5 SEC Pertinent radiology reviewed. Sofy Sanchez APRN Pager [phone] Associated attestation - Ziyad Claros MD - 08/29/2018 11:36 PM CDT ATTESTATION I personally performed the zabala portions of the E/M visit, discussed case with Nu rse Practitioner and concur with documentation of history, physical exam, assess ment, and treatment plan unless otherwise noted. Patient is a 67-year-old male with a history of prior hepatitis C treated with H arvoni approximately 2 years ago with reported viral clearance as well as histor y of heavy alcohol use in the past. He additionally has had a history of multip le melanomas/skin cancer with first lesion removed 7 years ago per his report. Patient reports symptoms initially began with increasing abdominal fluid retenti on primarily in his legs and abdomen noted around [place]. 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 He then had rece staging PET/CT in May 2018 with findings of a large central right lobe live r mass which was PET avid with SUV 9.9. There was additional uptake in his omen shannen and peritoneum concerning for extrahepatic disease. Patient had a CT scan w [facility] showed concerns for a 6.5 cm right segment 5 right lobe liver lesion with a nterior branch right portal vein thrombus due to tumor involvement. AFP was rep orted to be > 20,000 per documentation. Patient had recent clinic assessment by Dr. Lyons yesterday for initial evaluation and had had concerns for hypotension and severe abdominal distention from ascites where he was admitted for further evaluation. Patient had initial ultrasound concerning for portal vein thrombosis and has been started on a heparin drip. Patient underwent paracentesis today with removal of 11 L of ascites with some symptomatic improvement. Prior to admission patient had been on diuretics as well as lisinopril which have been held. Patient denies symptoms of encephalopathy or confusion. Denies bleeding or blood in his stool. He denies previous EGD. He had had previous colonoscopy at the [facility] completed 2 years ago with history of polyps. He denies weight loss. He has had some pruritus. He has had some shortness of breath and dyspnea and reports poor p.o. intake due to his abdominal distention. In regards to alcohol use he reports he would have up to 12 beers a day 20 years ago and had cut back when concerns for negative health effects. He reports his last drink was on giving. On exam the patient has a number of atypical appearing skin lesions on his scalp and his back and upper chest wall concerns for sign of Leser-Trlat. His abdo men is distended with ascites but not tense. Hepatosplenomegaly. No focal abdo hang tenderness. No rebound or guarding. He has hyperemia and 2+ pitting rosie a of his lower extremities without warmth. No asterixis present. Labs and imaging reviewed white blood cell count 3.4 hemoglobin 14.8 platelet co unt 109 INR 1.1 sodium 134 creatinine 1.55 down from 1.8 yesterday. Bilirubin 2 .9 which was 3.2 yesterday. AST 154 ALT 21 alkaline phosphatase 178. Fluid res ults showed a white-red blood cell 2700 with 540 white blood cell count with 3% segmented neutrophils. Fluid total protein and albumin each less than 1.5. Ult rasound at [facility] showed an acute appearing thrombus throughout the portal veins. T he liver appeared cirrhotic with marked parenchymal heterogeneity. There is cho lelithiasis and sludge in the nondistended gallbladder with mild gallbladder wal l thickening likely secondary to chronic liver disease. There is large volume a bdominopelvic ascites and bilateral pleural effusions. I directly reviewed his outside imaging including recent PET scan and CT scan with body radiology team marleni lindsey. There was concern for a 6.5 cm segment 5 ill-defined infiltrating appeari ng mass concerning for hepatocellular carcinoma. The mass appeared to be associ ated with right anterior branch portal vein involvement due to tumor extension a nd ingrowth. There was concern for omental thickening due to metastatic disease . There is intra-abdominal lymphadenopathy positive on PET scanning. There is concern for right lobe lung lesion which did not have typical features of a meta static lesion but did appear to be malignant with concern for a possible primary malignancy. Patient had extensive ascites present. Patient with history of prior hepatitis C with heavy alcohol use in the past wit h underlying cirrhosis presenting with decompensated disease with presence of ma ssive ascites. Current MELD score is 18. Patient additionally has concern for underlying advanced hepatocellular carcinoma with marked AFP elevation and large infiltrative liver mass with concern for portal vein involvement and extrahepat ic disease with omental involvement and abdominal lymphadenopathy. 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 His CT chest is abnormal and may have additional lung primary and may warrant further evaluation for assessment. I had a detailed discussion with the patient regarding the complex findings and features of his presentation. From liver perspective there is concern for adv anced hepatocellular carcinoma given clinical features. Dr. Lyons has recommende d guided biopsy of the liver mass although may need to weigh the risk and benefi ts with the patient's current clinical status including increased risk for bleed ing with percutaneous biopsy due to history of large ascites. Additionally with comorbidities and degree of liver disease concern for limited options for palli ative therapies. May be beneficial to have palliative care team meet with patie nt and discuss overall goals of care given complexities involved with case. Rec ommend check AFP and additional tumor markers with CA 199 and CEA at this fox e. Given portal vein thrombosis appears to be tumor related can discontinue hep atin drip. With hypotension, suspect component due to cirrhosis physiology. Co ntinue to hold lisinopril and diuretics. Start midodrine 10 mg TID. Patient richmond castellon benefit from future EGD to evaluate for varices pending clinical course. No e vidence of SBP on fluid analysis, would check ascites fluid for cytology. Check follow-up HCV PCR and screen for hepatitis B with hepatitis B surface antigen. I had a detailed discussion with patient regarding concerns for his advanced di sease and prognosis. Continue supportive care. Discussed in detail today with primary service. Staff name: Ziyad Claros MD Date: 08/29/2018 * Milagros Tamayo APRN, ANP-BC - 08/29/2018 3:35 PM CDT Associated Order(s): CONSULT INTERVENTIONAL RADIOLOGY PHYSICIAN Interventional Radiology Consult Note with Pre-procedural History and Physical Admission Date: 08/28/2018 LOS: 1 day Active Problems: Hypotension Reason for consult: Need for tissue diagnosis in suspicious liver mass. Assessment: - Imaging reviewed with Dr. Weaver and biopsy amendable with CT guidance. - Labs, medications, and allergies meet procedural protocol with heparin gtt chelsea sed 2 hours prior to procedure and 6 hours post-procedure. Plan: - Procedure has been reviewed and added onto the IR schedule for tomorrow. - For sedation purposes, please keep NPO prior to procedure. We appreciate being able to participate in this patient's care. Please page with any questions or concerns. Milagros Paniagua APRN,NEGIN Pgr [phone] IR Team Pager [phone] (After-hours and Weekends) Procedure Date: 08/29/2018 Procedure: CT guided liver mass biopsy. IR Pre Procedure Notes: CT supine. Heparin gtt needs to be paused 2 hours prior . Chief Complaint: Liver mass. Previous Anesthetic/Sedation History: Reviewed. History of present illness: Liudmila Sam is a 67 y.o. male patient with PMH lymphoma, hep C, HTN, and no w suspected HCC. Denies acute concerns. Review of Systems Constitutional: negative Respiratory: negative Cardiovascular: negative Medications Scheduled Meds: acetaminophen (TYLENOL) tablet 650 mg 650 mg Oral ONCE dextran 70/hypromellose (GENTEAL TEARS; BION TEARS) ophthalmic solution 1-2 drop 1-2 drop Both Eyes TID heparin (porcine) BOLUS for continuous inf (bag) 8,600 Units 80 Units/kg Intrave nous ONCE And heparin (porcine) BOLUS for continuous inf (bag) 2,150-4,300 Units 20-40 Units/k g Intravenous As Prescribed nicotine (NICODERM CQ STEP 2) 14 mg/day patch 1 patch 1 patch Transdermal QDAY Continuous Infusions: heparin (porcine) 20,000 units/D5W 500 mL infusion (std conc)(premade) PRN and Respiratory Meds:methylcellulose PRN, ondansetron (ZOFRAN) IV Q6H PRN Objective Vital Signs: Last Filed Vital Signs: 24 Lindy r Range BP: 88/54 (08/29 121) Temp: 36.3 C (97.3 F) (08/29 121) Pulse: 84 (08/29 1230) Respirations: 18 PER MINUTE (08/29 121) SpO2: 95 % (08/29 121) O2 Delivery: None (Room Air) (08/29 121) SpO2 Pulse: 79 (08/29 1200) Height: 182.9 cm (72") (08/29 0841) BP: (70-114)/(43-65) Temp: [36.3 C (97.3 F)-36.7 C (98.1 F)] Pulse: [0-89] Respirations: [16 PER MINUTE-30 PER MINUTE] SpO2: [89 %-98 %] O2 Delivery: None (Room Air) Intensity Pain Scale (Self Report): 8 (08/29/18 1230) Vitals: 08/28/186 08/29/18 0841 Weight: 107.7 kg (237 lb 7 oz) 107.5 kg (237 lb) Intake/Output Summary: (Last 24 hours) Intake/Output Summary (Last 24 hours) at 08/29/2018 1535 Last data filed at 08/29/2018 1336 Gross per 24 hour Intake 640 ml Output 89735 ml Net -69022 ml Stool Occurrence: 0 Physical Exam General: Alert, cooperative, no distress, appears stated age Lungs: Non-labored Heart: Normal apical pulse Airway: airway assessment performed Mallampati II (soft palate, uvula, fauces visible) Anesthesia Classification: ASA III (A patient with a severe systemic disease th at limits activity, but is not incapacitating) Sedation/Medication Plan: Fentanyl, Lidocaine and Midazolam Personal history of sedation complications: Denies adverse event. Family history of sedation complications: Denies adverse event. Medications for Reversal: Naloxone and Flumazenil Discussion/Reviews: Physician has discussed risks and alternatives of this type of sedation and above planned procedures with patient NPO Status: Acceptable Status: Not Lab/Radiology/Other Diagnostic Tests: Labs: 24-hour labs: Results for orders placed or performed during the hospital encounter of 08/28/18 (from the past 24 hour(s)) CBC AND DIFF Collection Time: 08/28/18 6:55 PM Result Value Ref Range White Blood Cells 4.3 (L) 4.5 - 11.0 K/UL RBC 5.44 4.4 - 5.5 M/UL Hemoglobin 17.2 (H) 13.5 - 16.5 GM/DL Hematocrit 49.2 40 - 50 % MCV 90.5 80 - 100 FL MCH 31.5 26 - 34 PG MCHC 34.8 32.0 - 36.0 G/DL RDW 18.1 (H) 11 - 15 % Platelet Count 136 (L) 150 - 400 K/UL MPV 10.5 7 - 11 FL Segmented Neutrophils 80 (H) 41 - 77 % Bands 1 0 - 10 % Lymphocytes 8 (L) 24 - 44 % Monocytes 9 4 - 12 % Eosinophil 1 0 - 5 % Basophil 1 0 - 2 % ANISO PRESENT POIK PRESENT POLY PRESENT Ovalocyte PRESENT Platelet Estimate SLT DEC Absolute Neutrophil Count Manual 3.48 1.8 - 7.0 K/UL COMPREHENSIVE METABOLIC PANEL Collection Time: 08/28/18 6:55 PM Result Value Ref Range Sodium 134 (L) 137 - 147 MMOL/L Potassium 4.5 3.5 - 5.1 MMOL/L Chloride 98 98 - 110 MMOL/L Glucose 90 70 - 100 MG/DL Blood Urea Nitrogen 30 (H) 7 - 25 MG/DL Creatinine 1.81 (H) 0.4 - 1.24 MG/DL Calcium 9.3 8.5 - 10.6 MG/DL Total Protein 6.8 6.0 - 8.0 G/DL Total Bilirubin 3.2 (H) 0.3 - 1.2 MG/DL Albumin 3.3 (L) 3.5 - 5.0 G/DL Alk Phosphatase 203 (H) 25 - 110 U/L AST (SGOT) 197 (H) 7 - 40 U/L CO2 25 21 - 30 MMOL/L ALT (SGPT) 27 7 - 56 U/L Anion Gap 11 3 - 12 eGFR Non 38 (L) >60 mL/min eGFR 45 (L) >60 mL/min PROTIME INR (PT) Collection Time: 08/28/18 6:55 PM Result Value Ref Range INR 1.1 0.8 - 1.2 LACTIC ACID(LACTATE) Collection Time: 08/28/18 6:55 PM Result Value Ref Range Lactic Acid 2.0 0.5 - 2.0 MMOL/L MAGNESIUM Collection Time: 08/28/18 6:55 PM Result Value Ref Range Magnesium 2.5 1.6 - 2.6 mg/dL PHOSPHORUS Collection Time: 08/28/18 6:55 PM Result Value Ref Range Phosphorus 4.0 2.0 - 4.5 MG/DL BILIRUBIN, DIRECT Collection Time: 08/28/18 6:55 PM Result Value Ref Range Bilirubin, Direct 0.7 (H) <0.4 MG/DL URINALYSIS DIPSTICK Collection Time: 08/28/18 10:47 PM Result Value Ref Range Color,UA NGUYEN Turbidity,UA CLEAR CLEAR-CLEAR Specific [place]-Urine 1.015 1.003 - 1.035 pH,UA 5.0 5.0 - 8.0 Protein,UA NEG NEG-NEG Glucose,UA NEG NEG-NEG Ketones,UA NEG NEG-NEG Bilirubin,UA NEG NEG-NEG Blood,UA NEG NEG-NEG Urobilinogen,UA INCREASED (A) NORM-NORMAL Nitrite,UA NEG NEG-NEG Leukocytes,UA NEG NEG-NEG Urine Ascorbic Acid, UA NEG NEG-NEG URINALYSIS, MICROSCOPIC Collection Time: 08/28/18 10:47 PM Result Value Ref Range WBCs,UA 0-2 0 - 2 /HPF RBCs,UA 0-2 0 - 3 /HPF MucousUA TRACE Squamous Epithelial Cells 0-2 0 - 5 Hyaline Cast PACKED SODIUM-URINE RANDOM Collection Time: 08/28/18 10:47 PM Result Value Ref Range Sodium, Random 22 MMOL/L CREATININE-URINE RANDOM Collection Time: 08/28/18 10:47 PM Result Value Ref Range Creatinine, Random 254 MG/DL UREA NITROGEN-URINE RANDOM Collection Time: 08/28/18 10:47 PM Result Value Ref Range Urea Nitrogen 597 MG/DL CBC AND DIFF Collection Time: 08/29/18 4:17 AM Result Value Ref Range White Blood Cells 3.4 (L) 4.5 - 11.0 K/UL RBC 4.76 4.4 - 5.5 M/UL Hemoglobin 14.8 13.5 - 16.5 GM/DL Hematocrit 43.1 40 - 50 % MCV 90.6 80 - 100 FL MCH 31.1 26 - 34 PG MCHC 34.3 32.0 - 36.0 G/DL RDW 18.4 (H) 11 - 15 % Platelet Count 109 (L) 150 - 400 K/UL MPV 9.7 7 - 11 FL Neutrophils 71 41 - 77 % Lymphocytes 11 (L) 24 - 44 % Monocytes 16 (H) 4 - 12 % Eosinophils 1 0 - 5 % Basophils 1 0 - 2 % Absolute Neutrophil Count 2.40 1.8 - 7.0 K/UL Absolute Lymph Count 0.40 (L) 1.0 - 4.8 K/UL Absolute Monocyte Count 0.50 0 - 0.80 K/UL Absolute Eosinophil Count 0.00 0 - 0.45 K/UL Absolute Basophil Count 0.00 0 - 0.20 K/UL COMPREHENSIVE METABOLIC PANEL Collection Time: 08/29/18 4:17 AM Result Value Ref Range Sodium 134 (L) 137 - 147 MMOL/L Potassium 4.0 3.5 - 5.1 MMOL/L Chloride 102 98 - 110 MMOL/L Glucose 95 70 - 100 MG/DL Blood Urea Nitrogen 30 (H) 7 - 25 MG/DL Creatinine 1.55 (H) 0.4 - 1.24 MG/DL Calcium 8.8 8.5 - 10.6 MG/DL Total Protein 5.7 (L) 6.0 - 8.0 G/DL Total Bilirubin 2.9 (H) 0.3 - 1.2 MG/DL Albumin 2.7 (L) 3.5 - 5.0 G/DL Alk Phosphatase 178 (H) 25 - 110 U/L AST (SGOT) 154 (H) 7 - 40 U/L CO2 24 21 - 30 MMOL/L ALT (SGPT) 21 7 - 56 U/L Anion Gap 8 3 - 12 eGFR Non 45 (L) >60 mL/min eGFR 54 (L) >60 mL/min MAGNESIUM Collection Time: 08/29/18 4:17 AM Result Value Ref Range Magnesium 2.3 1.6 - 2.6 mg/dL PROTIME INR (PT) Collection Time: 08/29/18 4:17 AM Result Value Ref Range INR 1.1 0.8 - 1.2 PERITONEAL FLUID ALBUMIN Collection Time: 08/29/18 10:04 AM Result Value Ref Range Peritoneal Fluid Albumin <1.5 g/dL PERITONEAL FLUID TOTAL PROTEIN Collection Time: 08/29/18 10:04 AM Result Value Ref Range Peritoneal Fluid Total Protein <1.5 g/dL CBC Collection Time: 08/29/18 3:00 PM Result Value Ref Range White Blood Cells 4.3 (L) 4.5 - 11.0 K/UL RBC 5.00 4.4 - 5.5 M/UL Hemoglobin 15.4 13.5 - 16.5 GM/DL Hematocrit 45.8 40 - 50 % MCV 91.5 80 - 100 FL MCH 30.7 26 - 34 PG MCHC 33.6 32.0 - 36.0 G/DL RDW 18.9 (H) 11 - 15 % Platelet Count 128 (L) 150 - 400 K/UL MPV 11.0 7 - 11 FL PTT (APTT) Collection Time: 08/29/18 3:00 PM Result Value Ref Range APTT 31.5 24.0 - 36.5 SEC Radiology: Reviewed. * Lucy Lawson APRN - 08/29/2018 8:23 AM CDT Associated Order(s): CONSULT INTERVENTIONAL RADIOLOGY PHYSICIAN Interventional Radiology Consult Note with Pre-procedural History and Physical Admission Date: 08/28/2018 LOS: 1 day Active Problems: Hypotension Reason for consult: Ascites, ESLD, Hepatitis C Need for paracentesis Assessment: - Ascites noted on imaging, fluid wave noted on US imaging - Labs, medications, and allergies meet procedural protocol. Plan: - Imaging and Order has been reviewed and added onto the [place] IR schedule for 02/06. - For sedation purposes, please keep NPO prior to procedure. We appreciate being able to participate in this patient's care. Please page with any questions or concerns. Lucy Lawson APRN Pgr [phone] IR Team Pager [phone] (After-hours and Weekends) Procedure Date: 08/29/2018 Procedure: Ultrasound guided paracentesis IR Pre Procedure Notes: N/A Chief Complaint: Ascites, ESLD, Abdominal distension Previous Anesthetic/Sedation History: Reviewed. History of present illness: Liudmila Sam is a 67 y.o. male patient with history of ascites, fluid wave a nd hx of hepatitis C. He is in need of therapeutic and diagnostic paracentesis. Review of Systems Cardiovascular: negative for chest pain, chest pressure/discomfort Gastrointestinal: positive for abdominal distension. Genitourinary:negative for frequency Medications Scheduled Meds: [MAR Hold] dextran 70/hypromellose (GENTEAL TEARS; BION TEARS) ophthalmic soluti on 1-2 drop 1-2 drop Both Eyes TID [MAR Hold] nicotine (NICODERM CQ STEP 2) 14 mg/day patch 1 patch 1 patch Transde rmal QDAY Continuous Infusions: PRN and Respiratory Meds:[MAR Hold] methylcellulose PRN, [MAR Hold] ondansetron (ZOFRAN) IV Q6H PRN Objective Vital Signs: Last Filed Vital Signs: 24 Lindy r Range BP: 111/62 (08/29 0108) Temp: 36.5 C (97.7 F) (08/30 611) Pulse: 89 (08/29 0700) Respirations: 18 PER MINUTE (08/30 611) SpO2: 92 % (08/30 611) O2 Delivery: None (Room Air) (08/30 611) Height: 182.9 cm (72") (08/28 2025) BP: (84-114)/(44-65) Temp: [36.3 C (97.4 F)-36.7 C (98.1 F)] Pulse: [78-89] Respirations: [16 PER MINUTE-18 PER MINUTE] SpO2: [92 %-98 %] O2 Delivery: None (Room Air) Vitals: 08/28/182025 Weight: 107.7 kg (237 lb 7 oz) Intake/Output Summary: (Last 24 hours) Intake/Output Summary (Last 24 hours) at 08/29/2018 0823 Last data filed at 08/29/2018 0750 Gross per 24 hour Intake 400 ml Output 280 ml Net 120 ml Stool Occurrence: 0 Physical Exam General appearance: alert Neurologic: Grossly normal Alert and oriented X 3, normal strength and tone. Normal symmetric reflexes. Nor mal coordination and gait Lungs: clear to auscultation bilaterally Heart: regular rate and rhythm, S1, S2 normal, no murmur, click, rub or gallop Abdomen: Abdominal distension present Extremities: extremities normal, atraumatic, no cyanosis or edema Airway: airway assessment performed Mallampati II (soft palate, uvula, fauces visible) Anesthesia Classification: ASA II (A normal patient with mild systemic disease) Sedation/Medication Plan: Lidocaine Personal history of sedation complications: Denies adverse event. Family history of sedation complications: Denies adverse event. Medications for Reversal: None Discussion/Reviews: Physician has discussed risks and alternatives of this type of sedation and above planned procedures with patient NPO Status: Acceptable Status: Not Lab/Radiology/Other Diagnostic Tests: Labs: Pertinent labs reviewed Radiology: Reviewed. documented in this encounter Miscellaneous Notes * Case Mgmt DC Plan - Jazmin Eldridge RN - 09/01/2018 2:40 PM CDT Case Management Progress Note NAME:Liudmila Sam :[birth year] AGE: 67 y.o. ADMISSION DATE: 08/28/2018 DAYS ADMITTED: LOS: 4 days Todays Date: 09/01/2018 Plan - DC planning ongoing Interventions ? Support ? Info or Referral ? Discharge Planning - NCM reviewed EMR and discussed pt with onc team during huddle this morning. - Pt's creatinine a little better, BUN worsening. - Per team, pt's prognosis is poor. - Onc team anticipates a DC to home with hospice possibly next week. - GOC conversations to continue today. - Case management team will continue to follow. ? Medication Needs ? Financial ? Legal ? Other Disposition ? Expected Discharge Date Expected Discharge Date: 09/01/18 Expected Discharge Time: 1400 ? Transportation Does the patient need discharge transport arranged?: No Transportation Name, Phone and Availability #1: pt will drive self home at time of DC ? Next Level of Care (Acute Psych discharges only) ? Discharge Disposition Durable Medical Equipment No service has been selected for the patient. [facility] Destination No service has been selected for the patient. Home Care No service has been selected for the patient. Dialysis/Infusion No service has been selected for the patient. Jazmin MONTERROSO, RN Nurse [employer] Pager: [phone] * Case Mgmt DC Plan - Jazmin Eldridge RN - 08/31/2018 2:58 PM CDT Case Management Admission Assessment NAME:Liudmila Sam :[birth year] AGE: 67 y.o. ADMISSION DATE: 08/28/2018 DAYS ADMITTED: LOS: 3 days Todays Date: 08/31/2018 Source of Information: patient Plan - NCM reviewed EMR and discussed pt with team. - Per H&P: Mr. Sam is a 67-year-old male with a past medical history of possible new hepatocellular carcinoma diagnosis, known parotid lymphoma, history of hepatitis C, hypertension that presents from oncology clinic for hypotension and dehydration - No HH or facility history. - Pt has cane and pt denies the need for additional DME. - Pt denies any NCM needs at this time. - Case management team will continue to follow. Patient Address/Phone [address] [facility] [address] (home) Emergency Contact Extended Emergency Contact Information Primary Emergency Contact: Ramon Sam Mobile Relation: Brother Preferred language: FRENCH Stripper Black And White needed? No Healthcare Directive Healthcare Directive: No, patient does not have a healthcare directive Would patient like to fill out a (a new) Healthcare Directive?: No, patient decl ined Psych Advance Directive (Psych unit only): No, patient does not have a Psych Adv ance Directive Transportation Does the patient need discharge transport arranged?: No Transportation Name, Phone and Availability #1: pt will drive self home at time of DC Expected Discharge Date Expected Discharge Date: 09/01/18 Expected Discharge Time: 1400 Living Situation Prior to Admission ? Living Arrangements Type of Residence: Home, independent Living Arrangements: Alone Bathroom Shower / Tub: Tub/Shower Unit How many levels in the residence?: 1 Can patient live on one level if needed?: Yes Does residence have entry and/or side stairs?: No(elevator to apartment) Assistance needed prior to admit or anticipated on discharge: No ? Level of Function Prior level of function: Independent ? Cognitive Abilities Cognitive Abilities: Alert and Oriented, Participates in decision making, Unders tands nature of health condition Financial Resources ? Coverage Primary Insurance: Commercial insurance Additional Coverage: RX ? Source of Income Source Of Income: Other group home income ? Financial Assistance Needed? no Psychosocial Needs ? Mental Health ? Substance Use History ? Other no Current/Previous Services ? PCP Mary Ellen Alvarez, , ? Pharmacy [id number] - [place], [place] - [address] [facility] [id number] ? Durable Medical Equipment Durable Medical Equipment at home: Single Point Cane ? Home Health Receiving home health: No ? Hemodialysis or Peritoneal Dialysis Undergoing hemodialysis or peritoneal dialysis: No ? Tube/Enteral Feeds Receive tube/enteral feeds: No ? Infusion Receive infusions: No ? Private Duty Private duty help used: No ? Home and Community Based Services Home and community based services: No ? Ziyad Lackey White: N/A ? Hospice Hospice: No ? Outpatient Therapy PT: No OT: No PUNCH HAND: No ? Halfway Facility/Senior Living SNF: No NH: No ? Inpatient Rehab IPR: No ? Long-Term Acute Care Hospital LTACH: No ? Acute Hospital Stay Acute Hospital Stay: No Jazmin MONTERROSO, RN Nurse [employer]ining [employer] Sewer Pager: [phone] * Critical Results - Tracie Carlson RN - 08/30/2018 12:07 AM CDT Critical result or procedure called (document test and value, and read back): P TT >200 seconds Time MD/BODYBUILDER Notified: [id number] MD/BODYBUILDER Name: Dr. Hong BROWN/BODYBUILDER Response/Orders Given: Follow heparin infusion scale * Case Mgmt DC Plan - Jazmin Eldridge RN - 08/29/2018 11:54 AM CDT Case Management Progress Note NAME:Liudmila Sam :[birth year] AGE: 67 y.o. ADMISSION DATE: 08/28/2018 DAYS ADMITTED: LOS: 1 day Todays Date: 08/29/2018 Plan - DC home today Interventions ? Support ? Info or Referral ? Discharge Planning - [facility] reviewed EMR and discussed pt with physician team. - Per onc team, pt admitted for low BP, pt stable. - Pt to DC home today following therapeutic/diagnostic para in IR. - Possible liver biopsy in IR as well, if no biopsy possible today then biopsy t o occur outpatient. - Per team, no case management needs. - Case management team will continue to follow and assist as needed. ? Medication Needs ? Financial ? Legal ? Other Disposition ? Expected Discharge Date Expected Discharge Date: 08/29/18 Expected Discharge Time: 1400 ? Transportation ? Next Level of Care (Acute Psych discharges only) ? Discharge Disposition Durable Medical Equipment No service has been selected for the patient. [facility] Destination No service has been selected for the patient. Home Care No service has been selected for the patient. [facility] Dialysis/Infusion No service has been selected for the patient. Jazmin MONTERROSO, RN Nurse [employer]er Pager: [phone] * Procedures (Immed Post or Bedside) - Baldomero Prakash APRN-NP - 08/29/2018 10:20 AM CDT Immediate Post Procedure Note Date: 08/29/2018 Attending Physician: Dr. Darius Weaver MD Performing Provider: DANN Robles Consent: Consent obtained from patient. Risks and benefits discussed with patient. Time out performed: Consent obtained, correct patient verified, correct procedur e verified, correct site verified, patient marked as necessary. Pre/Post Procedure Diagnosis: Ascites Indications: Ascites Anesthesia: Local 10 mL 2% lidocaine without epinephrine Procedure(s): US guided paracentesis Findings: Ascites with clear yellow aspirate Estimated Blood Loss: None/Negligible Specimen(s) Removed/Disposition: Yes, sent to pathology Complications: None Patient Tolerated Procedure: Well Post-Procedure Condition: stable DANN Robles Pager [phone] * Care Plan - Cristy Mazariegos RN - 08/29/2018 4:14 AM CDT Problem: Discharge Planning Goal: Participation in plan of care Outcome: Goal Ongoing Patient involved in discharge planning as evidence by appropriate use of questio ns. * Advanced Care Planning/Resuscitation Status - Charles Burden DO - 08/28/2018 7:52 PM CDT Advance Care Planning/Resuscitation Status Conversation Individuals present for advance care planning conversation: patient and resident /fellow physician Pertinent details of conversation (including direct quotes from patient or surro gate): Full code Outcome of conversation: Full Code Documents completed as a result of this conversation: None Other documents present, which outline patient/surrogate wishes: None documented in this encounter Plan of Treatment Not on filedocumented as of this encounter Procedures Comments Procedure Name Priority Date/Time Associated Diagnosis PROTIME INR (PT) Routine 09/04/2018 5:03 AM CDT CBC AND DIFF Routine 09/04/2018 5:03 AM CDT MAGNESIUM Routine 09/04/2018 5:03 AM CDT COMPREHENSIVE METABOLIC Routine 09/04/2018 PANEL 5:03 AM CDT CBC AND DIFF Routine 09/03/2018 5:15 AM CDT MAGNESIUM Routine 09/03/2018 5:15 AM CDT COMPREHENSIVE METABOLIC Routine 09/03/2018 PANEL 5:15 AM CDT UA REFLEX CULTURE LABEL Routine 09/02/2018 6:03 PM CDT URINALYSIS MICROSCOPIC Routine 09/02/2018 REFLEX TO CULTURE 6:03 PM CDT URINALYSIS DIPSTICK Routine 09/02/2018 REFLEX TO CULTURE 6:03 PM CDT PROTIME INR (PT) Routine 09/02/2018 4:39 AM CDT CBC AND DIFF Routine 09/02/2018 4:39 AM CDT MAGNESIUM Routine 09/02/2018 4:39 AM CDT COMPREHENSIVE METABOLIC Routine 09/02/2018 PANEL 4:39 AM CDT C DIFFICILE BY PCR Routine 09/01/2018 5:43 PM CDT PROTIME INR (PT) Routine 09/01/2018 5:46 AM CDT CBC AND DIFF Routine 09/01/2018 5:46 AM CDT MAGNESIUM Routine 09/01/2018 5:46 AM CDT COMPREHENSIVE METABOLIC Routine 09/01/2018 PANEL 5:46 AM CDT UA REFLEX CULTURE LABEL Routine 09/01/2018 12:48 AM CDT URINALYSIS MICROSCOPIC Routine 09/01/2018 REFLEX TO CULTURE 12:48 AM CDT URINALYSIS DIPSTICK Routine 09/01/2018 REFLEX TO CULTURE 12:48 AM CDT UREA NITROGEN-URINE Routine 08/31/2018 RANDOM 4:38 PM CDT SODIUM-URINE RANDOM Routine 08/31/2018 4:38 PM CDT CREATININE-URINE RANDOM Routine 08/31/2018 4:38 PM CDT PROTIME INR (PT) Routine 08/31/2018 5:18 AM CDT CBC AND DIFF Routine 08/31/2018 5:18 AM CDT MAGNESIUM Routine 08/31/2018 5:18 AM CDT COMPREHENSIVE METABOLIC Routine 08/31/2018 PANEL 5:18 AM CDT HEPATITIS B CORE AB TOT Routine 08/30/2018 (IGG+IGM) 4:41 AM CDT HEPATITIS C VIRAL LOAD Routine 08/30/2018 PCR QUANT 4:41 AM CDT HEPATITIS B SURFACE AG Routine 08/30/2018 4:41 AM CDT CA19.9 Routine 08/30/2018 4:41 AM CDT ALPHA FETO PROTEIN (AFP) Routine 08/30/2018 4:41 AM CDT PROTIME INR (PT) Routine 08/30/2018 4:41 AM CDT CBC AND DIFF Routine 08/30/2018 4:41 AM CDT MAGNESIUM Routine 08/30/2018 4:41 AM CDT CEA(CARCINOEMBRYONIC AG) Routine 08/30/2018 4:41 AM CDT COMPREHENSIVE METABOLIC Routine 08/30/2018 PANEL 4:41 AM CDT PTT (APTT) STAT 08/29/2018 11:10 PM CDT PTT (APTT) STAT 08/29/2018 3:00 PM CDT CBC STAT 08/29/2018 3:00 PM CDT NON-STOCK DRIER TENDER CYTOLOGY (BODY 08/29/2018 FLUIDS/TISSUE) 2:20 PM CDT IR ASPIRATION/DRAIN Routine 08/29/2018 11:00 AM CDT PERITONEAL FLUID TOTAL Routine 08/29/2018 PROTEIN 10:04 AM CDT PERITONEAL FLUID ALBUMIN Routine 08/29/2018 10:04 AM CDT GRAM STAIN Routine 08/29/2018 10:04 AM CDT CULTURE-WOUND/TISSUE/FLUI Routine 08/29/2018 D(AEROBIC 10:04 AM CDT ONLY)W/SENSITIVITY CELL COUNT W/DIFF-FLUIDS Routine 08/29/2018 10:04 AM CDT PROTIME INR (PT) Routine 08/29/2018 4:17 AM CDT CBC AND DIFF Routine 08/29/2018 4:17 AM CDT MAGNESIUM Routine 08/29/2018 4:17 AM CDT COMPREHENSIVE METABOLIC Routine 08/29/2018 PANEL 4:17 AM CDT URINALYSIS, MICROSCOPIC Routine 08/28/2018 10:47 PM CDT URINALYSIS DIPSTICK Routine 08/28/2018 10:47 PM CDT UREA NITROGEN-URINE Routine 08/28/2018 RANDOM 10:47 PM CDT SODIUM-URINE RANDOM Routine 08/28/2018 10:47 PM CDT CREATININE-URINE RANDOM Routine 08/28/2018 10:47 PM CDT US DOPPLER ABD PELV Routine 08/28/2018 RETROPER COMP 10:05 PM CDT US ABDOMEN COMPLETE Routine 08/28/2018 10:05 PM CDT ECG 12-LEAD Routine 08/28/2018 7:58 PM CDT CULTURE-BLOOD Routine 08/28/2018 W/SENSITIVITY 6:55 PM CDT PROTIME INR (PT) STAT 08/28/2018 6:55 PM CDT CBC AND DIFF STAT 08/28/2018 6:55 PM CDT PHOSPHORUS Add on 08/28/2018 6:55 PM CDT MAGNESIUM Add on 08/28/2018 6:55 PM CDT LACTIC ACID(LACTATE) STAT 08/28/2018 6:55 PM CDT BILIRUBIN, DIRECT Add on 08/28/2018 6:55 PM CDT COMPREHENSIVE METABOLIC STAT 08/28/2018 PANEL 6:55 PM CDT CULTURE-BLOOD Routine 08/28/2018 W/SENSITIVITY 6:50 PM CDT TELEMETRY STRIPS-SCAN 08/28/2018 12:00 AM CDT ECG-SCAN 08/28/2018 12:00 AM CDT documented in this encounter Results * MAGNESIUM (09/04/2018 5:03 AM CDT) Magnesium 2.5 1.6 - 2.6 mg/dL [facility] Specimen Blood Performing Organization Address City/State/Zipcode Phone Number [facility] [address] [place] [address] * COMPREHENSIVE METABOLIC PANEL (09/04/2018 5:03 AM CDT) Sodium 138 137 - 147 MMOL/L [facility] [...] (L) >60 mL/min [facility] Comment: [place] The eGFR is not validated for use in drug dosing adjustments.Continue to use estimated creatinine clearance per dosing reference text.Please contact the Clinical Pharmacist for questions. eGFR >60 >60 mL/min [facility] [place] Comment: The eGFR is not validated for use in drug dosing adjustments.Continue to use estimated creatinine clearance per dosing reference text.Please contact the Clinical Pharmacist for questions. Specimen Blood Performing Organization Address City/State/Zipcode Phone Number [facility] [address] [place] [address] * CBC AND DIFF (09/04/2018 5:03 AM CDT) White Blood 4.5 4.5 - 11.0 K/UL [...] Basophil Count Specimen Blood Performing Organization Address City/[facility] Phone Number [facility] [address] [place] [address] * PROTIME INR (PT) (09/04/2018 5:03 AM CDT) INR 1.1 0.8 - 1.2 [facility] Specimen Blood Performing Organization Address [facility] Phone Number [facility] [address] [place] [address] * MAGNESIUM (09/03/2018 5:15 AM CDT) Magnesium 2.5 1.6 - 2.6 mg/dL [facility] Specimen Blood Performing Organization Address [facility] Phone Number [facility] [address] [place] [address] * COMPREHENSIVE METABOLIC PANEL (09/03/2018 5:15 AM CDT) Sodium 136 (L) 137 - 147 MMOL/L [facility] Potassium 4.0 3.5 - 5.1 MMOL/L [facility] Chloride 101 98 - 110 MMOL/L [facility] Glucose 102 (H) 70 - 100 MG/DL [facility] Blood Urea 30 (H) 7 - 25 MG/DL [facility] Nitrogen Creatinine 1.41 (H) 0.4 - 1.24 MG/DL [facility] Calcium 9.6 8.5 - 10.6 MG/DL [facility] Total Protein 6.4 6.0 - 8.0 G/DL [facility] Total Bilirubin 4.3 (H) 0.3 - 1.2 MG/DL [facility] Albumin 3.7 3.5 - 5.0 G/DL [facility] Alk Phosphatase 171 (H) 25 - 110 U/L [facility] AST (SGOT) 144 (H) 7 - 40 U/L [facility] CO2 26 21 - 30 MMOL/L [facility] ALT (SGPT) 27 7 - 56 U/L [facility] Anion Gap 9 3 - 12 [facility] eGFR Non 50 (L) >60 mL/min [facility] Comment: [place] The eGFR is not validated for use in drug dosing adjustments.Continue to use estimated creatinine clearance per dosing reference text.Please contact the Clinical Pharmacist for questions. eGFR >60 >60 mL/min [facility] [place] Comment: The eGFR is not validated for use in drug dosing adjustments.Continue to use estimated creatinine clearance per dosing reference text.Please contact the Clinical Pharmacist for questions. Specimen Blood Performing Organization Address City/State/Zipcode Phone Number [facility] [address] [place] [address] * CBC AND DIFF (09/03/2018 5:15 AM CDT) White Blood 4.8 4.5 - 11.0 K/UL [facility] Cells RBC 5.36 4.4 - 5.5 M/UL [facility] Hemoglobin 16.2 13.5 - 16.5 GM/DL [facility] Hematocrit 48.5 40 - 50 % [facility] MCV 90.5 80 - 100 FL [facility] MCH 30.2 26 - 34 PG [facility] MCHC 33.3 32.0 - 36.0 G/DL [facility] RDW 18.5 (H) 11 - 15 % [facility] Platelet Count 126 (L)Comment: Confirmed by 150 - 400 K/UL [facility] smear MPV 9.4 7 - 11 FL [facility] Neutrophils 77 41 - 77 % [facility] Lymphocytes 8 (L) 24 - 44 % [facility] Monocytes 14 (H) 4 - 12 % [facility] Eosinophils 1 0 - 5 % [facility] Basophils 0 0 - 2 % [facility] Absolute 3.70 1.8 - 7.0 K/UL [facility] Neutrophil Count Absolute Lymph 0.40 (L) 1.0 - 4.8 K/UL [facility] Count Absolute 0.70 0 - 0.80 K/UL [facility] Monocyte Count Absolute 0.00 0 - 0.45 K/UL [facility] Eosinophil Count Absolute 0.00 0 - 0.20 K/UL [facility] Basophil Count Specimen Blood Performing Organization Address City/[facility] Phone Number [facility] [address] [place] [address] * UA REFLEX CULTURE LABEL (09/02/2018 6:03 PM CDT) UA Reflex LAB LABEL [facility] Culture Specimen Urine Performing Organization Address [facility] Phone Number [facility] [address] [place] [address] * URINALYSIS MICROSCOPIC REFLEX TO CULTURE (09/02/2018 6:03 PM CDT) WBCs,UA 2-10 0 - 2 /HPF [facility] RBCs,UA 0-2 0 - 3 /HPF [facility] Comment,UA Criteria for reflex to culture [facility] are WBC>10, Positive Nitrite, and/or >=+1 leukocytes. If quantity is not sufficient, an addendum will follow. MucousUA TRACE [facility] Hyaline Cast 2-5 [facility] Specimen Urine Performing Organization Address [facility] Phone Number [facility] [address] [place] [address] * URINALYSIS DIPSTICK REFLEX TO CULTURE (09/02/2018 6:03 PM CDT) Color,UA NGUYEN [facility] Turbidity,UA CLEAR CLEAR-CLEAR [facility] Specific 1.013 1.003 - 1.035 [facility] [place]-Urine pH,UA 5.0 5.0 - 8.0 [facility] MAIN [...] Acid, UA Specimen Urine Performing Organization Address [facility] Phone Number [facility] [address] [place] [address] * MAGNESIUM (09/02/2018 4:39 AM CDT) Magnesium 2.7 (H) 1.6 - 2.6 mg/dL [facility] Specimen Blood Performing Organization Address City/State/Zipcode Phone Number [facility] [address] [place] [address] * COMPREHENSIVE METABOLIC PANEL (09/02/2018 4:39 AM CDT) Sodium 136 (L) 137 - 147 MMOL/L [facility] Potassium 4.4 3.5 - 5.1 MMOL/L [facility] Chloride 100 98 - 110 MMOL/L [facility] Glucose 100 70 - 100 MG/DL [facility] Blood Urea 38 (H) 7 - 25 MG/DL [facility] Nitrogen Creatinine 1.69 (H) 0.4 - 1.24 MG/DL [facility] Calcium 10.2 8.5 - 10.6 MG/DL [facility] Total Protein 6.9 6.0 - 8.0 G/DL [facility] Total Bilirubin 4.5 (H) 0.3 - 1.2 MG/DL [facility] Albumin 4.1 3.5 - 5.0 G/DL [facility] Alk Phosphatase 185 (H) 25 - 110 U/L [facility] AST (SGOT) 143 (H) 7 - 40 U/L [facility] CO2 24 21 - 30 MMOL/L [facility] ALT (SGPT) 21 7 - 56 U/L [facility] Anion Gap 12 3 - 12 [facility] eGFR Non 41 (L) >60 mL/min [facility] Comment: [place] The eGFR is not validated for use in drug dosing adjustments.Continue to use estimated creatinine clearance per dosing reference text.Please contact the Clinical Pharmacist for questions. eGFR 49 (L) >60 mL/min [facility] [place] Comment: The eGFR is not validated for use in drug dosing adjustments.Continue to use estimated creatinine clearance per dosing reference text.Please contact the Clinical Pharmacist for questions. Specimen Blood Performing Organization Address City/State/Zipcode Phone Number [facility] [address] [place] [address] * CBC AND DIFF (09/02/2018 4:39 AM CDT) White Blood 4.9 4.5 - 11.0 K/UL [facility] Cells RBC 5.48 4.4 - 5.5 M/UL [facility] Hemoglobin 16.9 (H) 13.5 - 16.5 GM/DL [facility] Hematocrit 49.8 40 - 50 % [facility] MCV 90.9 80 - 100 FL [facility] MCH 30.8 26 - 34 PG [facility] MCHC 33.9 32.0 - 36.0 G/DL [facility] RDW 18.2 (H) 11 - 15 % [facility] Platelet Count 137 (L) 150 - 400 K/UL [facility] MPV 9.8 7 - 11 FL [facility] Neutrophils 78 (H) 41 - 77 % [facility] Lymphocytes 9 (L) 24 - 44 % [facility] Monocytes 12 4 - 12 % [facility] Eosinophils 0 0 - 5 % [facility] Basophils 1 0 - 2 % [facility] Absolute 3.80 1.8 - 7.0 K/UL [facility] Neutrophil Count Absolute Lymph 0.40 (L) 1.0 - 4.8 K/UL [facility] Count Absolute 0.60 0 - 0.80 K/UL [facility] Monocyte Count Absolute 0.00 0 - 0.45 K/UL [facility] Eosinophil Count Absolute 0.00 0 - 0.20 K/UL [facility] Basophil Count Specimen Blood Performing Organization Address [facility] Phone Number [facility] [address] [place] [phone] * PROTIME INR (PT) (09/02/2018 4:39 AM CDT) INR 1.1 0.8 - 1.2 [facility] Specimen Blood Performing Organization Address [facility] Phone Number [facility] [address] [place] [address] * C DIFFICILE BY PCR (09/01/2018 5:43 PM CDT) C. difficile NEGATIVE-wait 7 days to repeat [facility] Toxin B PCR test Specimen Feces Performing Organization Address [facility] Phone Number [facility] [address] [place] [phone] * MAGNESIUM (09/01/2018 5:46 AM CDT) Magnesium 2.5 1.6 - 2.6 mg/dL [facility] Specimen Blood Performing Organization Address [facility] Phone Number [facility] [address] [place] [address] * COMPREHENSIVE METABOLIC PANEL (09/01/2018 5:46 AM CDT) Sodium 133 (L) 137 - 147 MMOL/L [facility] Potassium 4.4 3.5 - 5.1 MMOL/L [facility] Chloride 99 98 - 110 MMOL/L [facility] Glucose 94 70 - 100 MG/DL [facility] Blood Urea 42 (H) 7 - 25 MG/DL [facility] Nitrogen Creatinine 2.11 (H) 0.4 - 1.24 MG/DL [facility] Calcium 9.6 8.5 - 10.6 MG/DL [facility] Total Protein 6.3 6.0 - 8.0 G/DL [facility] Total Bilirubin 4.0 (H) 0.3 - 1.2 MG/DL [facility] Albumin 3.7 3.5 - 5.0 G/DL [facility] Alk Phosphatase 176 (H) 25 - 110 U/L [facility] AST (SGOT) 161 (H) 7 - 40 U/L [facility] CO2 22 21 - 30 MMOL/L [facility] ALT (SGPT) 24 7 - 56 U/L [facility] Anion Gap 12 3 - 12 [facility] eGFR Non 31 (L) >60 mL/min [facility] Comment: [place] The eGFR is not validated for use in drug dosing adjustments.Continue to use estimated creatinine clearance per dosing reference text.Please contact the Clinical Pharmacist for questions. eGFR 38 (L) >60 mL/min [facility] [place] Comment: The eGFR is not validated for use in drug dosing adjustments.Continue to use estimated creatinine clearance per dosing reference text.Please contact the Clinical Pharmacist for questions. Specimen Blood Performing Organization Address City/State/Zipcode Phone Number MA[facility] [address] [place] [address] * CBC AND DIFF (09/01/2018 5:46 AM CDT) White Blood 4.8 4.5 - 11.0 K/UL [facility] Cells RBC 5.26 4.4 - 5.5 M/UL [facility] Hemoglobin 16.0 13.5 - 16.5 GM/DL [facility] Hematocrit 48.1 40 - 50 % [facility] MCV 91.5 80 - 100 FL [facility] MCH 30.3 26 - 34 PG [facility] MCHC 33.2 32.0 - 36.0 G/DL [facility] RDW 18.3 (H) 11 - 15 % [facility] Platelet Count 125 (L) 150 - 400 K/UL [facility] MPV 10.3 7 - 11 FL [facility] Neutrophils 76 41 - 77 % [facility] Lymphocytes 11 (L) 24 - 44 % [facility] Monocytes 12 4 - 12 % [facility] Eosinophils 0 0 - 5 % [facility] Basophils 1 0 - 2 % [facility] Absolute 3.70 1.8 - 7.0 K/UL [facility] Neutrophil Count Absolute Lymph 0.50 (L) 1.0 - 4.8 K/UL [facility] Count Absolute 0.60 0 - 0.80 K/UL [facility] Monocyte Count Absolute 0.00 0 - 0.45 K/UL [facility] Eosinophil Count Absolute 0.00 0 - 0.20 K/UL [facility] Basophil Count Specimen Blood Performing Organization Address City/[facility] Phone Number [facility] [address] [place] [address] * PROTIME INR (PT) (09/01/2018 5:46 AM CDT) INR 1.1 0.8 - 1.2 [facility] Specimen Blood Performing Organization Address [facility] Phone Number [facility] [address] [place] [address] * UA REFLEX CULTURE LABEL (09/01/2018 12:48 AM CDT) UA Reflex LAB LABEL [facility] Culture Specimen Urine Performing Organization Address [facility] Phone Number [facility] [address] [place] [address] * URINALYSIS MICROSCOPIC REFLEX TO CULTURE (09/01/2018 12:48 AM CDT) WBCs,UA 2-10 0 - 2 /HPF [facility] RBCs,UA 20-50 0 - 3 /HPF [facility] Comment,UA Criteria for reflex to culture [facility] are WBC>10, Positive Nitrite, and/or >=+1 leukocytes. If quantity is not sufficient, an addendum will follow. MucousUA TRACE [facility] Squamous 0-2 0 - 5 [facility] Epithelial Cells Hyaline Cast 2-5 [facility] Specimen Urine Performing Organization Address City/[facility] Phone Number [facility] [address] [place] [address] * URINALYSIS DIPSTICK REFLEX TO CULTURE (09/01/2018 12:48 AM CDT) Color,UA NGUYEN [facility] Turbidity,UA 1+ (A) CLEAR-CLEAR [facility] Specific 1.014 1.003 - 1.035 [facility] [place] pH,UA 5.0 5.0 - 8.0 [facility] Protein,UA NEG NEG-NEG [facility] Glucose,UA NEG NEG-NEG [facility] Ketones,UA NEG NEG-NEG [facility] Bilirubin,UA NEG NEG-NEG [facility] Blood,UA 3+ (A) NEG-NEG [facility] Urobilinogen,UA NORMAL NORM-NORMAL [facility] Nitrite,UA NEG NEG-NEG [facility] Leukocytes,UA NEG NEG-NEG [facility] Urine Ascorbic NEG NEG-NEG [facility] Acid, UA Specimen Urine Performing Organization Address [facility] Phone Number [facility] [address] [place] [address] * UREA NITROGEN-URINE RANDOM (08/31/2018 4:38 PM CDT) Urea Nitrogen 507 MG/DL [facility] Specimen Urine - Urine Performing Organization Address [facility] Phone Number [facility] [address] [place] [address] * SODIUM-URINE RANDOM (08/31/2018 4:38 PM CDT) Sodium, Random 15 MMOL/L [facility] Specimen Urine - Urine Performing Organization Address [facility] Phone Number [facility] [address] [place] [address] * CREATININE-URINE RANDOM (08/31/2018 4:38 PM CDT) Creatinine, 255 MG/DL [facility] Random Specimen Urine - Urine Performing Organization Address [facility] Phone Number [facility] [address] [place] [address] * MAGNESIUM (08/31/2018 5:18 AM CDT) Magnesium 2.4 1.6 - 2.6 mg/dL [facility] Specimen Blood Performing Organization Address City/State/Zipcode Phone Number MAIN [facility] [address] [place] [address] * COMPREHENSIVE METABOLIC PANEL (08/31/2018 5:18 AM CDT) Pathologist [facility] Sodium 133 (L) 137 - 147 MMOL/L [facility] Potassium 4.1 3.5 - 5.1 MMOL/L [facility] Chloride 99 98 - 110 MMOL/L [facility] Glucose 84 70 - 100 MG/DL [facility] Blood Urea 35 (H) 7 - 25 MG/DL [facility] Nitrogen Creatinine 2.35 (H) 0.4 - 1.24 MG/DL [facility] Calcium 8.8 8.5 - 10.6 MG/DL [facility] Total Protein 5.9 (L) 6.0 - 8.0 G/DL [facility] Total Bilirubin 2.8 (H) 0.3 - 1.2 MG/DL [facility] Albumin 3.2 (L) 3.5 - 5.0 G/DL [facility] Alk Phosphatase 164 (H) 25 - 110 U/L [facility] AST (SGOT) 151 (H) 7 - 40 U/L [facility] CO2 25 21 - 30 MMOL/L [facility] ALT (SGPT) 23 7 - 56 U/L [facility] Anion Gap 9 3 - 12 [facility] eGFR Non 28 (L) >60 mL/min [facility] Comment: [place] The eGFR is not validated for use in drug dosing adjustments.Continue to use estimated creatinine clearance per dosing reference text.Please contact the Clinical Pharmacist for questions. eGFR 34 (L) >60 mL/min [facility] [place] Comment: The eGFR is not validated for use in drug dosing adjustments.Continue to use estimated creatinine clearance per dosing reference text.Please contact the Clinical Pharmacist for questions. Specimen Blood Performing Organization Address City/State/Zipcode Phone Number MAIN LAB [address] [place] [address] * CBC AND DIFF (08/31/2018 5:18 AM CDT) Pathologist [facility] White Blood 4.1 (L) 4.5 - 11.0 K/UL [facility] Cells RBC 5.34 4.4 - 5.5 M/UL [facility] Hemoglobin 16.3 13.5 - 16.5 GM/DL [facility] Hematocrit 48.5 40 - 50 % [facility] MCV 90.8 80 - 100 FL [facility] MCH 30.6 26 - 34 PG [facility] MCHC 33.7 32.0 - 36.0 G/DL [facility] RDW 18.3 (H) 11 - 15 % [facility] Platelet Count 122 (L) 150 - 400 K/UL [facility] MPV 9.9 7 - 11 FL [facility] Neutrophils 71 41 - 77 % [facility] Lymphocytes 10 (L) 24 - 44 % [facility] Monocytes 17 (H) 4 - 12 % [facility] Eosinophils 1 0 - 5 % [facility] Basophils 1 0 - 2 % [facility] Absolute 2.90 1.8 - 7.0 K/UL [facility] Neutrophil Count Absolute Lymph 0.40 (L) 1.0 - 4.8 K/UL [facility] Count Absolute 0.70 0 - 0.80 K/UL [facility] Monocyte Count Absolute 0.00 0 - 0.45 K/UL [facility] Eosinophil Count Absolute 0.00 0 - 0.20 K/UL [facility] Basophil Count Specimen Blood Performing Organization Address City/[facility]/Zipcode Phone Number MAIN LAB [address] [place] [address] * PROTIME INR (PT) (08/31/2018 5:18 AM CDT) INR 1.1 0.8 - 1.2 MAIN LAB Specimen Blood Performing Organization Address City/[facility] Phone Number [facility] [address] [place] [address] * MAGNESIUM (08/30/2018 4:41 AM CDT) Magnesium 2.4 1.6 - 2.6 mg/dL MAIN LAB Specimen Blood Performing Organization Address City/[facility] Phone Number [facility] [address] [place] [address] * COMPREHENSIVE METABOLIC PANEL (08/30/2018 4:41 AM CDT) Sodium 136 (L) 137 - 147 MMOL/L [facility] Potassium 4.3 3.5 - 5.1 MMOL/L [facility] Chloride 101 98 - 110 MMOL/L [facility] Glucose 86 70 - 100 MG/DL [facility] Blood Urea 31 (H) 7 - 25 MG/DL [facility] Nitrogen Creatinine 1.84 (H) 0.4 - 1.24 MG/DL [facility] Calcium 9.2 8.5 - 10.6 MG/DL [facility] Total Protein 5.9 (L) 6.0 - 8.0 G/DL [facility] Total Bilirubin 3.0 (H) 0.3 - 1.2 MG/DL [facility] Albumin 3.2 (L) 3.5 - 5.0 G/DL [facility] Alk Phosphatase 147 (H) 25 - 110 U/L [facility] AST (SGOT) 143 (H) 7 - 40 U/L [facility] CO2 26 21 - 30 MMOL/L [facility] ALT (SGPT) 18 7 - 56 U/L [facility] Anion Gap 9 3 - 12 [facility] eGFR Non 37 (L) >60 mL/min [facility] Comment: [place] The eGFR is not validated for use in drug dosing adjustments.Continue to use estimated creatinine clearance per dosing reference text.Please contact the Clinical Pharmacist for questions. eGFR 45 (L) >60 mL/min [facility] [place] Comment: The eGFR is not validated for use in drug dosing adjustments.Continue to use estimated creatinine clearance per dosing reference text.Please contact the Clinical Pharmacist for questions. Specimen Blood Performing Organization Address City/State/Zipcode Phone Number MAIN LAB [address] [place] [address] * CBC AND DIFF (08/30/2018 4:41 AM CDT) White Blood 3.6 (L) 4.5 - 11.0 K/UL [facility] Cells RBC 5.23 4.4 - 5.5 M/UL [facility] Hemoglobin 16.1 13.5 - 16.5 GM/DL [facility] Hematocrit 48.2 40 - 50 % [facility] MCV 92.2 80 - 100 FL [facility] MCH 30.7 26 - 34 PG [facility] MCHC 33.3 32.0 - 36.0 G/DL [facility] RDW 18.3 (H) 11 - 15 % [facility] Platelet Count 97 (L) 150 - 400 K/UL [facility] MPV 10.5 7 - 11 FL [facility] Neutrophils 66 41 - 77 % [facility] Lymphocytes 16 (L) 24 - 44 % [facility] Monocytes 16 (H) 4 - 12 % [facility] Eosinophils 1 0 - 5 % MAIN LAB Basophils 1 0 - 2 % MAIN LAB Absolute 2.40 1.8 - 7.0 K/UL [facility] Neutrophil Count Absolute Lymph 0.60 (L) 1.0 - 4.8 K/UL [facility] Count Absolute 0.60 0 - 0.80 K/UL MAIN LAB Monocyte Count Absolute 0.00 0 - 0.45 K/UL MAIN LAB Eosinophil Count Absolute 0.00 0 - 0.20 K/UL MAIN LAB Basophil Count Specimen Blood Performing Organization Address City/[facility] Phone Number MAIN LAB [address] [place] [address] * HEPATITIS C VIRAL LOAD PCR QUANT (08/30/2018 4:41 AM CDT) Hepatitis C PCR HCV RNA Not Detected, <12 <12 IU/ML [facility] Quantitative IU/mL Comment: The test method detects HCV viral load using the Cortes RealTime assay. Please correlate results with the clinical status of the patient. Log 10 HCV <1.08 <1.08 IU/mL MAIN LAB Specimen Blood Performing Organization Address [facility] Phone Number MAIN LAB [address] [place] [address] * HEPATITIS B SURFACE AG (08/30/2018 4:41 AM CDT) HBsAg NEG NEG-NEG MAIN LAB Specimen Blood Performing Organization Address [facility] Phone Number MAIN LAB [address] [place] [address] * HEPATITIS B CORE AB TOT (IGG+IGM) (08/30/2018 4:41 AM CDT) Anti HBc Total NEG MAIN LAB Specimen Blood Performing Organization Address City/[facility] Phone [facility] MAIN LAB [address] [place] [address] * CEA(CARCINOEMBRYONIC AG) (08/30/2018 4:41 AM CDT) CEA 4.7 (H) <3.0 NG/ML MAIN LAB Specimen Blood Performing Organization Address City/[facility]/Zipcode Phone Number MAIN LAB [address] [place] [address] * CA19.9 (08/30/2018 4:41 AM CDT) CA 19-9 51 (H) <35 U/ml MAIN LAB Specimen Blood Performing Organization Address City/[facility] Phone Number MAIN LAB [address] [place] [address] * ALPHA FETO PROTEIN (AFP) (08/30/2018 4:41 AM CDT) Alpha Feto 31,677.0 (H) 0.0 - 15.0 NG/ML MAIN LAB Protein Specimen Blood Performing Organization Address City/[facility] Phone Number MAIN LAB [address] [place] [address] * PROTIME INR (PT) (08/30/2018 4:41 AM CDT) INR 1.1 0.8 - 1.2 MAIN LAB Specimen Blood Performing Organization Address [facility] Phone Number MAIN LAB [address] [place] [address] * PTT (APTT) (08/29/2018 11:10 PM CDT) APTT >200.0 (HH) 24.0 - 36.5 SEC MAIN LAB Comment: Critical Result APTT:Called to Sandy CARLSON RN at: 23:59:33 by: HAILEE Read back by: Sandy CARLSON RN Specimen Blood Performing Organization Address [facility] Phone Number MAIN LAB [address] [place] [address] * PTT (APTT) (08/29/2018 3:00 PM CDT) APTT 31.5 24.0 - 36.5 SEC MAIN LAB Specimen Blood Performing Organization Address [facility] Phone Number MAIN LAB [address] [place] [address] * CBC (08/29/2018 3:00 PM CDT) White Blood 4.3 (L) 4.5 - 11.0 K/UL MAIN LAB Cells RBC 5.00 4.4 - 5.5 M/UL MAIN LAB Hemoglobin 15.4 13.5 - 16.5 GM/DL [facility] Hematocrit 45.8 40 - 50 % [facility] MCV 91.5 80 - 100 FL [facility] MCH 30.7 26 - 34 PG [facility] MCHC 33.6 32.0 - 36.0 G/DL [facility] RDW 18.9 (H) 11 - 15 % [facility] Platelet Count 128 (L) 150 - 400 K/UL [facility] MPV 11.0 7 - 11 FL [facility] Specimen Blood Performing Organization Address City/State/Zipcode Phone Number [facility] [address] [place] [address] * NON-STOCK DRIER TENDER CYTOLOGY (BODY FLUIDS/TISSUE) (08/29/2018 2:20 PM CDT) Cytology [facility] [email or web address] Department of Pathology and Laboratory Medicine [address] [place] [address] Surgical Pathology Office:[phone] :[phone] CYTOLOGY REPORT NAME: LIUDMILA SAM CYTOLOGY #: [id number] MR #: [id number] ALT ID #: BILLING #: [id number] LOCATION: [facility] DATE OF PROCEDURE: 08/29/2018 AGE: 67 SEX: [...] in this report. +++Electronically Signed Out By+++ ke/08/31/2018 Interpreted by: VAZQUEZ Hyatt MD Resident Specimen Performing Organization Address City/State/Zipcode Phone Number MAIN LAB [address] [place] [address] * IR ASPIRATION/DRAIN (08/29/2018 11:00 AM CDT) [...] Ascites MEDICATIONS: 10 mL subcutaneous Lidocaine 2% CHICKEN CLEANER:DANN Robles ATTENDING: Darius Weaver M.D. TECHNIQUE: Transverse real time images were obtained through the abdomen. The risks and benefits of this procedure were discussed and informed written consent was obtained prior to performing the procedure. The abdomen was then prepped and draped in usual sterile fashion.Limited ultrasound of the abdomen was performed.Under ultrasound guidance, a 5 Frisian centesis needle was advanced into the peritoneal [...] Ascites MEDICATIONS: 10 mL subcutaneous Lidocaine 2% CHICKEN CLEANER: DANN Robles ATTENDING: Darius Weaver M.D. TECHNIQUE: Transverse real time images were obtained through the abdomen. The risks and benefits of this procedure were discussed and informed written consent was obtained prior to performing the procedure. The abdomen was then prepped and draped in usual sterile fashion. Limited ultrasound of the abdomen was performed. Under ultrasound guidance, a 5 Frisian centesis needle was advanced into the peritoneal [...] on 08/29/2018 3:04 PM. Performing Organization Address [facility] Phone Number RAD RESULTS * GRAM STAIN (08/29/2018 10:04 AM CDT) Battery Name GRAM STAIN MAIN LAB Specimen PERITONEAL FLUID MAIN LAB Description Special NONE MAIN LAB Requests Gram Stain RARE [facility] NEUTROPHILS FEW RBC'S NO ORGANISMS SEEN Report Status FINAL [facility] 08/29/2018 Specimen Peritoneal Fluid Performing Organization Address [facility] Phone Number [facility] [address] [place] [address] * CULTURE-WOUND/TISSUE/FLUID(AEROBIC ONLY)W/SENSITIVITY (08/29/2018 10:04 AM CDT) Battery Name ROUTINE CULTURE MAIN LAB Specimen PERITONEAL FLUID MAIN LAB Description Special NONE MAIN LAB Requests Direct Gram RARE MAIN LAB Stain NEUTROPHILS FEW RBC'S NO ORGANISMS SEEN Culture NO GROWTH 5 DAYS MAIN LAB Report Status FINAL [facility] 09/03/2018 Specimen Peritoneal Fluid Performing Organization Address [facility] Phone Number [facility] [address] [place] [address] * PERITONEAL FLUID TOTAL PROTEIN (08/29/2018 10:04 AM CDT) Peritoneal <1.5 g/dL [facility] Fluid Total Comment: Protein Ascites fluidtotal protein >1g/dL favors secondary bacterial peritonitis over spontaneous bacterial peritonitis Specimen Peritoneal Fluid Performing Organization Address [facility] Phone Number MAIN LAB [address] [place] [address] * PERITONEAL FLUID ALBUMIN (08/29/2018 10:04 AM CDT) Peritoneal <1.5 g/dL [facility] Fluid Albumin Comment: Serum to ascites albumin gradient (SAAG) >1.1 g/d is seen in portal hypertension. SAAG <1.1 g/dL is seen in cancer and infections Specimen Peritoneal Fluid Performing Organization Address [facility] Phone Number MAIN LAB [address] [place] [address] * CELL COUNT W/DIFF-FLUIDS (08/29/2018 10:04 AM [...] Fluid - Peritoneal Fluid Performing Organization Address [facility] Phone Number MAIN LAB [address] [place] [address] * MAGNESIUM (08/29/2018 4:17 AM CDT) Magnesium 2.3 1.6 - 2.6 mg/dL [facility] Specimen Blood Performing Organization Address [facility]/Zipcode Phone Number MAIN LAB [address] [place] [address] * COMPREHENSIVE METABOLIC PANEL (08/29/2018 4:17 AM CDT) Sodium 134 (L) 137 - 147 MMOL/L [facility] Potassium 4.0 3.5 - 5.1 MMOL/L [facility] Chloride 102 98 - 110 MMOL/L [facility] Glucose 95 70 - 100 MG/DL [facility] Blood Urea 30 (H) 7 - 25 MG/DL [facility] Nitrogen Creatinine 1.55 (H) 0.4 - 1.24 MG/DL [facility] Calcium 8.8 8.5 - 10.6 MG/DL [facility] Total Protein 5.7 (L) 6.0 - 8.0 G/DL [facility] Total Bilirubin 2.9 (H) 0.3 - 1.2 MG/DL [facility] Albumin 2.7 (L) 3.5 - 5.0 G/DL [facility] Alk Phosphatase 178 (H) 25 - 110 U/L [facility] AST (SGOT) 154 (H) 7 - 40 U/L [facility] CO2 24 21 - 30 MMOL/L [facility] ALT (SGPT) 21 7 - 56 U/L [facility] Anion Gap 8 3 - 12 [facility] eGFR Non 45 (L) >60 mL/min [facility] Comment: [place] The eGFR is not validated for use in drug dosing adjustments.Continue to use estimated creatinine clearance per dosing reference text.Please contact the Clinical Pharmacist for questions. eGFR 54 (L) >60 mL/min [facility] [place] Comment: The eGFR is not validated for use in drug dosing adjustments.Continue to use estimated creatinine clearance per dosing reference text.Please contact the Clinical Pharmacist for questions. Specimen Blood Performing Organization Address City/State/Zipcode Phone Number [facility] [address] [place] [address] * CBC AND DIFF (08/29/2018 4:17 AM CDT) White Blood 3.4 (L) 4.5 - 11.0 K/UL [facility] Cells RBC 4.76 4.4 - 5.5 M/UL [facility] Hemoglobin 14.8 13.5 - 16.5 GM/DL [facility] Hematocrit 43.1 40 - 50 % [facility] MCV 90.6 80 - 100 FL [facility] MCH 31.1 26 - 34 PG [facility] MCHC 34.3 32.0 - 36.0 G/DL [facility] RDW 18.4 (H) 11 - 15 % [facility] Platelet Count 109 (L) 150 - 400 K/UL [facility] MPV 9.7 7 - 11 FL [facility] Neutrophils 71 41 - 77 % [facility] Lymphocytes 11 (L) 24 - 44 % [facility] Monocytes 16 (H) 4 - 12 % [facility] Eosinophils 1 0 - 5 % [facility] Basophils 1 0 - 2 % [facility] Absolute 2.40 1.8 - 7.0 K/UL [facility] Neutrophil Count Absolute Lymph 0.40 (L) 1.0 - 4.8 K/UL [facility] Count Absolute 0.50 0 - 0.80 K/UL [facility] Monocyte Count Absolute 0.00 0 - 0.45 K/UL [facility] Eosinophil Count Absolute 0.00 0 - 0.20 K/UL [facility] Basophil Count Specimen Blood Performing Organization Address City/[facility] Phone Number MAIN LAB [address] [place] [address] * PROTIME INR (PT) (08/29/2018 4:17 AM CDT) INR 1.1 0.8 - 1.2 MAIN LAB Specimen Blood Performing Organization Address [facility] Phone Number MAIN LAB [address] [place] [address] * UREA NITROGEN-URINE RANDOM (08/28/2018 10:47 PM CDT) Urea Nitrogen 597 MG/DL MAIN LAB Specimen Urine - Urine Performing Organization Address [facility] Phone Number MAIN LAB [address] [place] [address] * CREATININE-URINE RANDOM (08/28/2018 10:47 PM CDT) Creatinine, 254 MG/DL MAIN LAB Random Specimen Urine - Urine Performing Organization Address [facility] Phone Number MAIN LAB [address] [place] [address] * SODIUM-URINE RANDOM (08/28/2018 10:47 PM CDT) Sodium, Random 22 MMOL/L MAIN LAB Specimen Urine - Urine Performing Organization Address [facility] Phone Number MAIN LAB [address] [place] [address] * URINALYSIS, MICROSCOPIC (08/28/2018 10:47 PM CDT) WBCs,UA 0-2 0 - 2 /HPF [facility] RBCs,UA 0-2 0 - 3 /HPF [facility] MucousUA TRACE [facility] Squamous 0-2 0 - 5 [facility] Epithelial Cells Hyaline Cast PACKED [facility]IN [facility] Specimen Urine - Urine Performing Organization Address City/[facility] Phone Number [facility] [address] [place] [address] * URINALYSIS DIPSTICK (08/28/2018 10:47 PM CDT) Color,UA NGUYEN [facility] Turbidity,UA CLEAR CLEAR-CLEAR [facility] Specific 1.015 1.003 - 1.035 [facility]IN [facility] [place]-Urine pH,UA 5.0 5.0 - 8.0 KU MAIN [...] Specimen Urine - Urine Performing Organization Address City/[facility] Phone Number [facility] [address] [place] [address] * US DOPPLER ABD PELV RETROPER COMP [...] on 08/29/2018 8:05 AM. Performing Organization Address City/[facility]/Zipcode Phone Number RAD RESULTS * BILIRUBIN, DIRECT (08/28/2018 6:55 PM CDT) Bilirubin, 0.7 (H)Comment: SLT HEMOLYSIS <0.4 MG/DL MAIN LAB Direct Specimen Performing Organization Address [facility] Phone Number MA[facility] LAB [address] [place] [address] * PHOSPHORUS (08/28/2018 6:55 PM CDT) Phosphorus 4.0Comment: NOTE NEW REFERENCE 2.0 - 4.5 MG/DL MAIN LAB RANGES Specimen Performing Organization Address [facility] Phone Number MAIN LAB [address] [place] [id number] * MAGNESIUM (08/28/2018 6:55 PM CDT) Magnesium 2.5Comment: SLT HEMOLYSIS 1.6 - 2.6 mg/dL MAIN LAB Specimen Performing Organization Address [facility] Phone Number MAIN LAB [address] [place] [address] * CULTURE-BLOOD W/SENSITIVITY (08/28/2018 6:55 PM CDT) Battery Name BLOOD CULTURE MAIN LAB Specimen BLOOD MAIN LAB Description LEFT FA Special NONE MAIN LAB Requests Culture NO GROWTH 5 DAYS MAIN LAB Report Status FINAL MAIN LAB 09/04/2018 Specimen Blood Performing Organization Address [facility] Phone Number MAIN LAB [address] [place] [address] * LACTIC ACID(LACTATE) (08/28/2018 6:55 PM CDT) Lactic Acid 2.0 0.5 - 2.0 MMOL/L MAIN LAB Specimen Blood Performing Organization Address [facility] Phone Number MAIN LAB [address] [place] [address] * PROTIME INR (PT) (08/28/2018 6:55 PM CDT) INR 1.1 0.8 - 1.2 MAIN LAB Specimen Blood Performing Organization Address [facility] Phone Number MAIN LAB [address] [place] [address] * COMPREHENSIVE METABOLIC PANEL (08/28/2018 6:55 PM CDT) Sodium 134 (L) 137 - 147 MMOL/L [facility]IN [facility] Potassium 4.5Comment: SLT HEMOLYSIS 3.5 - 5.1 MMOL/L [facility]IN [facility] Chloride 98 98 - 110 MMOL/L [facility] Glucose 90 70 - 100 MG/DL [facility] Blood Urea 30 (H) 7 - 25 MG/DL [facility] Nitrogen Creatinine 1.81 (H) 0.4 - 1.24 MG/DL [facility] Calcium 9.3 8.5 - 10.6 MG/DL [facility] Total Protein 6.8 6.0 - 8.0 G/DL [facility] Total Bilirubin 3.2 (H) 0.3 - 1.2 MG/DL [facility] Albumin 3.3 (L) 3.5 - 5.0 G/DL [facility] Alk Phosphatase 203 (H) 25 - 110 U/L [facility] AST (SGOT) 197 (H) 7 - 40 U/L [facility] CO2 25 21 - 30 MMOL/L [facility] ALT (SGPT) 27 7 - 56 U/L [facility] Anion Gap 11 3 - 12 [facility] MAIN [facility] eGFR Non 38 (L) >60 mL/min [facility] Comment: [place] The eGFR is not validated for use in drug dosing adjustments.Continue to use estimated creatinine clearance per dosing reference text.Please contact the Clinical Pharmacist for questions. eGFR 45 (L) >60 mL/min [facility] [place] Comment: The eGFR is not validated for use in drug dosing adjustments.Continue to use estimated creatinine clearance per dosing reference text.Please contact the Clinical Pharmacist for questions. Specimen Blood Performing Organization Address City/State/Zipcode Phone Number MAIN LAB [address] [place] [address] * CBC AND DIFF (08/28/2018 6:55 PM CDT) White Blood 4.3 (L) 4.5 - 11.0 K/UL [facility] MAIN [facility] Cells RBC 5.44 4.4 - 5.5 M/UL [facility] Hemoglobin 17.2 (H) 13.5 - 16.5 GM/DL [facility]IN [facility] Hematocrit 49.2 40 - 50 % [facility]IN [facility] MCV 90.5 80 - 100 FL MAIN LAB MCH 31.5 26 - 34 PG MAIN LAB MCHC 34.8 32.0 - 36.0 G/DL MAIN LAB RDW 18.1 (H) 11 - 15 % [facility] MAIN [facility] Platelet Count 136 (L)Comment: Confirmed by 150 - 400 K/UL [facility] MAIN LAB smear MPV 10.5 7 - 11 FL MAIN LAB Segmented 80 (H) 41 - 77 % [facility]IN [facility] Neutrophils Bands 1 0 - 10 % [facility] MAIN [facility] Lymphocytes 8 (L) 24 - 44 % [facility]IN [facility] Monocytes 9 4 - 12 % MAIN LAB Eosinophil 1 0 - 5 % [facility] MAIN LAB Basophil 1 0 - 2 % MAIN LAB ANISO PRESENT MAIN LAB POIK PRESENT MAIN LAB POLY PRESENT MAIN LAB Ovalocyte PRESENT MAIN LAB Platelet SLT DEC MAIN LAB Estimate Absolute 3.48 1.8 - 7.0 K/UL MAIN LAB Neutrophil Count Manual Specimen Blood Performing Organization Address City/[facility]/Zipcode Phone Number MAIN LAB [address] [place] [address] * CULTURE-BLOOD W/SENSITIVITY (08/28/2018 6:50 PM CDT) Battery Name BLOOD CULTURE MAIN LAB Specimen BLOOD MAIN LAB Description RIGHT FA Special NONE MAIN LAB Requests Culture NO GROWTH 5 DAYS MAIN LAB Report Status FINAL MAIN LAB 09/04/2018 Specimen Blood Performing Organization Address City/[facility]/Zipcode Phone Number MAIN LAB [address] [place] [address] * TELEMETRY STRIPS-SCAN (08/28/2018 12:00 AM CDT) Narrative Performed At Ordered by an unspecified provider. * ECG-SCAN (08/28/2018 12:00 AM CDT) Narrative Performed At Ordered by an unspecified provider. documented in this encounter Visit Diagnoses Diagnosis Hypotension, unspecified hypotension type - Primary documented in this encounter Administered Medications Action Date Dose Rate Site Medication Order MAR Action 08/31/2018 4:18 PM CDT 500 mL 100 mL/hr albumin 5% injection 500 mL Given - New 500 mL, 500 mL, Intravenous, at 100 Bag mL/hr, ONCE, 1 dose, Mirta 08/31/18 at 1430 09/01/2018 4:24 AM CDT 500 mL albumin 5% injection 500 mL Given - New 500 mL, 500 mL, Intravenous, ONCE, 1 Bag dose, Tue09/01/18 at 0245 09/01/2018 2:58 PM CDT 500 mL 150 mL/hr albumin 5% injection 500 mL Given - New 500 mL, 500 mL, Intravenous, at 150 Bag mL/hr, ONCE, 1 dose, Tue09/01/18 at 1415 08/29/2018 10:41 AM CDT 37.5 g albumin 25% injection Given - New INTRA-PROCEDURE MED(CONT), Starting Tue Bag 08/29/18 at 1010, Until Tue08/29/18 at 1041 37.5 g Given - New Bag 08/29/2018 10:10 AM CDT 08/29/2018 8:59 PM CDT 1 drop dextran 70/hypromellose (GENTEAL TEARS; Given BION TEARS) ophthalmic solution 1-2 drop 1-2 drop, Both Eyes, THREE TIMES DAILY, First dose on Tue08/28/18 at 2100, Until Discontinued 1 drop Given 08/29/2018 2:01 PM CDT 1 drop Given 08/29/2018 7:48 AM CDT 09/04/2018 2:59 PM CDT 2 drops dextran 70/hypromellose (NATURAL BALANCE Given TEARS) 0.1/0.3 % ophthalmic solution 1-2 drop 1-2 drop, Both Eyes, THREE TIMES DAILY, First dose on Tue08/29/18 at 2200, Until Discontinued 2 drops Given 09/04/2018 10:03 AM CDT 2 drops Given 09/03/2018 9:05 PM CDT 08/30/2018 8:47 PM CDT 40 mg Arm, Left enoxaparin (LOVENOX) syringe 40 mg Given 40 mg, Subcutaneous, DAILY, First dose on Tue08/30/18 at 2100, Until Discontinued, For patients undergoing surgery: Consult physician in advance -- enoxaparin is an anticoagulant and may need to be held for 12hr prior to surgery or invasive procedures. NOTE: This is a HIGH ALERT Medication., 08/29/2018 9:38 PM CDT 1,936 Units/hr 48.4 mL/hr heparin (porcine) 20,000 units/D5W 500 Given - New mL infusion (std conc)(premade) Bag 0-2,000 Units/hr (0-50 mL/hr) 500 mL, at 0-50 mL/hr, Intravenous, TITRATE DIRECTED , Starting Tue08/29/18 at 1430, Until Tue08/29/18 at 2154, - Weight-Based Heparin Protocol - Venous Thromboembolism (VTE) - See separate order for initial IV bolus (from bag) - Initial IV infusion 18 units/kg/hr. Initial IV infusion not to exceed 2,000 units/hr - Follow Heparin Infusion Scale - WITH ADJUSTMENT BOLUS for subsequent bolus and rate changes Heparin Infusion Scale - WITH ADJUSTMENT BOLUS aPTT Adj Bolus Dose Pause Infusion Infusion Rate Repeat (secs) (units/kg) (minutes) (units/hr) <65 40 0 Increase 200 units/hr in 6 hours 65-74 20 0 Increase 100 units/hr in 6 hours 75-120 0 0 No Change in 6 hours/qAM* 121-129 0 60 Decrease 100 units/hr in 6 hours 130-150 0 90 Decrease 200 units/hr in 6 hours >150 0 90 Decrease 200 units/hr ++ * After 2 consecutive therapeutic aPTT, go to q AM ++ After 90 minutes, restart heparin at reduced rate AND draw an aPTT. If aPTT remains greater than 120 follow protocol (pause infusion for specified time then decrease infusion rate per protocol), if aPTT is 120 or less continue with reduced rate. Redraw aPTT in 6 hrs and follow protocol. ====NOTE: This is a HIGH ALERT Medication., 1,935 Units/hr 48.4 mL/hr Given - New Bag 08/29/2018 3:54 PM CDT 08/29/2018 3:56 PM CDT 8,600 Units heparin (porcine) BOLUS for continuous Bolus from inf (bag) 8,600 Units Bag 8,600 Units (80 Units/kg 107.5 kg), Intravenous, ONCE, 1 dose, [facility] 08/29/18 at 1430, INITIAL BOLUS for heparin drip -- VTE Treatment Weight-Based Heparin Protocol - Initial IV bolus (from bag): 80 units/kg - Not to exceed 10,000 units - Administer initial bolus dose via pump from infusion bag. NOTE: This is a HIGH ALERT Medication., 09/04/2018 2:58 PM CDT 5,000 Units Ankle, Left heparin (porcine) PF syringe 5,000 Units Given 5,000 Units, Subcutaneous, EVERY 8 HOURS, First dose on [place] 08/31/18 at 2100, Until Discontinued, NOTE: This is a HIGH ALERT Medication., 5,000 Units Abdominal Tissue Given 09/04/2018 6:15 AM CDT 5,000 Units Abdominal Tissue Given 09/03/2018 9:05 PM CDT 09/02/2018 3:11 PM CDT 2 mg loperamide (IMODIUM A-D) capsule 2 mg Given 2 mg, Oral, NEEDED, Starting 09/02/18 at 0750, Until 09/04/18 at 1744, Diarrhea, GIVE WITH EACH LOOSE STOOL; NOT TO EXCEED 16MG/24HRS, 2 mg Given 09/02/2018 10:38 AM CDT 2 mg Given 09/02/2018 7:59 AM CDT 08/29/2018 1:12 AM CDT 3 mg melatonin tablet 3 mg Given 3 mg, Oral, ONCE, 1 dose, Tue08/29/18 at 0030 09/03/2018 9:05 PM CDT 3 mg melatonin tablet 3 mg Given 3 mg, Oral, AT BEDTIME DAILY, First dose on Tue08/29/18 at 2315, Until Discontinued 3 mg Given 09/02/2018 8:47 PM CDT 3 mg Given 09/01/2018 9:11 PM CDT 08/29/2018 7:45 AM CDT 2 drops methylcellulose (GONIOSOL) 2.5 % Given ophthalmic solution 2 drop 2 drop, Both Eyes, NEEDED, Starting 08/28/18 at 1837, Until Tue09/04/18 at 1744, Dry Eyes 2 drops Given 08/28/2018 10:02 PM CDT 08/30/2018 11:51 AM CDT 10 mg midodrine (PROAMATINE) tablet 10 mg Given 10 mg, Oral, THREE TIMES DAILY, First dose on Tue08/30/18 at 0800, Until Discontinued 10 mg Given 08/30/2018 5:41 AM CDT 08/30/2018 4:46 PM CDT 15 mg midodrine (PROAMATINE) tablet 15 mg Given 15 mg, Oral, THREE TIMES DAILY, First dose on Tue08/30/18 at 1700, Until Discontinued 09/04/2018 2:58 PM CDT 15 mg midodrine (PROAMATINE) tablet 15 mg Given 15 mg, Oral, EVERY 8 HOURS, First dose on Tue08/31/18 at 0830, Until Discontinued 15 mg Given 09/04/2018 6:15 AM CDT 15 mg Given 09/03/2018 9:05 PM CDT 09/03/2018 9:05 PM CDT 1 patch Arm, Left nicotine (NICODERM CQ STEP 2) 14 mg/day Patch/Topica patch 1 patch l Applied 1 patch, Transdermal, Administer over 24 Hours, DAILY, First dose on Tue08/28/18 at 2100, Until Discontinued 1 patch Arm, Right Patch/Topical Applied 09/02/2018 8:47 PM CDT 1 patch Arm, Left Patch/Topical Applied 09/01/2018 9:17 PM CDT 08/29/2018 8:58 AM CDT 4 mg ondansetron (ZOFRAN) injection 4 mg Given 4 mg, Intravenous, EVERY 6 HOURS PRN, Starting Tue08/28/18 at 2119, Until Tue09/04/18 at 1744, Nausea/Vomiting Injectable 09/04/2018 2:58 PM CDT 100 mg phenazopyridine (PYRIDIUM) tablet 100 mg Given 100 mg, Oral, THREE TIMES DAILY, First dose on Tue09/03/18 at 1100, Until Discontinued 100 mg Given 09/04/2018 10:03 AM CDT 100 mg Given 09/03/2018 9:06 PM CDT 08/29/2018 10:24 AM CDT 250 mL 150 mL/hr sodium chloride 0.9 % infusion Given - New 250 mL, 250 mL, Intravenous, at 150 Bag mL/hr, BOLUS, 1 dose, Tue08/29/18 at 1030 09/01/2018 2:05 AM CDT 500 mL 100 mL/hr sodium chloride 0.9 % infusion Given - New 500 mL, 500 mL, Intravenous, at 100 Bag mL/hr, ONCE, 1 dose, Tue09/01/18 at 0145 09/04/2018 2:58 PM CDT 0.4 mg tamsulosin (FLOMAX) capsule 0.4 mg Given 0.4 mg, Oral, DAILY AFTER BREAKFAST, First dose on Tue09/04/18 at 1545, Until Discontinued, NURSING: Please educate patient and document: Give 1/2 hour following same meal everyday. Do not crush, chew or open the capsule. , 09/03/2018 3:01 PM CDT vitamin A & D topical ointment Given Topical, NEEDED, Starting 09/03/18 at 1201, Until Tue09/04/18 at 1744, wound, Apply to affected area, documented in this encounter
--- OUTSIDE RECORDS SUMMARY | 2018-09-29 08:51 | XMS REPORT | Encounter Summary ---
Author Author [facility] Organization [facility] Address Unknown Phone Unavailable Care Team Providers Care Tank Wagon Operator Name Role Phone PCP Unavailable Encounter Details Care Team Description Date Type Department 06/05/[address] [facility] [address] [address] Social History Date Tobacco Use Types Packs/Day Years Used Never Assessed Sex Assigned at Date Recorded Not on file Industry Job Start Date Occupation Not on file Not on file Not on file Travel End Travel History Travel Start No recent travel history available. documented as of this encounter Medications at Time of Discharge Start Date End Date Medication Sig Dispensed Refills 03/23/2018 08/30/2018 HYDROcodone/acetaminophen 325 tablets 0 (NORCO) 5/325 mg tablet documented as of this encounter Plan of Treatment Not on filedocumented as of this encounter Procedures Comments Procedure Name Priority Date/Time Associated Diagnosis NM PET/CT EXTERNAL Routine 06/05/2018 IMAGING 8:30 AM CDT documented in this encounter Results * NM PET/CT EXTERNAL IMAGING (06/05/2018 8:30 AM CDT) Specimen Narrative Performed At This order has been auto finalized and does not contain a result. documented in this encounter Visit Diagnoses Not on filedocumented in this encounter
--- OUTSIDE RECORDS SUMMARY | 2018-09-29 08:51 | XMS REPORT | Encounter Summary ---
Author Author [facility] Organization [facility] Address Unknown Phone Unavailable Care Team Providers Care Chief Of Production Name Role Phone Mary Ellen Alvarez MD Unavailable Mary Ellen Alvarez MD PCP Reason for Visit * Reason Comments Lymphoma Liver Mass Ascites * Consult, Test & Treat (Routine) Referred By Contact Referred To Contact Status Reason Specialty Diagnoses / Procedures Mary Ellen Alvarez MD [address] 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 (HCC) (Primary Dx); Elevated AFP; Liver mass, right lobe 08/28/2018 Office Visit [facility] [address] [address] Social History Date Tobacco Use Types Packs/Day [...] Signs Reading Time Taken Comments Vital Sign 87/44 08/28/2018 4:19 PM CDT Blood Pressure 88 08/28/2018 3:57 PM CDT Pulse 36.3 C (97.4 F) 08/28/2018 3:57 PM CDT Temperature 16 08/28/2018 3:57 PM CDT Respiratory Rate 96% 08/28/2018 3:57 PM CDT Oxygen Saturation - - Inhaled Oxygen Concentration 107.9 kg (237 lb 14 oz) 08/28/2018 3:57 PM CDT Weight - - Height - - Body Mass Index documented in this encounter Functional Status Date of Assessment Functional Status Response 08/28/2018 Does the patient have a hearing impairment: Yes 08/28/2018 Does the patient have a visual [...] disoriented; "frazzled" documented as of this encounter Patient Instructions * Patient Instructions* Jennifer Sawant RN - 08/28/2018 1:00 PM CDT Hold Lisinopril at home Dr. Vish Carr, PAULA Sawant RN BSN Sho Sumner RN Nurse Line: [phone] Main Line, After Hours: [phone] [phone] documented in this encounter Progress Notes * Jennifer Sawant RN - 08/28/2018 1:00 PM CDT [facility] [place] [place] [facility] Transfer of Care Transfer Type: To Hospital- Direct Admit (via Personal vehicle) Current Location: [facility] Transferring Provider: Dr. Lyons to Dr. Quinones Pager #: [phone] Transferring RN: Jennifer Sawant RN Phone or Pager #: [phone] Reason for Transfer: Admission for low blood pressure and dehydration Cancer Diagnosis: Possible Hepatocellular new diagnosis. Knows parotid lymphoma , obvious gross ascites Chemo consent completed: yes/no Last Chemotherapy Treatment: Type: n/a Date: n/a Last Vital Signs: BP (!) 87/44 (BP Source: Arm, Left Upper, Patient Position: Si tting) | Pulse 88 | Temp 36.3 C (97.4 F) (Oral) | Resp 16 | Wt 107.9 kg (237 lb 14 oz) | SpO2 96% Oxygen Needs: On Room Air IV/Port Access: None Line Status: n/a Ambulation Status: Ambulatory with Prothesis Interventions Done Today : Assessment for new patient visit All orders entered: Meds Given Prior to Transfer: Medications - No data to display Labs Collected Prior to Transfer: None Most recent lab results: No results found for this or any previous visit (from t he past 336 hour(s)). Blood consent completed: No Type and cross completed: No Confirmation of blood type: No Imaging Completed Prior to Transfer: None Other pertinent history: Patient has had outside scans performed in chart. See n avigation documents for current care for oncology with previous office. New sameer ent with Dr. Lyons's team today Unit Receiving Pt: Abigail 11-127 RN Receiving Report: n/a Read Back : no Patient educated with map on directions to [facility] where he will present to admissions. He will then be taken to [facility] from there. * Vish Lyons MD - 08/28/2018 1:00 PM CDT Date of Service: 08/28/2018 Subjective: Reason for Visit: Lymphoma; Liver Mass; and Ascites Ruy Belcher is a 67 y.o. male here for second opinion for his cancer. History of Present Illness Received records from [facility]. I reviewed the records as outlined below. I spent greater than 76 minutes reviewing the below records. The records that were obtained/revi ewed/summarized are scanned into 02 in outside records / media tab / CareEverywh ere tab. Onc Hx. Biopsy on 04/09/2018 from lymph node in the right inferior parotid region reve aled follicular lymphoma, grade 1 of 3. Flow cytometry revealed monoclonal popu lation of B cells expressing CD45, CD19, CD20 with negative CD5 and CD10. Lymph node showed complete effacement by atypical lymphoid population with nodular/fo llicular growth pattern. Strongly positive for BCL-2 and negative for cyclin D1 and sox 11. Serum protein after pheresis and free light chain analysis revealed low album in at 3.3. No abnormal paraprotein bands. Quantitative immunoglobulins showed IgG 908, IgA 361 and IgM 127. Elevated Free kappa 66.72 mg/L, elevated free asif bda 33.28 mg/L and free kappa lambda ratio elevated at 2. CT scan of the neck on 06/12/2018 showed enhancing mass within the right parot id gland measuring 2.9 x 3.2 cm. There appears to be some infiltration along th e inferior aspect of the right parotid. Staging PET scan for Lymphoma on 06/02/2018 showed a large central right lobe liver mass which was PET avid with SUV 9.9. FDG avid lymphadenopathy in the jd st abdomen and subcutaneous nodules in the flanks as well as peritoneum and omen shannen. Staging CT scan on 06/12/[address] Ponce revealed cirrhotic liver with il l-defined low-density right lobe liver mass measuring 6.7 cm. Moderate ascites. Infiltration of omentum and nodularity suspicious for peritoneal carcinomatosi s. AFP greater than 20,000 on 06/20/2018. 06/20/2018 Dr Alvarez clinic visit Refer to [facility]. Patient suspects HCC on imagin g and elevated AFP . Per Dr. Alvarez note AFP > 20,000 His abdomen is very distended today. He first noticed abdominal distention in 2018. His lower extremity edema is also increased. He has difficulty gett ing around. He is fatigued. He ran out of Aldactone. He is continued to take Lasix and lisinopril. His blood pressure is low today. He denies dizziness. H owever he reports that he lost his way to the [facility] [place] and was l ate for his appointment. Review of Systems Constitutional: Positive for fatigue and unexpected weight change. Negative for appetite change, chills and fever. HENT: Negative for sore throat. Respiratory: Negative for cough and shortness of breath. Cardiovascular: Negative for chest pain and leg swelling. Gastrointestinal: Positive for abdominal distention. Negative for abdominal pain , blood in stool, constipation, diarrhea, nausea and vomiting. Genitourinary: Negative for dysuria and hematuria. Musculoskeletal: Negative for back pain. Skin: Negative for rash. Neurological: Negative for headaches. Psychiatric/Behavioral: Negative for sleep disturbance. Medical History: Diagnosis Date Arthritis Cancer of skin Hearing reduced Hypertension Liver cancer (HCC) Lymphoma (HCC) Vision decreased Surgical History: Procedure Laterality Date COLONOSCOPY HX APPENDECTOMY LYMPH NODE BIOPSY MOHS SURGERY History reviewed. No pertinent family history. Social History Socioeconomic History Marital status: Single [...] file Social History Narrative Not on file Objective: No current outpatient medications on file. Vitals: 08/28/18 1557 08/28/18 1601 08/28/18 1619 BP: (!) 88/44 (!) 84/48 (!) 87/44 Pulse: 88 Resp: 16 Temp: 36.3 C (97.4 F) TempSrc: Oral SpO2: 96% Weight: 107.9 kg (237 lb 14 oz) There is no height or weight on file to calculate BMI. Pain Score: Eight Pain Loc: Abdomen(LIVER AND ABDOMEN) Pain Addressed: Admit to the hospital Patient Evaluated for a Clinical Trial: No treatment clinical trial available fo r this patient. Eastern Cooperative Oncology Group performance status is 1, Restricted in physic ally strenuous activity but ambulatory and able to carry out work of a light or sedentary nature, e.g., light house work, office work. Physical Exam Constitutional: He is oriented to person, place, and time. He appears well-marvin shed. He appears cachectic. HENT: Head: Normocephalic and atraumatic. Mouth/Throat: Oropharynx is clear and moist. Eyes: Pupils are equal, round, and reactive to light. Conjunctivae are normal. Neck: Normal range of motion. Neck supple. Cardiovascular: Normal rate and regular rhythm. Pulmonary/Chest: Effort normal and breath sounds normal. Abdominal: Soft. Bowel sounds are normal. He exhibits distension. Musculoskeletal: He exhibits no edema. Lymphadenopathy: Head (right side): Submandibular adenopathy present. He has no cervical adenopathy. Neurological: He is alert and oriented to person, place, and time. Skin: Skin is warm and dry. Multiple SKs Psychiatric: He has a normal mood and affect. His behavior is normal. Vitals reviewed. Assessment and Plan: This is 67 y.o. male with the following problems: Follicular grade 1 non-Hodgkin's lymphoma, clinically stage III. Biopsy on 04/09/2018 from lymph node in the right inferior parotid region reve aled follicular lymphoma, grade 1 of 3. Flow cytometry revealed monoclonal popu lation of B cells expressing CD45, CD19, CD20 with negative CD5 and CD10. Lymph node showed complete effacement by atypical lymphoid population with nodular/fo llicular growth pattern. Strongly positive for BCL-2 and negative for cyclin D1 and sox 11. Serum protein after pheresis and free light chain analysis revealed low album in at 3.3. No abnormal paraprotein bands. Quantitative immunoglobulins showed IgG 908, IgA 361 and IgM 127. Elevated Free kappa 66.72 mg/L, elevated free asif bda 33.28 mg/L and free kappa lambda ratio elevated at 2. PET avid on 06/06/18. CT scan of the neck on 06/12/2018 showed enhancing mass w ithin the right parotid gland measuring 2.9 x 3.2 cm. There appears to be some infiltration along the inferior aspect of the right parotid.. No evidence of bulky disease or significant cytopenias requiring intervention . Follows with Dr. Ponce at [facility]. Currently on surveil jessica. History of hepatitis C. Treated in 2017. With clearance of virus. Liver mass with ascites and omental nodularity. Staging PET scan for Lymphoma on 06/02/2018 showed a large central right lobe liver mass which was PET avid with SUV 9.9. FDG avid lymphadenopathy in the jd st abdomen and subcutaneous nodules in the flanks as well as peritoneum and omen shannen. Staging CT scan on 06/12/[address] Ponce revealed cirrhotic liver with il l-defined low-density right lobe liver mass measuring 6.7 cm. Moderate ascites. Infiltration of omentum and nodularity suspicious for peritoneal carcinomatosi s. AFP greater than 20,000 on 06/20/2018. Plan. We will admit the patient to the hospital for management of hypotension and asci fran. I also discussed obtaining core biopsy of the liver mass for tissue diagno sis and also provide material for clinical trial consideration in future. I dis cussed this is very suspicious for HCC in the setting of history of hep C and ci rrhosis, and elevated AFP. However we will need to rule out cholangiocarcinoma, combined hepato-cholangiocarcinoma, lymphoma (less likely based on clinical pre sentation) and metastatic melanoma (see below). I will discuss with Dr. Ponce after hospital stay and tissue diagnosis is bienvenido ilable. We will arrange for a follow-up visit in clinic after he is discharged from the hospital to formulate a treatment plan. Ascites. Due to cirrhosis and portal hypertension. He was started on Lasix and Aldactone by Dr. Ponce. However his ascites has progressed and causing him discomfort. We will arrange for diagnostic and therapeutic paracentesis includi ng cytology on an inpatient basis. Hypotension. Blood pressure 87/44 today. Denies dizziness. Likely due to diur etics and lisinopril. Also poor p.o. intake and third spacing. Hold lisinopril and diuretics. Patient reports that he has ran out of Aldactone. We will admit the patient for monitoring. Lung nodule. CT of the chest on 06/12/2018 revealed right upper lobe nodule ancelmo uring 2.4 cm. Small left pleural effusion. We will continue to monitor this. Multiple seborrheic keratosis. 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 Patient reports that skin lesion in the middle of the chest was suspect ed to be a melanoma per guardian family member evaluation. The patient/family was/were allowed to ask questions and voice concerns; these w ere addressed to the best of our ability. Patient/family expressed understanding of what was explained and agreed with the present plan. Patient/family has the phone numbers for the Cancer Center and was instructed on how to contact us with any questions or concerns. Vish Lyons MD documented in this encounter Plan of Treatment Not on filedocumented as of this encounter Visit Diagnoses Diagnosis Grade 1 follicular lymphoma of lymph nodes of neck (HCC) - Primary Elevated AFP Other nonspecific findings on examination of blood Liver mass, right lobe Unspecified disorder of liver documented in this encounter
--- OUTSIDE RECORDS SUMMARY | 2018-09-29 08:51 | XMS REPORT | Encounter Summary ---
Author Author [facility] Organization [facility] Address Unknown Phone Unavailable Care Team Providers Care Seasonal Tax Preparer Name Role Phone PCP Unavailable Reason for Visit * Reason Comments Appointment Encounter Details Care Team Description Date Type Department Vish Lyons MD [address] [place] [address] [phone] Appointment 08/01/2018 Telephone [facility] [address] [place] [phone] Social History Date Tobacco Use Types Packs/Day Years Used Never Assessed Sex Assigned at Date Recorded Not on file Industry Job Start Date Occupation Not on file Not on file Not on file Travel End Travel History Travel Start No recent travel history available. documented as of this encounter Miscellaneous Notes * Telephone Encounter - Emperatriz Sanchez, RN - 08/01/2018 2:00 PM CDT Referral received from [facility] for Gastroenterology /Dr. Lyons. Per Dr. Delgado garcia, he is wanting the patient to see Dr. Lyons for new HCC. Called [facility] and a sked them to correct the referral for Oncology/Dr Lyons. Also called Dr. Alvarez's nurse Meera and explained the situation and asked their office to also correct the referral to [facility] for Dr. Lyons. Will wait until new auth is received. Un able to proceed with scheduling until the correct auth arrives. Per [facility] it c ould take several days. documented in this encounter Plan of Treatment Not on filedocumented as of this encounter Visit Diagnoses Not on filedocumented in this encounter
--- OUTSIDE RECORDS SUMMARY | 2018-09-29 08:51 | XMS REPORT | Encounter Summary ---
Author Author [facility] Organization [facility] Address Unknown Phone Unavailable Care Team Providers Care Software Licensing Analyst Name Role Phone Mary Ellen Alvarez MD Unavailable Mary Ellen Alvarez MD PCP Reason for Visit * Reason Comments Navigation Follow Up Encounter Details Care Team Description Date Type Department Vish Lyons MD [address] [place] [address] [phone] Navigation Follow Up 08/28/[address] [address] Social History Date Tobacco Use Types Packs/Day [...] history available. documented as of this encounter Functional Status Date of Assessment [...] disoriented; "frazzled" documented as of this encounter Plan of Treatment Not on filedocumented as of this encounter Visit Diagnoses Not on filedocumented in this encounter
--- OUTSIDE RECORDS SUMMARY | 2018-09-29 08:51 | XMS REPORT | Encounter Summary ---
Author Author [facility] Organization [facility] Address Unknown Phone Unavailable Care Team Providers Care Typewriter Aligner Name Role Phone PCP Unavailable Encounter Details Care Team Description Date Type Department Vish Lyons MD [address] [place] [address] [phone] 08/16/2018 [facility]ation [facility] [address] [address] Social History Date Tobacco Use Types Packs/Day Years Used Never Assessed Sex Assigned at Date Recorded Not on file Industry Job Start Date Occupation Not on file Not on file Not on file Travel End Travel History Travel Start No recent travel history available. documented as of this encounter Plan of Treatment Not on filedocumented as of this encounter Visit Diagnoses Not on filedocumented in this encounter
--- OUTSIDE RECORDS SUMMARY | 2018-09-29 08:51 | XMS REPORT | Encounter Summary ---
Author Author [facility] Organization [facility] Address Unknown Phone Unavailable Care Team Providers Care Psych Assistant Name Role Phone Mary Ellen Alvarez MD Unavailable Mary Ellen Alvarez MD PCP Reason for Visit * Reason Comments Navigation Assessment Encounter Details Care Team Description Date Type Department Vish Lyons MD [address] [place] [address] [phone] Navigation Assessment 08/21/2018 Telephone The [address] [phone] Social History Date Tobacco Use Types Packs/Day Years Used Never Assessed Sex Assigned at Date Recorded Not on file Industry Job Start Date Occupation Not on file Not on file Not on file Travel End Travel History Travel Start No recent travel history available. documented as of this encounter Miscellaneous Notes * Telephone Encounter - Emperatriz Sanchez RN - 08/21/2018 9:57 AM CDT Navigation Intake Assessment Document Patient Name: Ruy Belcher : 1950 [place]: [place] [employer]. For additional assistance with [employer] please contact Sandy moreno at [facility] [phone] Appointment Info: Future Appointments Date Time Provider Department Center 08/28/2018 1:00 PM Vish Lyons MD [facility] Exam Diagnosis & Reason for Visit: Liver masses carcinomatosis, hx hep C. Hx follicular lymphoma DX 03/2018. Direct referral to Dr. Lyons from Dr. Abreu Physician Info: Referring Physician: Dr Alvarez [phone] Location of Films: Outside imaging requested -- CT from May from [facility] in [facility]ACS, PET scan from [facility]-- Location of Pathology: Not requested History of Present Illness: 06/06/2018 PET IMPRESSION:-- see Care Everywhere for report Unusual constellation of findings. 1. This does not likely represent metastatic melanoma. 2. This could represent metastatic lymphoma multifocal distribution neck, abdomen, and chest. 3. The findings in the parotid gland and in the central aspect of the liver and in the omentum and peritoneum are possibly lymphoma, but may represent other entities. 4. Differential offered above. 5. Favored diagnosis: Lymphoma in the parotid glands, neck, tonsillar pillars, interaortocaval lymph node, and in the subcutaneous tissues of the flanks. 6. Favored diagnosis: Metachronous primary hepatocellular carcinoma central aspect liver with cirrhosis and portal venous hypertension with secondary changes of ascites and edema in the peritoneum and omentum, with possible metastatic disease to the peritoneum and omentum with small nodules. Portal venous hypertension. 7. If outside studies and reports are not available, repeat CT scan of the neck, chest, abdomen and pelvis with IV contrast recommended. 8. After that study is performed, or outside studies reviewed, MRI of the liver may also be useful in further evaluation without and with intravenous contrast. 06/12/2018 CT N/C/A/P see paper records 06/20/2018 Dr Alvarez clinic visit Refer to [facility]-- Dr Lyons. Suspects HCC on imaging and elevated AFP . Per Dr. Alvarez note AFP > 20,000 NEEDS Assessment: Genetic Counseling: Genetic Assessment: No identified risk factors Nutrition: Weight: 249 Nutrition Intervention: Provided information about available services Social & Financial: Social and Financial Assessment: Other (Comment)([place] [employer]) Tobacco assessment last 30 days: Not assessed at this time Social and Financial Intervention: Provided information about available services Spiritual & Emotional: Spiritual and Emotional Assessment: Reports feeling and/or sounds anxious, worri ed or irritable Spiritual and Emotional Intervention: Emotional Support provided Physical: Fall Risk: None identified Physical Needs Intervention: Patient encouraged to use compounding technician services for appoin tment(s) Communication: Communication Barrier: No Onc Fertility: Onc Fertility Assessment: Not applicable documented in this encounter Plan of Treatment Not on filedocumented as of this encounter Visit Diagnoses Not on filedocumented in this encounter
--- OUTSIDE RECORDS SUMMARY | 2018-09-29 08:51 | XMS REPORT | Encounter Summary ---
Author Author [facility] Organization [facility] Address Unknown Phone Unavailable Care Team Providers Care [place] Adviser Name Role Phone PCP Unavailable Reason for Visit * Reason Comments Appointment Request Encounter Details Care Team Description Date Type Department Vish Lyons MD [address] [place] [address] [phone] Appointment Request 08/01/2018 Telephone The [address] [phone] Social History Date Tobacco Use Types Packs/Day [...]
--- OUTSIDE RECORDS SUMMARY | 2018-09-29 08:51 | XMS REPORT | Encounter Summary ---
Author Author [facility] Organization [facility] Address Unknown Phone Unavailable Care Team Providers Care Highway Patrol Pilot Name Role Phone PCP Unavailable Encounter Details Care Team Description Date Type Department 06/12/2018 Hospital [facility] Encounter [facility] [address] [address] Social History Date Tobacco Use Types Packs/Day [...] Comments Procedure Name Priority Date/Time Associated Diagnosis CT CHEST/ABD/PEL EXTERNAL Routine 06/12/2018 IMAGING 12:00 AM CDT documented in this encounter Results * CT CHEST/ABD/PEL EXTERNAL IMAGING (06/12/2018 12:00 AM CDT) Specimen Narrative Performed At This order has been auto finalized and does not contain a result. documented in this encounter Visit Diagnoses Not on filedocumented in this encounter
[2018-09-29] MEDS ORDERED: ceFAZolin INJECTION 1,000 MG ONE (08:52)
[2018-09-29] MEDS ORDERED: WATER (STERILE) FOR INJECTION 10 ML ONE (08:52)
[2018-09-29] MEDS ORDERED: ALBUMIN 25% 25 GM/100 ML 100 ML IV ONE ×2 (09:33→11:15)
[2018-09-29] MEDS ORDERED: HYDROmorphone 2 MG/ML VIAL (DILAUDID) IV ONE (10:15)
[2018-09-29] MEDS ORDERED: ONDANSETRON 4 MG/2 ML (SDV) Z0FRAN IVP PRN (10:15)
--- NOTE | 2018-09-29 10:40 | Anesthesia-General Post-Op ---
MAC Patient Condition Mental Status/LOC: Same as Preop Cardiovascular: Satisfactory Nausea/Vomiting: Absent Respiratory: Satisfactory Pain: Controlled Complications: Absent Post Op Complications Complications None Follow Up Care/Instructions Patient Instructions None needed. Anesthesiology Discharge Order Discharge Order Patient is doing well, no complaints, stable vital signs, no apparent adverse anesthesia problems. No complications reported per nursing. REAGAN ANDREA CRNA Sep 29, 2018 10:40
[2018-09-29] MEDS ORDERED: ONDANSETRON 4 MG/2 ML (SDV) Z0FRAN IVP ONE (11:00)
--- NOTE | 2018-09-29 11:44 | Discharge Inst-Simple/Standard ---
Discharge Inst-Standard Patient Instructions/Follow Up Plan of Care/Instructions/FU: 2 weeks Magui Activity as Tolerated: No Discharge Diet: Regular Diet Other Inst to Patient Drain off up to 3 L of fluid per day from Pleur-x catheter. If draining 3 L of fluid off every day notify Dr. Kilgore so that we can initiate draining more. Any issues be seen at that time. ALEX KILGORE DO Sep 29, 2018 11:44
--- NOTE | 2018-09-29 14:11 | Diagnostic Imaging Report ---
Indication: Ascites. Guidance was provided for Dr. Kilgore for PleurX catheter placement. Images demonstrate a large volume of ascites in left lower quadrant. Impression: Sonographic guidance for PleurX catheter placement. Dictated by: Dictated on workstation # [id number]
--- NOTE | 2018-09-30 00:33 | OPERATIVE REPORT ---
DATE OF SERVICE: 09/29/2018 PREOPERATIVE DIAGNOSES: Hepatocellular carcinoma, symptomatic ascites. POSTOPERATIVE DIAGNOSES: Hepatocellular carcinoma, symptomatic ascites. PROCEDURE: Ultrasound-guided PleurX catheter placement in the abdomen. SURGEON: Alex Kilgore DO ANESTHESIA: MAC with local. ESTIMATED BLOOD LOSS: Minimal. COMPLICATIONS: None. INDICATIONS: The patient is a 67-year-old male with symptomatic ascites and a recent diagnosis of hepatocellular carcinoma. He understands risks and benefits of procedure and wished to proceed with procedure. Consent was signed in the chart. DESCRIPTION OF PROCEDURE: The patient was taken to the operating suite. He was prepped and draped in sterile fashion. Timeout was performed. Local anesthetic was infiltrated on the abdomen after ultrasound was used to isolate the best insertion point for catheter placement. An 11 blade scalpel was used to make a small skin incision and the Angiocath needle was inserted into the abdomen until straw-colored fluid was returned and the catheter was advanced and the needle was removed. The guidewire was inserted into the abdomen and the catheter was removed. The wire was secured. Local anesthetic was infiltrated in the abdominal wall for catheter placement. Another incision was made approximately 5 cm away from the initial and the PleurX catheter was then tunneled to the insertion point of the wire. Serial dilators were advanced over the wire and removed until the dilator sheath was then advanced into the abdomen and the dilator was removed and the wire was removed and the catheter was then inserted through the sheath and the sheath was removed. The skin incision at this location was then closed using absorbable suture. At this time, the PleurX catheter was secured with 3-0 silk suture at the exit point of the skin and the abdomen was then drained. A total of 9800 mL of straw-colored appearing fluid was withdrawn from the abdomen. The patient did receive albumin during the case. The area was then washed and dried and then sterile bandage was applied. The patient tolerated procedure well without complications and taken to recovery room in stable condition. Job ID: [id number] DocumentID: [id number] Dictated Date: 09/29/2018 17:52:36 Marketing Analytics Manager Date: 09/30/2018 00:32:35 Dictated By: ALEX KILGORE DO [facility]
--- NOTE | 2018-10-03 15:39 | NUR ---
CM/SS, late entry. Regarding physician discharge referral to [facility], Desk Pens Assembler of HHC reports that he spoke with the patient and his brother and instead of HHC they elected to enroll in hospice services with [facility].
== END 2018-09-29 15:00 | disposition hospice, home (50) ==
LOC: SDC 07:30
PROVIDERS: ATTEND Surgery
DX: K70.31 Alcoholic cirrhosis of liver with ascites (principal); C22.9 Malignant neoplasm of liver, not specified as primary or secondary; I10 Essential (primary) hypertension; F17.210 Nicotine dependence, cigarettes, uncomplicated; Z86.19 Personal history of other infectious and parasitic diseases; Z79.899 Other long term (current) drug therapy
CPT/HCPCS: 76942; 87081